=== PATIENT | male | born 1960 | race Caucasian/White ===

== ENCOUNTER 2020-02-04 10:04 | Emergency (ER) | payer SELFPAY ==
[2020-02-04 10:44] LABS: Absolute Lymphocytes (CBC) 0.2 K/uL (0.7-4.9); Basophils % 0.2 % (0-1.3); Hematocrit 27.5 % (39.6-49.0); Lymphocytes % 4.2 % (15.3-44.8); MPV 7.5 fL (7.6-11.3); RBC Red Blood Cell Count 2.92 M/uL (4.33-5.43)
[2020-02-04 10:48] LABS: Protime INR 1.03
[2020-02-04] MEDS ORDERED: ONDANSETRON 4 MG/2 ML VIAL ONE (10:59)
[2020-02-04] MEDS ORDERED: NA CHLORIDE 0.9% 250 ML ONE (10:59)
[2020-02-04] MEDS ORDERED: FAMOTIDINE 20 MG/2 ML VIAL IV ONE (10:59)
[2020-02-04] MEDS ORDERED: CEFEPIME/SWI 2gm 2 GM/20 ML SYR IV ONE (11:00)
[2020-02-04 11:03] LABS: Albumin 3.5 g/dL (3.4-5.0); Bilirubin Direct 0.1 mg/dL (0-0.2); Bilirubin Total 0.4 mg/dL (0.2-1.0); Troponin (Emerg Dept Use Only) 0.02 ng/mL (0.0-0.045)
--- NOTE | 2020-02-04 11:28 | ER ---
Nurse's Notes [facility] Name: Dg Camacho Age: 59 yrs Sex: Male : 1960 Arrival Date: 02/04/2020 Time: 10:07 Bed 4 Private MD: Diagnosis: Other sepsis Presentation: 02/03 10:10 Chief complaint: EMS states: NAUSEA AND DIARRHEA THIS MORNING WITH FEVER. Coronavirus bp screen: diarrhea, fever, nausea, Client presents with at least one sign or symptom that may indicate coronavirus-19. Standard/surgical mask placed on the client. Provider contacted for isolation considerations. Ebola Screen: No symptoms or risks identified at this time. Initial Sepsis Screen: Does the patient meet any 2 criteria? Temp <36.0*C (96.8*F)) or > 38.3*C (100.9*F). HR > 90 bpm. Yes Does the patient have a suspected source of infection? No. Patient's initial sepsis screen is negative. Risk Assessment: Do you want to hurt yourself or someone else? Patient reports no desire to harm self or others. Onset of symptoms was February 04, 2020. 10:10 Method Of Arrival: EMS: [facility] bp 10:10 Acuity: LIZ 3 bp Triage Assessment: 10:12 General: Appears distressed, uncomfortable, ill, Behavior is cooperative, appropriate bp for age, anxious. Pain: Denies pain. EENT: No deficits noted. Neuro: No deficits noted. Cardiovascular: Rhythm is sinus tachycardia. Respiratory: Airway is patent Respiratory effort is even, unlabored. GI: Abdomen is obese, Reports diarrhea, nausea. : No signs and/or symptoms were reported regarding the genitourinary system. Derm: No deficits noted. Musculoskeletal: No deficits noted. Historical: - Allergies: 10:12 PENICILLINS; bp - PMHx: 10:12 Diabetes - IDDM; Hypertension; ESRD; Dialysis; bp - Immunization history:: Adult Immunizations unknown. - Social history:: Smoking status: Patient denies any tobacco usage or history of. Screenin:10 Abuse screen: Denies threats or abuse. Denies injuries from another. Nutritional bp screening: No deficits noted. Tuberculosis screening: No symptoms or risk factors identified. Fall Risk None identified. Assessment: 10:10 General: SEE TRIAGE NOTE. bp 10:55 Reassessment: awaiting pharmacy to bring cefepime. ss 11:45 Reassessment: Pt denies pain/ nausea. Pt reports that he feels better than when he ss first arrived, but is still not feeling "100%". 12:16 Reassessment: Patient appears in no apparent distress at this time. Patient and/or ss family updated on plan of care and expected duration. Pain level reassessed. Pt updated on plan of care. Transfer initiated with [facility]. Pt agrees with plan of care. Flagyl infusing at this time. Awaiting for infusion to complete prior to starting VANC infusion. Pt is resting in exam room 4. Eyes closed. Respirations remain even and unlabored. 13:01 Reassessment: Patient appears in no apparent distress at this time. Patient and/or ss family updated on plan of care and expected duration. Pain level reassessed. Patient is alert, oriented x 3, equal unlabored respirations, skin warm/dry/pink. report given to MIRZA Lazaro at [facility]. Awaiting EMS for transportation. Vital Signs: 10:10 BP 163 / 90; Pulse 120; Resp 20; Temp 101.3; Pulse Ox 100% ; bp 10:42 BP 157 / 55; Pulse 109; Resp 18; Pulse Ox 96% on R/A; mh5 11:41 BP 150 / 52; Pulse 104; Resp 17; Pulse Ox 99% on R/A; ss 11:58 Temp 101.0(TE); ss 12:27 BP 154 / 49; Pulse 93; Resp 15; Pulse Ox 96% on R/A; Pain 0/10; ss 12:35 Temp 100.0(TE); ss ED Course: 10:07 Patient arrived in ED. em1 10:08 Kevin Juárez PA is PHCP. cp 10:08 Cortez Jordan MD is Attending Physician. cp 10:10 Jesus Virk, MIRZA is Primary Nurse. bp 10:10 Patient has correct armband on for positive identification. Bed in low position. Call bp light in reach. Side rails up X2. 10:12 Triage completed. bp 10:14 Arm band placed on. bp 10:41 Basic Metabolic Panel Sent. mh5 10:41 Blood Culture Adult (2) Sent. mh5 10:41 CBC with Diff Sent. mh5 10:41 CPK Sent. mh5 10:41 Lactate Sent. mh5 10:41 LFT's Sent. 5 10:41 Lipase Sent. 5 10:41 Procalcitonin Sent. 5 10:41 Protime (+inr) Sent. 5 10:41 Ptt, Activated Sent. 5 10:41 Troponin (emerg Dept Use Only) Sent. 5 10:42 Warm blanket given. price analyst on. Pulse ox on. NIBP on. 5 11:04 Chest Single View XRAY In Process Unspecified. EDMS 12:16 No provider procedures requiring assistance completed. Patient transferred, IV remains ss in place. Administered Medications: 10:50 Drug: Zofran (Ondansetron) 4 mg Route: IVP; Site: right upper arm; ss 11:59 Follow up: Response: No adverse reaction; Nausea is decreased ss 10:52 Drug: NS 0.9% 250 ml Route: IV; Rate: 250 ml/hr; Site: right antecubital; ss 12:00 Follow up: IV Status: Completed infusion; IV Intake: 250ml ss 10:54 Drug: Pepcid 20 mg Route: IVP; Site: right upper arm; ss 11:59 Follow up: Response: No adverse reaction ss 11:45 Drug: Tylenol 1000 mg Route: PO; ss 12:37 Follow up: Response: No adverse reaction; Temperature is decreased ss 11:48 Drug: Cefepime 2 grams Route: IVPB; Rate: 200 ml/hr; Infused Over: 30 mins; Site: right upper arm; 12:00 Follow up: given over 2-3 minutes per pharmacy instructions ss 12:00 Follow up: IV Status: Completed infusion ss 12:05 Drug: Flagyl 500 mg Volume: 100 ml; Route: IVPB; Rate: 200 ml/hr; Infused Over: 30 ss mins; Site: right upper arm; 12:36 Follow up: IV Status: Completed infusion; IV Intake: 100ml ss 12:37 Drug: vancoMYCIN 1 grams Route: IVPB; Infused Over: 2 hrs; Site: right upper arm; ss 12:37 Follow up: IV Status: Infusion continued upon transfer ss Intake: 12:00 IV: 250ml; Total: 250ml. ss 12:36 IV: 100ml; Total: 350ml. Outcome: 11:27 ER care complete, transfer ordered by . cp 12:16 Condition: improved ss 12:16 Instructed on the need for transfer. 13:21 Transferred by ground EMS to [facility], Transfer form completed. ss 13:22 Patient left the ED. ss Signatures: Dispatcher [employer] Dg Rae em1 Riddhi Araujo, MIRZA RN ss Kevin Juárez PA PA cp Martinez, Maria [facility] Jesus Virk, RN RN bp
--- NOTE | 2020-02-04 11:29 | EDPHYS ---
Physician Documentation [facility] Name: Dg Camacho Age: 59 yrs Sex: Male : 1960 Arrival Date: 02/04/2020 Time: 10:07 Bed 4 Private MD: ED Physician Cortez Jordan HPI: 02/03 10:15 This 59 yrs old Male presents to ER via EMS with complaints of Fever. cp 10:15 The patient reports fever, with an emergency department temperature of 101.3 degrees cp Fahrenheit. Onset: The symptoms/episode began/occurred this morning. 10:15 Associated signs and symptoms: Pertinent positives: nausea, vomiting, Pertinent cp negatives: abdominal pain, altered mental status, chest pain, cough, diarrhea, headache, shortness of breath. Severity of symptoms: in the emergency department the symptoms are unchanged despite home interventions. Patient reports he has been unable to perform home peritoneal dialysis since Wednesday due to concern for obstructed port. Patient reports fever and chills since this morning, nausea and vomiting. Historical: - Allergies: 10:12 PENICILLINS; bp - PMHx: 10:12 Diabetes - IDDM; Hypertension; ESRD; Dialysis; bp - Immunization history:: Adult Immunizations unknown. - Social history:: Smoking status: Patient denies any tobacco usage or history of. ROS: 10:15 Constitutional: Positive for chills, fever, poor PO intake. cp 10:15 Eyes: Negative for injury, pain, redness, and discharge. cp 10:15 ENT: Negative for ear pain, sore throat, difficulty swallowing, difficulty handling cp secretions. 10:15 Cardiovascular: Negative for chest pain, edema. 10:15 Respiratory: Negative for cough, shortness of breath, wheezing. 10:15 Abdomen/GI: Positive for nausea and vomiting, Negative for abdominal pain, diarrhea, constipation, black/tarry stool, rectal bleeding. 10:15 Back: Negative for pain at rest, pain with movement. 10:15 Skin: Negative for rash. 10:15 Neuro: Negative for altered mental status, headache, weakness. 10:15 All other systems are negative. Exam: 10:20 Constitutional: The patient appears in no acute distress, alert, awake, cp non-diaphoretic, non-toxic, well developed, well nourished, febrile. 10:20 Head/Face: Normocephalic, atraumatic. cp 10:20 Eyes: Periorbital structures: appear normal, Pupils: equal, round, and reactive to light and accomodation, Extraocular movements: intact throughout, Conjunctiva: normal, no exudate, no injection, Sclera: no appreciated abnormality, Lids and lashes: appear normal, bilaterally. 10:20 ENT: External ear(s): are unremarkable, Nose: is normal, Mouth: Lips: moist, Oral mucosa: moist, Posterior pharynx: Airway: no evidence of obstruction, patent. 10:20 Neck: ROM/movement: is normal, is supple, without pain, no range of motions limitations, no meningismus. 10:20 Chest/axilla: Inspection: normal, Palpation: is normal, no crepitus, no tenderness. 10:20 Cardiovascular: Rate: tachycardic, Rhythm: regular, Edema: is not appreciated, JVD: is not appreciated. 10:20 Respiratory: the patient does not display signs of respiratory distress, Respirations: normal, no use of accessory muscles, no retractions, labored breathing, is not present, Breath sounds: are clear throughout, no decreased breath sounds, no stridor, no wheezing. 10:20 Abdomen/GI: Inspection: distension, is not seen, Bowel sounds: active, all quadrants, Palpation: abdomen is soft and non-tender, in all quadrants, rebound tenderness, is not appreciated, voluntary guarding, is not appreciated, involuntary guarding, is not appreciated. 10:20 Back: CVA tenderness, is absent. 10:20 Skin: cellulitis, is not appreciated, no rash present. 10:20 Neuro: Orientation: to person, place \T\ time. Mentation: is normal, Motor: moves all fours, strength is normal, Sensation: is normal. 10:51 ECG was reviewed by the Attending Physician. cp Vital Signs: 10:10 BP 163 / 90; Pulse 120; Resp 20; Temp 101.3; Pulse Ox 100% ; bp 10:42 BP 157 / 55; Pulse 109; Resp 18; Pulse Ox 96% on R/A; mh5 11:41 BP 150 / 52; Pulse 104; Resp 17; Pulse Ox 99% on R/A; ss 11:58 Temp 101.0(TE); ss 12:27 BP 154 / 49; Pulse 93; Resp 15; Pulse Ox 96% on R/A; Pain 0/10; ss 12:35 Temp 100.0(TE); ss MDM: 10:12 Patient medically screened. 11:00 Differential diagnosis: pneumonia UTI, sepsis. 12:35 Physician consultation: was contacted at 12:30, regarding regarding transfer, to [facility]. patient's condition, would like medications started, Vancomycin and Flagyl, DR Jones is consulting physician. 12:35 Data reviewed: vital signs, nurses notes, lab test result(s), EKG, radiologic studies, cp plain films, I have discussed the patient's presentation/case with the attending Emergency Department Physician;. Test interpretation: by ED physician or midlevel provider: ECG. Counseling: I had a detailed discussion with the patient and/or guardian regarding: the historical points, exam findings, and any diagnostic results supporting the discharge/admit diagnosis, lab results, radiology results, the need to transfer to another facility, [facility] does not immediately have the required specialist. 02/03 10:11 Order name: Basic Metabolic Panel; Complete Time: 11:21 02/03 10:11 Order name: Blood Culture Adult (2) 02/03 10:11 Order name: CBC with Diff; Complete Time: 12:21 02/03 11:21 Interpretation: Normal except: WBC 3.7; RBC 2.92; HGB 9.4; HCT 27.5; PLT 150; MPV 7.5; cp HESHAM% 93.2; LYM% 4.2; MN% 0.7; LYMA 0.2; MNA 0.0. 02/03 10:11 Order name: CPK; Complete Time: 11:21 02/03 10:11 Order name: Lactate; Complete Time: 11:03 02/03 11:03 Interpretation: Within normal limits: LAC 0.8. 02/03 10:11 Order name: LFT's; Complete Time: 11:21 02/03 11:46 Interpretation: Normal except: ALK 192; A/G 1.0. 02/03 10:11 Order name: Lipase; Complete Time: 11:21 02/03 10:11 Order name: Procalcitonin; Complete Time: 11:21 02/03 10:11 Order name: Protime (+inr); Complete Time: 11:03 02/03 10:11 Order name: Ptt, Activated; Complete Time: 11:03 02/03 10:11 Order name: Troponin (emerg Dept Use Only); Complete Time: 11:21 02/03 10:48 Order name: Manual Differential; Complete Time: 12:21 EDMT 02/03 12:22 Interpretation: Normal except: SEGS 90; BANDS [F] 5; LYM 4. 02/03 10:52 Order name: Glucose, Ancillary Testing; Complete Time: 11:03 EDMT 02/03 10:11 Order name: Chest Single View XRAY; Complete Time: 12:21 02/03 10:11 Order name: Accucheck; Complete Time: 10:41 02/03 10:11 Order name: Cardiac monitoring; Complete Time: 10:42 02/03 10:11 Order name: EKG - Nurse/Tech; Complete Time: 10:42 02/03 10:11 Order name: IV Saline Lock - Large Bore; Complete Time: 10:42 cp 02/03 12:51 Order name: Urine Microscopic Only 02/03 12:51 Order name: Urine Culture 02/03 12:59 Order name: Urine Dipstick--Ancillary (enter results) [facility] 02/03 13:00 Order name: SARS-COV-2 RT PCR [facility] 02/03 10:11 Order name: Labs collected and sent; Complete Time: 10:55 02/03 10:11 Order name: O2 Per Protocol; Complete Time: 10:15 02/03 10:11 Order name: O2 Sat Monitoring; Complete Time: 10:15 02/03 10:11 Order name: Urine Dipstick-Ancillary (obtain specimen); Complete Time: 12:55 cp 02/03 11:28 Order name: Vital Signs: please update vitals to include temp; Complete Time: 11:41 cp 02/03 12:51 Order name: Urine Dipstick-Ancillary (obtain specimen); Complete Time: 12:55 cp EC:51 Rate is 108 beats/min. Rhythm is regular. NV interval is normal. QRS interval is cp normal. QT interval is normal. Interpreted by me. Reviewed by me. Administered Medications: 10:50 Drug: Zofran (Ondansetron) 4 mg Route: IVP; Site: right upper arm; ss 11:59 Follow up: Response: No adverse reaction; Nausea is decreased ss 10:52 Drug: NS 0.9% 250 ml Route: IV; Rate: 250 ml/hr; Site: right antecubital; ss 12:00 Follow up: IV Status: Completed infusion; IV Intake: 250ml ss 10:54 Drug: Pepcid 20 mg Route: IVP; Site: right upper arm; ss 11:59 Follow up: Response: No adverse reaction ss 11:45 Drug: Tylenol 1000 mg Route: PO; ss 12:37 Follow up: Response: No adverse reaction; Temperature is decreased ss 11:48 Drug: Cefepime 2 grams Route: IVPB; Rate: 200 ml/hr; Infused Over: 30 mins; Site: right ss upper arm; 12:00 Follow up: given over 2-3 minutes per pharmacy instructions ss 12:00 Follow up: IV Status: Completed infusion ss 12:05 Drug: Flagyl 500 mg Volume: 100 ml; Route: IVPB; Rate: 200 ml/hr; Infused Over: 30 ss mins; Site: right upper arm; 12:36 Follow up: IV Status: Completed infusion; IV Intake: 100ml ss 12:37 Drug: vancoMYCIN 1 grams Route: IVPB; Infused Over: 2 hrs; Site: right upper arm; ss 12:37 Follow up: IV Status: Infusion continued upon transfer Disposition: 02/04 06:44 Co-signature as Attending Physician, Cortez Jordan MD I agree with the assessment and kdr plan of care. Disposition: 02/04/20 11:27 Transfer ordered to [facility]. Diagnosis is Other sepsis. - Reason for transfer: Higher level of care. - Accepting physician is DR Abelardo Brar. - Condition is Stable. - Problem is new. - Symptoms have improved. Signatures: Dispatcher [employer] EDMS Cortez Jordan MD MD kdr Smirch, Shelby, RN RN ss Kevin Juárez PA PA cp Peltier, Brian, MIRZA RN bp Corrections: (The following items were deleted from the chart) 02/03 11:21 11:03 Normal except: WBC 3.7; RBC 2.92; HGB 9.4; HCT 27.5; PLT 150; MPV 7.5; HESHAM% 93.2; cp LYM% 4.2; MN% 0.7; LYMA 0.2. cp 11:58 11:27 02/04/2020 11:27 Transfer ordered to [facility]. Diagnosis is Other sepsis. cp Reason for transfer: Higher level of care. Accepting physician is Doctor. Condition is Stable. Problem is new. Symptoms have improved. cp 12:08 11:30 CORONAVIRUS+MR.LAB.BRZ ordered. EDMS EDMS 13:22 11:58 02/04/2020 11:27 Transfer ordered to [facility]. Diagnosis is Other sepsis. ss Reason for transfer: Higher level of care. Accepting physician is DR Abelardo Brar. Condition is Stable. Problem is new. Symptoms have improved. cp
[2020-02-04] MEDS ORDERED: ACETAMINOPHEN 500 MG TAB ONE (11:56)
--- NOTE | 2020-02-04 12:16 | RAD REPORT ---
EXAM DESCRIPTION: RAD - Chest Single View - 02/04/2020 11:02 am CLINICAL HISTORY: FEVER, abdominal pain COMPARISON: April 2011 TECHNIQUE: AP portable chest image was obtained 02/04/2020 11:02 am . FINDINGS: Lungs are clear. Heart and vasculature are normal. No measurable pleural effusion and no p neumothorax. No acute bony abnormality seen. No acute aortic findings suspected. IMPRESSION: No acute cardiopulmonary process.
[2020-02-04 12:18] LABS: Blood Morphology Comment NOT SEEN (NOT SEEN); Platelet Estimate ADEQ
[2020-02-04] MEDS ORDERED: METRONIDAZOLE 500mg IVPB 500 MG/100 ML BAG IV ONE (12:19)
[2020-02-04] MEDS ORDERED: VANCOMYCIN/NS 1 gm 1 GM/250 ML BAG IVPB ONE (13:00)
[2020-02-04 13:01] LABS: Urine Blood 1+ (NEG); Urine Glucose NEGATIVE (NEG); Urine Protein 3+ (NEG)
[2020-02-04 13:05] LABS: Urine Bacteria <20 /HPF (NONE SEEN); Urine Culture Reflex Order NOT NEEDED; Urine RBC <5 /HPF (NONE SEEN)
[2020-02-04 13:32] VITALS: BP 154/49; O2SAT 96
[2020-02-04 13:34] VITALS: TEMP 100
== END 2020-02-04 13:22 | disposition short-term general hospital (02) ==
LOC: ER 10:04
DX: A41.89 Other specified sepsis (principal); Z20.828 Contact with and (suspected) exposure to other viral communicable diseases; R11.2 Nausea with vomiting, unspecified; E11.22 Type 2 diabetes mellitus with diabetic chronic kidney disease; I12.0 Hypertensive chronic kidney disease with stage 5 chronic kidney disease or end stage renal disease; N18.6 End stage renal disease; Z99.2 Dependence on renal dialysis; Z88.0 Allergy status to penicillin
CPT/HCPCS: 36415; 71045; 80048; 80076; 81003; 81015; 82550; 82947; 83605; 83690; 84145; 84484; 85025; 85610; 85730; 87040; 87086; 87088; 93005; 99285; J0692; J2405; J3370; J7050; U0003

== ENCOUNTER 2020-04-20 08:43 | Emergency (ER) | payer OTHER, SELFPAY ==
--- OUTSIDE RECORDS SUMMARY | 2020-04-20 08:47 | XMS REPORT | Clinical Summary ---
:1960 Author Organization [facility] Address [address] [place] [address] Care Team Providers Name Role Phone Julio César Marin MD Primary Care Provider Allergies Active Allergy Reactions Severity Noted Date Comments Penicillins Other (See Comments) 06/12/2008 Allergy as a child Medications Medication Sig Dispensed Refills Start End Status Date Date FLUoxetine (PROzac) 10 Take 10 mg by 0 Active MG capsule mouth daily. INSULIN SUBCUTANEOUS Inject under 0 Active PUMP, HUMALOG, 100 the skin UNITS/ML INSULIN PUMP continuously. INFUSION (HumaLOG) albuterol (ACCUNEB) Take 2.5 mg by 0 Active 2.5 mg /3 mL (0.083 %) nebulization nebulizer solution every 4 (four) hours as needed for wheezing. doxazosin (CARDURA) 8 Take by mouth 2 0 Active MG tablet (two) times a day. atorvastatin (LIPITOR) Take 40 mg by 0 Active 40 MG tablet mouth nightly. ALPRAZolam (XANAX) 0.5 Take 0.5 mg by 0 Active MG tablet mouth as needed for anxiety. losartan (COZAAR) 100 Take 100 mg by 0 Active MG tablet mouth nightly. vit B complex-vitamin Take 1 tablet 0 Active C-folic acid by mouth daily. (NEPHRO-JOSAFAT OTC) 0.8 mg tablet sevelamer (RENAGEL) Take 800 mg by 0 Active 800 MG tablet mouth 3 (three) times a day with meals. furosemide (LASIX) 80 Take 80 mg by 0 Active mg tablet mouth 2 (two) times a day. famotidine (PEPCID AC Take by mouth 2 0 Active MAXIMUM STRENGTH ORAL) (two) times a day. ondansetron (ZOFRAN) 4 Take 4 mg by 0 Active MG tablet mouth every 8 (eight) hours as needed for nausea or vomiting. carvediloL (COREG) Take 12.5 mg by 0 Active 12.5 MG tablet mouth 2 (two) times a day with meals. NIFEdipine XL Take 30 mg by 0 Ac tive (PROCARDIA XL) 30 MG mouth daily. 24 hr tablet polyethylene glycol Take 17 g by 30 packet 0 02/06/20 Active (MIRALAX) 17 gram mouth daily as 20 packet needed for constipation. multivitamin with Take 1 tablet 0 Discontinued minerals tablet by mouth daily. 020 (Patient Discharge) diltiazem (TIAZAC) 420 Take 420 mg by 0 Discontinued MG 24 hr capsule mouth daily. 020 (Stop Taking at [facility]) hydroCHLOROthiazide Take 37.5 mg by 0 /05 11/ Discontinued (HYDRODIURIL) 25 MG mouth daily. 020 (Stop Taking tablet Take 1 and 04/06 at [facility]) tablets daily clonIDINE HCl Take 0.2 mg by 0 D iscontinued (CATAPRES) 0.2 MG mouth 3 (three) 020 (Patient tablet times a day. [facility]) diltiazem CD (CardIZEM Take 1 capsule 30 capsule 0 07/31/19 0 CD) 360 MG 24 hr (360 mg total) 20 020 capsule by mouth daily for 30 days. furosemide (LASIX) 80 Take 1 tablet 30 tablet 0 07/30/19 05/2 6/2 mg tablet (80 mg total) 20 020 by mouth daily for 30 days. valsartan (DIOVAN) 320 Take 1 tablet 30 tablet 0 07/31/1901/06 MG tablet (320 mg total) 20 020 by mouth daily for 30 days. diltiazem (TIAZAC) 360 Take 360 mg by 0 Discontinued MG 24 hr capsule mouth. 020 (St op Taking at [facility]) valsartan (DIOVAN) 320 Take 320 mg by 0 Discontinued MG tablet mouth daily. 020 ([facility] st Cleanup) amLODIPine (NORVASC) 5 Take 1 tablet 0 10/04 Discontinued mg tablet by mouth daily. 020 tamsulosin (Flomax) Take 1 capsule 30 capsule 0 10/12/19 08/0 8/2 0.4 mg capsule (0.4 mg total) 20 020 by mouth daily for 30 days. valsartan (DIOVAN) 320 Take 320 mg by 0 Discontinued MG tablet mouth daily. 020 (Stop T aking at [facility]) doxycycline Take 1 capsule 10 capsule 0 02/06/20 Ex pired (VIBRAMYCIN) 100 MG (100 mg total) 20 020 capsule by mouth 2 (two) times a day with meals for 5 days. docusate sodium Take 1 capsule 60 capsule 0 02/06/20 (Colace) 100 MG (100 mg total) 20 020 capsule by mouth 2 (two) times a day for 30 days. psyllium (Metamucil) Take 1 capsule 30 capsule 0 02/06/2006/04 0.52 gram capsule (0.52 g total) 20 020 by mouth daily for 30 days. Active Problems Problem Noted Date Sepsis 02/04/2020 Peritoneal dialysis catheter infection 02/04/2020 ESRD (end stage renal disease) ([facility]) 2020 TTS 09/11/19 20 Malignant hypertension 02/23/2019 Hypertensive crisis 02/23/2019 Class 2 obesity in adult 02/12/2019 Mixed hyperlipidemia 02/12/2019 Type 2 diabetes mellitus without complication, with lo ng-term current use 02/11/2019 of insulin Essential hypertension 02/11/2019 Iron deficiency anemia 02/11/2019 JANN (obstructive sleep apnea) 02/11/2019 Hypothyroidism 02/11/2019 Resolved Problems Problem Noted Date Resolved Date Acute renal failure (ARF) 07/25/2019 09/11/2019 Chronic kidney disease (CKD) stage G4/A3, severely decreased 02/23/2019 09/11/2019 glomerular filtration rate (GFR) between 15-29 mL/min/1.73 square meter and albuminuria creatinine ratio greater than 300 mg/g ARF (acute renal failure) 02/10/2019 09/11/2019 Encounters Date Type Specialty Care Team Description 02/04/2020 - Hospital Nephrology Maykel, Sepsis without acute 02/06/2020 Encounter Abelardo Lee organ dysfunct ion, due IIIMD to unspecified Cristian, Sascha organism ([facility]) MD Elias (Primary Dx) 11/28/2019 - Emergency Emergency Medicine Tu, Yen-Te Abdominal pain, 11/29/2019 MD Chang unspecified ab dominal location (Prima ry Dx) 10/12/2019 Emergency Emergency Medicine Tu, Yen-Te Urinary r etention MD Chang (Primary Dx) 10/12/2019 Travel 10/12/2019 Telephone Cardiovascular Edie Ruiz RN 10/11/2019 Anesthesia Event Vascular Surgery Estuardo Hodges MD Saladino, Erin, JEANA 10/11/2019 Surgery Vascular Surgery Clara Velez Laparoscopi randell Toro MD of a Peritoneal Dialysis Cathet er and tap block. 10/11/2019 Hospital Vascular Surgery Clara Velez ESRD (end s tage renal Encounter MD Cortez disease) ([facility]) 2019 TTS 10/11/2019 Travel 10/10/2019 Telephone Cardiovascular Bailee Cooney MA 10/09/2019 Lab Lab Clara Velez ESRD (end stage renal MD Cortez disease) ([facility]) 2019 TTS 10/09/2019 Telephone Cardiovascular Eros ESRD (end sta ge renal Bailee, [place] disease) ([facility]) 2019 TTS (Primary Dx ) 10/09/2019 Travel 10/02/2019 Prep for Surgery Cardiovascular Eros, ESRD (end stage renal Bailee, [place] disease) ([facility]) 2019 TTS (Primary Dx ) 09/29/2019 Telephone Cardiovascular Maude Richter MA 09/28/2019 Telephone Cardiovascular Clara Velez MD 09/19/2019 Telephone Cardiovascular Clara Velez MD 09/19/2019 Travel 09/17/2019 Refill Internal Medicine India Martinez MD 09/14/2019 Refill Internal Medicine India Martinez MD 09/13/2019 Telephone Cardiovascular Clara Velez MD 09/13/2019 Prep for Surgery Cardiovascular Eros, ESRD (end stage renal Bailee, [place] disease) ([facility]) 2019 TTS (Primary Dx ) 09/13/2019 Travel 09/13/2019 Telephone Cardiovascular Bailee Cooney MA 09/11/2019 Office Visit Cardiovascular Clara Velez ESRD (end sta ge renal MD Cortez disease) ([facility]) 2019 TTS (Primary Dx ) 09/08/2019 Telephone Cardiovascular Clara Velez MD 09/08/2019 Telephone Cardiovascular Chase Gandara MA 09/05/2019 Telephone Cardiovascular Clara Velez MD 08/31/2019 Telephone Cardiovascular Clara Velez MD 08/30/2019 Refill Internal Medicine India Martinez MD 08/15/2019 Travel 08/10/2019 Telephone Cardiovascular Jez Umana MA 07/31/2019 Telephone Nephrology Danni Alexander RN 07/30/2019 Refill Internal Medicine India Martinez MD 07/30/2019 Refill Internal Medicine India Martinez MD 07/25/2019 - Hospital Nephrology [facility], ESRD (end stage renal disease) (HCC) (Primary Dx); 07/30/2019 Encounter Kellee Stokes MD Type 2 diabet es mellitus with hyperosmolarity without coma, without long-term current use of insulin (HCC); Essential hyper tension after 04/20/2019 Surgical History Surgery Date Site/Laterality Comments TONSILLECTOMY INSERTION, CATHETER, DIALYSIS, 10/11/2019 Abdomen/N/A P rocedure: Laparoscopic PERITONEAL, LAPAROSCOPIC placeme nt of a Peritoneal Dialysis Cathete r and tap block.; Surgeon : Clara Velez MD; Loca t[facility]: [facility]; Service: [facility]; Laterality: N/A; Medical History Medical History Date Comments Asthma Diabetes mellitus (HCC) Hypertension Disease of thyroid gland Renal disorder Hypercholesteremia Coronary artery disease Family History Medical History Relation Name Comments Diabetes Brother Cancer Father Cancer Mother Heart disease Mother Relation Name Status Comments Brother Father Mother Social History Tobacco Use Types Packs/Day Years Used Date Former Smoker Electronic Cigarettes 30 Smokeless Tobacco: Former User Q uit: 02/23/2019 Comments: smokeless tobacco stopped 02/04 019 Alcohol Use Drinks/Week oz/Week Comments Never Alcohol Habits Answer Date Recorded How often do you have a drink containing alcohol? Never 07/25/2019 How many drinks containing alcohol do you have on a typical Not asked day when you are drinking? How often do you have six or more drinks on one occasion? No t asked Sex Assigned at Date Recorded Not on file Last Filed Vital Signs Vital Sign Reading Time Taken Comments Blood Pressure 144/63 02/06/2020 11:09 AM MARKETING COMMUNICATION MANAGER Pulse 70 02/06/2020 11:09 AM MARKETING COMMUNICATION MANAGER Temperature 37.1 C (98.7 F) 02/06/2020 11:09 AM MARKETING COMMUNICATION MANAGER Respiratory Rate 18 02/06/2020 11:09 AM MARKETING COMMUNICATION MANAGER Oxygen Saturation 98% 02/06/2020 11:09 AM MARKETING COMMUNICATION MANAGER Inhaled Oxygen Concentration - - Weight 116 kg (255 lb 14.4 oz) 02/04/2020 3:14 PM MARKETING COMMUNICATION MANAGER Height 182.9 cm (6') 02/04/2020 3:14 PM MARKETING COMMUNICATION MANAGER Body Mass Index 34.71 02/04/2020 3:14 PM MARKETING COMMUNICATION MANAGER Plan of Treatment Health Maintenance Due Date Last Done Comments DIABETES: RETINAL EYE EXAM 1972 DIABETIC FOOT EXAM 1972 COVID-19 VACCINE (1 of 2) 1978 COLONOSCOPY SCREENING 2012 SHINGLES VACCINES (#1) 2012 INFLUENZA VACCINE 11/04/2019 Implants Implanted Type Area Fha Underwriter Device Shelf Model / Identifier Expiration Date Ser ial / Lot Injector/ Injector/ Infusion Infusion Systems Systems Description:insulin pump and blood suga r sensor Procedures Procedure Name Priority Date/Time Associated Comments Diagnosis POC GLUCOSE Routine 02/06/2020 12:05 Results for this PM MARKETING COMMUNICATION MANAGER procedure are i n the results section. POC GLUCOSE Routine 02/06/2020 7:31 Results for this AM MARKETING COMMUNICATION MANAGER procedure are i n the results section. XR ABDOMEN 1 VW STAT 02/06/2020 7:00 Results for this PORTABLE AM MARKETING COMMUNICATION MANAGER procedure are i n the results section. POC GLUCOSE Routine 02/06/2020 5:10 Results for this AM MARKETING COMMUNICATION MANAGER procedure are i n the results section. HC COMPLETE BLD COUNT Routine 02/06/2020 5:00 Re sults for this W/AUTO DIFF AM MARKETING COMMUNICATION MANAGER procedure are i n the results section. HEPATITIS B SURFACE Routine 02/06/2020 4:00 Resu lts for this ANTIGEN AM MARKETING COMMUNICATION MANAGER procedure are i n the results section. ESTIMATED GFR Routine 02/06/2020 4:00 Results fo r this AM MARKETING COMMUNICATION MANAGER procedure are i n the results section. VITAMIN D 1,25 Routine 02/06/2020 4:00 Results f or this DIHYDROXY LEVEL, SERUM AM MARKETING COMMUNICATION MANAGER proce dure are in the results section. PHOSPHORUS LEVEL Routine 02/06/2020 4:00 Results for this AM MARKETING COMMUNICATION MANAGER procedure are i n the results section. MAGNESIUM LEVEL Routine 02/06/2020 4:00 Results for this AM MARKETING COMMUNICATION MANAGER procedure are i n the results section. COMPREHENSIVE METABOLIC Routine 02/06/2020 4:00 Results for this PANEL AM MARKETING COMMUNICATION MANAGER procedure are i n the results section. VANCOMYCIN LEVEL, Routine 02/06/2020 4:00 Result s for this RANDOM AM MARKETING COMMUNICATION MANAGER procedure are i n the results section. POC GLUCOSE Routine 02/05/2020 11:09 Results for this PM MARKETING COMMUNICATION MANAGER procedure are i n the results section. POC GLUCOSE Routine 02/05/2020 7:13 Results for this PM MARKETING COMMUNICATION MANAGER procedure are i n the results section. RESPIRATORY PATHOGEN Routine 02/05/2020 5:40 Res ults for this PANEL WITH COVID-19 PM MARKETING COMMUNICATION MANAGER procedur e are in the results section. POC GLUCOSE Routine 02/05/2020 5:11 Results for this PM MARKETING COMMUNICATION MANAGER procedure are i n the results section. POC GLUCOSE Routine 02/05/2020 12:03 Results for this PM MARKETING COMMUNICATION MANAGER procedure are i n the results section. POC GLUCOSE Routine 02/05/2020 7:56 Results for this AM MARKETING COMMUNICATION MANAGER procedure are i n the results section. XR ABDOMEN 1 VW Routine 02/05/2020 6:40 Results for this PORTABLE AM MARKETING COMMUNICATION MANAGER procedure are i n the results section. POC GLUCOSE Routine 02/05/2020 6:17 Results for this AM MARKETING COMMUNICATION MANAGER procedure are i n the results section. TOTAL IRON BINDING Routine 02/05/2020 5:12 Resul ts for this CAPACITY AM MARKETING COMMUNICATION MANAGER procedure are i n the results section. LACTIC ACID LEVEL Routine 02/05/2020 5:12 Result s for this AM MARKETING COMMUNICATION MANAGER procedure are i n the results section. VITAMIN B12 LEVEL Routine 02/05/2020 5:12 Result s for this AM MARKETING COMMUNICATION MANAGER procedure are i n the results section. TOTAL IRON BINDING Routine 02/05/2020 5:12 Resul ts for this CAPACITY AM MARKETING COMMUNICATION MANAGER procedure are i n the results section. LACTIC ACID LEVEL Routine 02/05/2020 5:12 Result s for this AM MARKETING COMMUNICATION MANAGER procedure are i n the results section. FERRITIN LEVEL Routine 02/05/2020 5:12 Results f or this AM MARKETING COMMUNICATION MANAGER procedure are i n the results section. ESTIMATED GFR Routine 02/05/2020 5:12 Results fo r this AM MARKETING COMMUNICATION MANAGER procedure are i n the results section. PHOSPHORUS LEVEL Routine 02/05/2020 5:12 Results for this AM MARKETING COMMUNICATION MANAGER procedure are i n the results section. MAGNESIUM LEVEL Routine 02/05/2020 5:12 Results for this AM MARKETING COMMUNICATION MANAGER procedure are i n the results section. FOLATE LEVEL Routine 02/05/2020 5:12 Results for this AM MARKETING COMMUNICATION MANAGER procedure are i n the results section. COMPREHENSIVE METABOLIC Routine 02/05/2020 5:12 Results for this PANEL AM MARKETING COMMUNICATION MANAGER procedure are i n the results section. HC COMPLETE BLD COUNT Routine 02/05/2020 5:12 Re sults for this W/AUTO DIFF AM MARKETING COMMUNICATION MANAGER procedure are i n the results section. CELL COUNT AND Routine 02/04/2020 11:30 Results f or this DIFFERENTIAL, BODY PM MARKETING COMMUNICATION MANAGER procedure are in FLUID the results section. POC GLUCOSE Routine 02/04/2020 10:02 Results for this PM MARKETING COMMUNICATION MANAGER procedure are i n the results section. URINE CULTURE Routine 02/04/2020 7:10 Results fo r this PM MARKETING COMMUNICATION MANAGER procedure are i n the results section. URINALYSIS SCREEN AND Routine 02/04/2020 7:09 Re sults for this MICROSCOPY, WITH REFLEX PM MARKETING COMMUNICATION MANAGER proc edure are in TO CULTURE the results section. URINE DRUGS OF ABUSE Routine 02/04/2020 7:09 Res ults for this SCREEN PM MARKETING COMMUNICATION MANAGER procedure are i n the results section. BLOOD CULTURE, AEROBIC Routine 02/04/2020 5:40 R esults for this & ANAEROBIC PM MARKETING COMMUNICATION MANAGER procedure are i n the results section. POC GLUCOSE Routine 02/04/2020 5:33 Results for this PM MARKETING COMMUNICATION MANAGER procedure are i n the results section. ECG 12-LEAD STAT 02/04/2020 5:28 Results for this PM MARKETING COMMUNICATION MANAGER procedure are i n the results section. BLOOD CULTURE, AEROBIC Routine 02/04/2020 5:24 R esults for this & ANAEROBIC PM MARKETING COMMUNICATION MANAGER procedure are i n the results section. GRAM STAIN ONLY Routine 02/04/2020 5:23 Results for this PM MARKETING COMMUNICATION MANAGER procedure are i n the results section. FUNGUS SMEAR Routine 02/04/2020 5:23 Results for this PM MARKETING COMMUNICATION MANAGER procedure are i n the results section. FUNGUS CULTURE Routine 02/04/2020 5:23 Results f or this PM MARKETING COMMUNICATION MANAGER procedure are i n the results section. HEMOGLOBIN A1C Routine 02/04/2020 5:20 Results f or this PM MARKETING COMMUNICATION MANAGER procedure are i n the results section. T4, FREE Routine 02/04/2020 4:45 Results for this PM MARKETING COMMUNICATION MANAGER procedure are i n the results section. THYROID STIMULATING Routine 02/04/2020 4:45 Resu lts for this HORMONE PM MARKETING COMMUNICATION MANAGER procedure are i n the results section. PHOSPHORUS LEVEL Routine 02/04/2020 4:45 Results for this PM MARKETING COMMUNICATION MANAGER procedure are i n the results section. MAGNESIUM LEVEL Routine 02/04/2020 4:45 Results for this PM MARKETING COMMUNICATION MANAGER procedure are i n the results section. LIPASE LEVEL Routine 02/04/2020 4:45 Results for this PM MARKETING COMMUNICATION MANAGER procedure are i n the results section. LACTIC ACID LEVEL Routine 02/04/2020 4:45 Result s for this PM MARKETING COMMUNICATION MANAGER procedure are i n the results section. ESTIMATED GFR Routine 02/04/2020 4:45 Results fo r this PM MARKETING COMMUNICATION MANAGER procedure are i n the results section. B NATRIURETIC PEPTIDE Routine 02/04/2020 4:45 Re sults for this PM MARKETING COMMUNICATION MANAGER procedure are i n the results section. CREATINE KINASE, TOTAL Routine 02/04/2020 4:45 R esults for this (CPK) PM MARKETING COMMUNICATION MANAGER procedure are i n the results section. COMPREHENSIVE METABOLIC Routine 02/04/2020 4:45 Results for this PANEL PM MARKETING COMMUNICATION MANAGER procedure are i n the results section. PARTIAL THROMBOPLASTIN Routine 02/04/2020 4:45 R esults for this TIME (PTT) PM MARKETING COMMUNICATION MANAGER procedure are i n the results section. PROTHROMBIN TIME WITH Routine 02/04/2020 4:45 Re sults for this INR PM MARKETING COMMUNICATION MANAGER procedure are i n the results section. HC COMPLETE BLD COUNT Routine 02/04/2020 4:45 Re sults for this W/AUTO DIFF PM MARKETING COMMUNICATION MANAGER procedure are i n the results section. BLOOD CULTURE, AEROBIC Routine 02/04/2020 4:45 R esults for this & ANAEROBIC PM MARKETING COMMUNICATION MANAGER procedure are i n the results section. COVID-19 QUALITATIVE STAT 02/04/2020 4:45 Res ults for this PCR PM MARKETING COMMUNICATION MANAGER procedure are i n the results section. CT ABDOMEN PELVIS WO STAT 11/29/2019 1:00 Res ults for this CONTRAST AM CDT procedure are i n the results section. ECG 12-LEAD STAT 11/28/2019 11:40 Results for this PM CDT procedure are i n the results section. ESTIMATED GFR STAT 11/28/2019 11:37 Results fo r this PM CDT procedure are i n the results section. URINALYSIS SCREEN AND STAT 11/28/2019 11:37 Re sults for this MICROSCOPY, WITH REFLEX PM CDT proc edure are in TO CULTURE the results section. LIPASE LEVEL STAT 11/28/2019 11:37 Results for this PM CDT procedure are i n the results section. COMPREHENSIVE METABOLIC STAT 11/28/2019 11:37 Results for this PANEL PM CDT procedure are i n the results section. HC COMPLETE BLD COUNT STAT 11/28/2019 11:37 Re sults for this W/AUTO DIFF PM CDT procedure are i n the results section. URINE CULTURE STAT 11/28/2019 11:32 Results fo r this PM CDT procedure are i n the results section. POC GLUCOSE Routine 10/11/2019 5:42 Results for this PM CDT procedure are i n the results section. POC GLUCOSE Routine 10/11/2019 5:23 Results for this PM CDT procedure are i n the results section. POC GLUCOSE Routine 10/11/2019 4:48 Results for this PM CDT procedure are i n the results section. POC GLUCOSE Routine 10/11/2019 4:24 Results for this PM CDT procedure are i n the results section. POC GLUCOSE Routine 10/11/2019 3:11 Results for this PM CDT procedure are i n the results section. POC GLUCOSE Routine 10/11/2019 2:25 Results for this PM CDT procedure are i n the results section. MO AN ELECTIVE Routine 10/11/2019 12:57 Results f or this ENDOTRACHEAL AIRWAY PM CDT procedur e are in the results section. INSERTION, CATHETER, 10/11/2019 12:11 ESRD (end stage DIALYSIS, PERITONEAL, PM CDT renal disease) LAPAROSCOPIC (HCC) POC PANEL 4 Routine 10/11/2019 11:05 Results for this AM CDT procedure are i n the results section. COVID-19 QUALITATIVE Routine 10/09/2019 11:50 ESRD (end stage Results for this PCR AM CDT renal disease) procedure are in (HCC) 2020 TTS the results section. POC GLUCOSE Routine 07/30/2019 12:12 Results for this PM CDT procedure are i n the results section. POC GLUCOSE Routine 07/30/2019 7:32 Results for this AM CDT procedure are i n the results section. ESTIMATED GFR Routine 07/30/2019 4:48 Results fo r this AM CDT procedure are i n the results section. BASIC METABOLIC PANEL Routine 07/30/2019 4:48 Re sults for this AM CDT procedure are i n the results section. HC COMPLETE BLD COUNT Routine 07/30/2019 4:48 Re sults for this W/AUTO DIFF AM CDT procedure are i n the results section. POC GLUCOSE Routine 07/29/2019 9:04 Results for this PM CDT procedure are i n the results section. POC GLUCOSE Routine 07/29/2019 5:12 Results for this PM CDT procedure are i n the results section. POC GLUCOSE Routine 07/29/2019 8:26 Results for this AM CDT procedure are i n the results section. ESTIMATED GFR Routine 07/29/2019 1:31 Results fo r this AM CDT procedure are i n the results section. PHOSPHORUS LEVEL Routine 07/29/2019 1:31 Results for this AM CDT procedure are i n the results section. MAGNESIUM LEVEL Routine 07/29/2019 1:31 Results for this AM CDT procedure are i n the results section. BASIC METABOLIC PANEL Routine 07/29/2019 1:31 Re sults for this AM CDT procedure are i n the results section. HC COMPLETE BLD COUNT Routine 07/29/2019 1:31 Re sults for this W/AUTO DIFF AM CDT procedure are i n the results section. POC GLUCOSE Routine 07/28/2019 9:13 Results for this PM CDT procedure are i n the results section. POC GLUCOSE Routine 07/28/2019 4:24 Results for this PM CDT procedure are i n the results section. HEMODIALYSIS Routine 07/28/2019 3:28 PM CDT GLUCOSE LEVEL STAT 07/28/2019 2:17 Results fo r this PM CDT procedure are i n the results section. HC COMPLETE BLD COUNT Routine 07/28/2019 4:55 Re sults for this W/AUTO DIFF AM CDT procedure are i n the results section. ESTIMATED GFR Routine 07/28/2019 4:00 Results fo r this AM CDT procedure are i n the results section. BASIC METABOLIC PANEL Routine 07/28/2019 4:00 Re sults for this AM CDT procedure are i n the results section. POC GLUCOSE Routine 07/28/2019 2:25 Results for this AM CDT procedure are i n the results section. POC GLUCOSE Routine 07/27/2019 11:24 Results for this PM CDT procedure are i n the results section. HEMOGLOBIN & HEMATOCRIT STAT 07/27/2019 9:20 Results for this PM CDT procedure are i n the results section. POC GLUCOSE Routine 07/27/2019 8:48 Results for this PM CDT procedure are i n the results section. POC GLUCOSE Routine 07/27/2019 6:29 Results for this PM CDT procedure are i n the results section. IR TUNNELED DIALYSIS Routine 07/27/2019 5:21 Res ults for this CATHETER PLACEMENT PM CDT procedure are in the results section. POC GLUCOSE Routine 07/27/2019 3:45 Results for this PM CDT procedure are i n the results section. HEMODIALYSIS Routine 07/27/2019 12:48 PM CDT POC GLUCOSE Routine 07/27/2019 11:21 Results for this AM CDT procedure are i n the results section. POC GLUCOSE Routine 07/27/2019 7:35 Results for this AM CDT procedure are i n the results section. ESTIMATED GFR Routine 07/27/2019 6:16 Results fo r this AM CDT procedure are i n the results section. PHOSPHORUS LEVEL Routine 07/27/2019 6:16 Results for this AM CDT procedure are i n the results section. MAGNESIUM LEVEL Routine 07/27/2019 6:16 Results for this AM CDT procedure are i n the results section. BASIC METABOLIC PANEL Routine 07/27/2019 6:16 Re sults for this AM CDT procedure are i n the results section. HC COMPLETE BLD COUNT Routine 07/27/2019 6:16 Re sults for this W/AUTO DIFF AM CDT procedure are i n the results section. SEDIMENTATION RATE Routine 07/27/2019 6:16 Resul ts for this AM CDT procedure are i n the results section. POC GLUCOSE Routine 07/26/2019 9:21 Results for this PM CDT procedure are i n the results section. POC GLUCOSE Routine 07/26/2019 5:20 Results for this PM CDT procedure are i n the results section. TTE COMPLETE, WO Routine 07/26/2019 3:50 Results for this CONTRAST, W DOPPLER PM CDT procedur e are in ([id number]) the results section. COVID-19 QUALITATIVE Routine 07/26/2019 1:19 Res ults for this PCR PM CDT procedure are i n the results section. POC GLUCOSE Routine 07/26/2019 12:50 Results for this PM CDT procedure are i n the results section. POC GLUCOSE Routine 07/26/2019 8:25 Results for this AM CDT procedure are i n the results section. ESTIMATED GFR Routine 07/26/2019 4:33 Results fo r this AM CDT procedure are i n the results section. BASIC METABOLIC PANEL Routine 07/26/2019 4:33 Re sults for this AM CDT procedure are i n the results section. HC COMPLETE BLD COUNT Routine 07/26/2019 4:33 Re sults for this W/AUTO DIFF AM CDT procedure are i n the results section. POC GLUCOSE Routine 07/25/2019 7:48 Results for this PM CDT procedure are i n the results section. POC GLUCOSE Routine 07/25/2019 5:50 Results for this PM CDT procedure are i n the results section. URINE EOSINOPHILS Routine 07/25/2019 4:10 Result s for this PM CDT procedure are i n the results section. POC GLUCOSE Routine 07/25/2019 12:00 Results for this PM CDT procedure are i n the results section. COVID-19 QUALITATIVE Routine 07/25/2019 12:00 Res ults for this PCR PM CDT procedure are i n the results section. FERRITIN LEVEL Routine 07/25/2019 11:30 Results f or this AM CDT procedure are i n the results section. HEMOGLOBIN A1C Routine 07/25/2019 11:30 Results f or this AM CDT procedure are i n the results section. LIPID PANEL Routine 07/25/2019 11:30 Results for this AM CDT procedure are i n the results section. TOTAL IRON BINDING Routine 07/25/2019 11:30 Resul ts for this CAPACITY AM CDT procedure are i n the results section. TROPONIN Routine 07/25/2019 11:30 Results for this AM CDT procedure are i n the results section. HEPATITIS B CORE Routine 07/25/2019 10:16 Results for this ANTIBODY TOTAL AM CDT procedure are in the results section. HEPATITIS B SURFACE Routine 07/25/2019 10:16 Resu lts for this ANTIBODY AM CDT procedure are i n the results section. HEPATITIS B SURFACE Routine 07/25/2019 10:16 Resu lts for this ANTIGEN AM CDT procedure are i n the results section. HEPATITIS C ANTIBODY Routine 07/25/2019 10:16 Res ults for this AM CDT procedure are i n the results section. XR CHEST 1 VW PORTABLE STAT 07/25/2019 8:08 R esults for this AM CDT procedure are i n the results section. POC GLUCOSE Routine 07/25/2019 7:54 Results for this AM CDT procedure are i n the results section. LIPID PANEL Routine 07/25/2019 6:15 Results for this AM CDT procedure are i n the results section. TROPONIN Routine 07/25/2019 6:15 Results for this AM CDT procedure are i n the results section. HEMOGLOBIN A1C Routine 07/25/2019 6:15 Results f or this AM CDT procedure are i n the results section. RESPIRATORY PATHOGEN Routine 07/25/2019 6:15 Res ults for this PANEL WITH COVID-19 AM CDT procedur e are in the results section. FERRITIN LEVEL Routine 07/25/2019 5:28 Results f or this AM CDT procedure are i n the results section. TOTAL IRON BINDING Routine 07/25/2019 5:28 Resul ts for this CAPACITY AM CDT procedure are i n the results section. URINE CULTURE Routine 07/25/2019 3:01 Results fo r this AM CDT procedure are i n the results section. ECG 12-LEAD STAT 07/25/2019 2:29 Results for this AM CDT procedure are i n the results section. URINALYSIS SCREEN AND Routine 07/25/2019 1:35 Re sults for this MICROSCOPY, WITH REFLEX AM CDT proc edure are in TO CULTURE the results section. TROPONIN Routine 07/25/2019 1:22 Results for this AM CDT procedure are i n the results section. ESTIMATED GFR Routine 07/25/2019 1:22 Results fo r this AM CDT procedure are i n the results section. URIC ACID LEVEL Routine 07/25/2019 1:22 Results for this AM CDT procedure are i n the results section. T4, FREE Routine 07/25/2019 1:22 Results for this AM CDT procedure are i n the results section. THYROID STIMULATING Routine 07/25/2019 1:22 Resu lts for this HORMONE AM CDT procedure are i n the results section. PHOSPHORUS LEVEL Routine 07/25/2019 1:22 Results for this AM CDT procedure are i n the results section. MAGNESIUM LEVEL Routine 07/25/2019 1:22 Results for this AM CDT procedure are i n the results section. COMPREHENSIVE METABOLIC Routine 07/25/2019 1:22 Results for this PANEL AM CDT procedure are i n the results section. HC COMPLETE BLD COUNT Routine 07/25/2019 1:22 Re sults for this W/AUTO DIFF AM CDT procedure are i n the results section. PARTIAL THROMBOPLASTIN Routine 07/25/2019 1:22 R esults for this TIME (PTT) AM CDT procedure are i n the results section. PROTHROMBIN TIME WITH Routine 07/25/2019 1:22 Re sults for this INR AM CDT procedure are i n the results section. after 04/20/2019 Results POC glucose (02/06/2020 12:05 PM MARKETING COMMUNICATION MANAGER)Only the most recent of39 resultswithin the time period is included. Pathologist Sig nature POC glucose 124 (H) 65 - 99 mg/dL [facility] Comment: HOSPITAL Risk And Insurance Consultant Name: Petros Johnson Device ID: [id number] Chartable: [facility] Notified RN Specimen Blood Performing Organization Address City/[facility] Code Phon e Number [facility] DEPARTMENT OF PATHOLOGY AND [address] [place] [phone] GEN[address] [address] XR Abdomen 1 Vw Portable (02/06/2020 7:00 AM MARKETING COMMUNICATION MANAGER)Only the most recent of2 resultswithin the time period is included. Specimen Narrative Performed At EXAMINATION: XR ABDOMEN 1 VW PORTABLE [facility] CLINICAL HISTORY: abd distension eval after new PD catheter placed for peritonitis perforation abscess COMPARISON: Yesterday IMPRESSION: Removal of the old PET scan or with placement of a new PD catheter entering from the left hemiabdomen laterally, with the tip coiled projecting in the pelvis, left of midline. The visuali zed portions of the catheter appears intact. Borderline dilated jejunum, is likely mild ileus. Degenerative change in the hips, moderat e, slightly more on the right. [facility]-[id number] Procedure Note Interface, Radiology Results Incoming - 02/06/2020 8:39 AM MARKETING COMMUNICATION MANAGER EXAMINATION: XR ABDOMEN 1 VW PORTABLE CLINICAL HISTORY: abd distension eval after new PD catheter placed for peritonitis perforation abscess COMPARISON: Yesterday IMPRESSION: Removal of the old PET scan or with plac ement of a new PD catheter entering from the left hemiabdomen laterally, with the tip coiled projecting in the pelvis, left of midline. The visualized portions of the catheter appears intact. Borderline dila kranthi jejunum, is likely mild ileus. Degenerative change in the hips, moderat e, slightly more on the right. [facility]-[id number] Performing Organization Address City/[facility]/ZIP Code Phon e Number [facility] [address] [place] [address] CBC with platelet and differential (02/06/2020 5:00 AM MARKETING COMMUNICATION MANAGER)Only the most recent of10 resultswithin the time period is included. WBC 5.46 4.50 - 11.00 [facility] k/uL HOSPITAL RBC 2.40 (L) 4.40 - 6.00 [facility] m/uL [facility] HGB 7.8 (L) 14.0 - 18.0 [facility] g/dL [facility] HCT 22.8 (L) 41.0 - 51.0 % [facility] MCV 95.0 82.0 - 100.0 [facility] MCH 32.5 27.0 - 34.[address] [facility] MCHC 34.2 31.0 - 37.0 [facility] gdL [facility] RDW - SD 43.6 37.0 - 55.[address] [facility] MPV 10.3 8.8 - 13.[address] [facility] Platelet count 130 (L) 150 - 400 k/uL [facility] Nucleated RBC 0.00 /[address] [facility] Neutrophils 77.1 (H) 39.0 - 69.0 % [facility] Lymphocytes 7.5 (L) 25.0 - 45.0 % [facility] Monocytes 11.0 (H) 0.0 - 10.0 % [facility] Eosinophils 3.5 0.0 - 5.0 % [facility] Basophils 0.5 0.0 - 1.0 % [facility] Immature granulocytes 0.4Comment: 0.0 - 1.0 % [facility] "Immature HOSPITAL granulocytes" (promyelocytes , myelocytes, metamyelocytes ) Specimen Plasma Performing Organization Address City/State/ZIP Code Phon e Number [facility] DEPARTMENT OF PATHOLOGY AND [address] [place] [phone] GENOM[address] MED[address] [address] Estimated GFR (02/06/2020 4:00 AM MARKETING COMMUNICATION MANAGER)Only the most recent of10 resultswithin the time period is included. Pathologist [facility] [place] Estimated GFR 5 (A) mL/min/1.73 [facility] Comment: m2 HOSPITAL Catergory Units Interpretation G1 >=90 Normal or high G2 60-89 Mildly decreased G3a 45-59 Mildly to moderately decreas ed G3b 30-44 Moderately to severely decre ased G4 15-29 Severely decreased G5 <15 Kidney failure The eGFR was calculated using the Chronic Kidney Disea se Epidemiology Collaboration (CKD-EPI) equation. Interpretation is based on recommendations of the National Kidney Foundation-Kidney Disease Outcomes Vj lity Initiative (NKF-KDOQI) published in 2014. Specimen Plasma Performing Organization Address [facility] Phon e Number [facility] DEPARTMENT OF PATHOLOGY AND [address] [place] [address] [address] Vitamin D 1,25 dihydroxy level, serum (02/06/2020 4:00 AM MARKETING COMMUNICATION MANAGER) Vit D, 8.28 (L) 18.00 - [place] 1,25-Dihydroxy Comment: 64.00 pg/mL QU[facility] This test was developed and its performance christo acteristics determined by HOSPITAL the Department of Pathology and Genomic Medicine, [facility]. Serum 1,25 Dihydroxy Vitamin D is tested by LC-MS/MS. It has not been cleared or approved by FDA. The laboratory is reg ulated under CLIA as qualified to perform high-complexity testing. This immanuel t is used for clinical purposes. It should not be regarded as investigational or for research. Specimen Blood Performing Organization Address [facility] Phon e Number [facility] DEPARTMENT OF PATHOLOGY AND [address] [place] [phone] Hepatitis B surface antigen (02/06/2020 4:00 AM MARKETING COMMUNICATION MANAGER)Only the most recent of2 resultswithin the time period is included. Pathologist Sig nature Hepatitis B surface Non-reactive Non-reactive [facility] Specimen Blood Performing Organization Address [facility] Phon e Number [facility] DEPARTMENT OF PATHOLOGY AND [address] [place] [address] [place] [phone] Phosphorus level (02/06/2020 4:00 AM MARKETING COMMUNICATION MANAGER)Only the most recent of6 resultswithin the time period is included. Pathologist Sig nature Phosphorus 4.9 (H) 2.4 - 4.5 mg/dL [facility] L Specimen Plasma Performing Organization Address [facility] Phon e Number [facility] DEPARTMENT OF PATHOLOGY AND [address] [place] [address] [phone] [address] Magnesium level (02/06/2020 4:00 AM MARKETING COMMUNICATION MANAGER)Only the most recent of6 resultswithin the time period is included. Pathologist Sig nature Magnesium 2.2 1.6 - 2.6 mg/dL [facility] L Specimen Plasma Performing Organization Address City/[facility] Phon e Number [facility] DEPARTMENT OF PATHOLOGY AND [address] [place], [place] [phone] [address] [address] Vancomycin level, random (02/06/2020 4:00 AM MARKETING COMMUNICATION MANAGER) Pathologist Sig nature Vancomycin, random 9.6 ug/mL [facility] ITAL Specimen Serum Performing Organization Address [facility] Phon e Number [facility] DEPARTMENT OF PATHOLOGY AND [address] [place] [address] [phone] [address] Comprehensive metabolic panel (02/06/2020 4:00 AM MARKETING COMMUNICATION MANAGER)Only the most recent of5 resultswithin the time period is included. Sodium 137 135 - 148 [facility] mEq/L [facility] Potassium 4.4 3.5 - 5.0 [facility] mEq/L [facility] Chloride 97 (L) 98 - 112 [facility] mEq/L [facility] CO2 23 (L) 24 - 31 mEq/L [facility] Anion gap 17@ANIO (H) 7 - 15 mEq/L [facility] BUN 83 (H) 6 - 20 mg/dL [facility] Creatinine 10.67 (H) 0.70 - 1.20 [facility] mg/dL HOSPITAL Glucose 311 (H) 65 - 99 mg/dL [facility] Calcium 8.3 8.3 - 10.2 [facility] mg/dL [facility] Protein 6.2 (L) 6.3 - 8.3 [facility] Comment: g/dL HOSPITAL - 4.6-7.0 g/dL 1 week 4.4-7.6 g/dL 7 months-1year 5.1-7.3 g/dL 1-2 years 5.6-7.5 g/dL >3 years 6.0-8.0 g/dL 18-150 6.3-8.3 g/dL Albumin 3.0 (L) 3.5 - 5.0 [facility] g/dL HOSPITAL A/G ratio 0.9 0.7 - 3.8 [facility] Alkaline phosphatase 129 40 - 129 U/L [facility] AST 53 (H) 10 - 50 U/L [facility] ALT 91 (H) 5 - 50 U/L [facility] Total bilirubin 0.3 0.0 - 1.2 [facility] mg/dL [facility] Specimen Plasma Performing Organization Address City/[facility] Phon e Number [facility] DEPARTMENT OF PATHOLOGY AND [address] [place] [phone] GENOMIC MED[address]INE [address] [address] Respiratory pathogen panel (02/05/2020 5:40 PM MARKETING COMMUNICATION MANAGER)Only the most recent of2 resultswithin the time period is included. Adenovirus PCR Not Detected [place] Comment: QUAKER Specimen Information HOSPITAL Specimen Source: Nares Specimen Site: Right Coronavirus HKU1 PCR Not Detected [facility] Coronavirus NL63 PCR Not Detected [facility] Coronavirus 229E PCR Not Detected [facility] Coronavirus OC43 PCR Not Detected [facility] Human metapneumovirus Not Detected [facility] Human Not Detected [place] rhinovirus/enterovirus [facility] Influenza A PCR Not Detected [facility] Influenza A/H1 PCR Not Reported [facility] Influenza A/H3 PCR Not Reported [facility] Influenza A/H1-[address] [facility] Influenza B PCR Not Detected [facility] Parainfluenza virus 1 Not Detected [facility] Parainfluenza virus 2 Not Detected [facility] Parainfluenza virus 3 Not Detected [facility] Parainfluenza virus 4 Not Detected [facility] Respiratory syncytial Not Detected [place] virus PCR [facility] Bordetella pertussis Not Detected [facility] Bordetella Not Detected [place] parapertussis PCR [facility] Chlamydia pneumoniae Not Detected [facility] Mycoplasma pneumoniae Not Detected [facility] COVID-19 qualitative Not Detected [place] PCR [facility] Specimen Nares - Right Performing Organization Address City/[facility] Phon e Number [facility] DEPARTMENT OF PATHOLOGY AND [address] [place] [address] [phone] [address] Total iron binding capacity (02/05/2020 5:12 AM MARKETING COMMUNICATION MANAGER)Only the most recent of4 resultswithin the time period is included. Pathologist Sig nature Iron level 33 (L) 59 - 158 ug/dL [facility] Iron binding capacity 200 200 - 400 ug/dL [facility] % Saturation 16.5 (L) 20.0 - 40.0 % [facility] Specimen Plasma Performing Organization Address [facility] Phon e Number [facility] DEPARTMENT OF PATHOLOGY AND [address] [place] [address] [phone] [address] Lactic acid level (02/05/2020 5:12 AM MARKETING COMMUNICATION MANAGER)Only the most recent of3 results within the time period is included. Pathologist Sig nature Lactic acid 1.5 0.5 - 2.2 mmol/L [facility] Specimen Plasma Performing Organization Address [facility] Phon e Number [facility] DEPARTMENT OF PATHOLOGY AND [address] [place] [address] [phone] [address] Folate level (02/05/2020 5:12 AM MARKETING COMMUNICATION MANAGER) Pathologist Sig nature Folate 19.4 4.8 - 24.2 ng/mL [facility] Specimen Serum Performing Organization Address City/[facility] Phon e Number [facility] DEPARTMENT OF PATHOLOGY AND [address] [place] [address] [phone] [address] Ferritin level (02/05/2020 5:12 AM MARKETING COMMUNICATION MANAGER)Only the most recent of3 resultswithin the time period is included. Pathologist Sig nature Ferritin level 884 (H) 30 - 400 ng/mL [facility] Specimen Plasma Performing Organization Address City/[facility] Phon e Number [facility] DEPARTMENT OF PATHOLOGY AND [address] [place] [address] [phone] [address] Vitamin B12 level (02/05/2020 5:12 AM MARKETING COMMUNICATION MANAGER) Vitamin B12 1,019 (H) 211 - 946 [facility] Comment: pg/mL HOSPITAL Significant overlap exists between normal and deficien cy states. However, most patients with deficiencies will have Ser um B12 <200 pg/mL. Specimen Serum Performing Organization Address [facility] Phon e Number [facility] DEPARTMENT OF PATHOLOGY AND [address] [place], [place] [phone] [address] [address] Cell count and differential, body fluid (02/04/2020 11:30 PM MARKETING COMMUNICATION MANAGER) Misc fluid type Peritoneal [facility] Color, fluid Colorless [facility] Appearance, fluid Clear [facility] RBC, fluid SEE COMMENTComment: /CMM [facility] 1+ (0 - 500 HOSPITAL RBC/CMM) Nucleated cells, 34 /CMM [facility] Fluid mononuclear See Diff [facility] Neutrophils, fluid 7 % [facility] Lymphocytes, fluid 10 % [facility] Eosinophils, fluid 5 % [facility] Mesothelial cells, 1 % [facility] Macrophages, fluid 77 % [facility] Specimen Fluid Performing Organization Address City/[facility] Phon e Number [facility] DEPARTMENT OF PATHOLOGY AND [address] [place] [address] [phone] [address] Urine culture (02/04/2020 7:10 PM MARKETING COMMUNICATION MANAGER)Only the most recent of3 resultswithin the time period is included. Pathologist Sig nature Urine culture SEE COMMENTComment: [facility] Bacteriuria screen HOSPITAL negative. Specimen Performing Organization Address City/[facility] Phon e Number [facility] DEPARTMENT OF PATHOLOGY AND [address] [place] [address] [address] Urinalysis screen and microscopy, with reflex to culture (02/04/2020 7:09 PM MARKETING COMMUNICATION MANAGER)Only the most recent of3 resultswithin the time period is included. Pathologist Sig nature Specimen site Clean catch [facility] Color, UA Yellow [facility] Appearance, UA Clear [facility] Specific gravity, 1.013 1.001 - 1.035 [facility] pH, UA 5.0 5.0 - 8.5 [facility] Protein, UA 2+ (A) Negative [facility] Glucose, UA Negative Negative [facility] Ketones, UA Negative Negative [facility] Bilirubin, UA Negative Negative [facility] Blood, UA Small (A) Negative [facility] Nitrite, UA Negative Negative [facility] Urobilinogen, UA <2.[address] <[address]0 [facility] Leukocyte esterase, Negative Negative [facility] WBC, UA 2 (H) 0 - 1 /HPF [facility] RBC, UA 1 0 - 5 /HPF [facility] Bacteria, UA Few None seen [facility] Yeast, UA None seen [facility] Yeast with None seen [facility] pseudohyphae, [facility] Granular casts, UA 5 (H) 0 - 1 /LPF [facility] Specimen Urine Performing Organization Address City/[facility] Phon e Number [facility] DEPARTMENT OF PATHOLOGY AND [address] [place] [address] [phone] [address] Urine drugs of abuse screen (02/04/2020 7:09 PM MARKETING COMMUNICATION MANAGER) Pathologist [facility] [place] Amphetamine screen, Negative [place] urine [facility] Barbiturate screen, Positive (A) [place] urine [facility] Benzodiazepine Negative [place] screen, urine [facility] Cocaine screen, urine Negative [facility] Methadone metabolite Negative [place] (EDDP), urine [facility] Opiates screen, urine Negative [facility] Oxycodone screen, Negative [place] urine [facility] Phencyclidine screen, Negative [place] urine [facility] Tricyclic screen, Negative [place] urine [facility] Cannabinoid screen, Negative [place] urine Comment: QUAKER Drug screen minimum concentration of detectability HOSPITAL Amphetamines 1000 ng/mL Barbiturates 200 ng/mL Benzodiazepines 300 ng/mL Cocaine 300 ng/mL Methadone 300 ng/mL Opiates 300 ng/mL Oxycodone 300 ng/mL Phencyclidine 25 ng/mL Cannabinoids 50 ng/mL Tricyclics 1000 ng/mL Results are from screening tests and should only be used for medical evaluation. Drug testing for legal purposes requires definitive (or confirmatory) testing methods, which are available upon request. Contact the laboratory if definitive testing is requir ed. Specimen Urine Performing Organization Address City/[facility] Phon e Number [facility] DEPARTMENT OF PATHOLOGY AND [address] [place] [phone] GENOMIC MEDICINE [address] [place] [address] Blood culture, aerobic & anaerobic (02/04/2020 5:40 PM MARKETING COMMUNICATION MANAGER)Only the most recent of3 resultswithin the time period is included. Blood culture No growth after 5 days of incubation. CAMILA OSORIO isolate Comment: HOSPITAL Specimen Information Specimen Source: Blood Specimen Site: Hand, left Specimen Blood - Hand, left Performing Organization Address [facility] Phon e Number [facility] DEPARTMENT OF PATHOLOGY AND [address] [place] [address] [place] [phone] ECG 12 lead (02/04/2020 5:28 PM MARKETING COMMUNICATION MANAGER)Only the most recent of3 resultswithin the time period is included. Pathologist Sig nature Ventricular rate 80 [facility] MUSE Atrial rate 80 [facility] M[facility] MO interval 178 [facility] M[facility] QRSD interval 82 [facility] M[facility] QT interval 402 [facility] MUSE QTC interval 463 [facility] M[facility] P axis 1 76 [facility] MUSE QRS axis 1 53 [facility] M[facility] T wave axis 65 [facility] MUSE EKG impression Normal sinus [facility] MUSE rhythm-Normal ECG-In automated comparison with ECG of 28-NOV-2019 23:40,-No significant change was found- Specimen Narrative Performed At This result has an attachment that is no t available. Performing Organization Address [facility] Phon e Number [facility] MUSE [address] [place] [phone] Gram stain only (02/04/2020 5:23 PM MARKETING COMMUNICATION MANAGER) Gram stain result No WBC's or organisms seen ARTURO ACOSTA Comment: HOSPITAL Specimen Information Specimen Source: Peritoneal fluid Specimen Site: Not otherwise specified Specimen Peritoneal fluid - Not otherwise specifi ed Performing Organization Address City/[facility] Phon e Number [facility] DEPARTMENT OF PATHOLOGY AND [address] [place] [address] [phone] [address] Fungus smear (02/04/2020 5:23 PM MARKETING COMMUNICATION MANAGER) Pathologist Sig nature Fungus smear No fungi observed. ARTURO OSORIO Comment: HOSPITAL Specimen Information Specimen Source: Peritoneal fluid Specimen Site: Not otherwise specified Specimen Peritoneal fluid - Not otherwise specifi ed Performing Organization Address [facility] Phon e Number [facility] DEPARTMENT OF PATHOLOGY AND [address] [place] [address] [phone] [address] Fungus culture (02/04/2020 5:23 PM MARKETING COMMUNICATION MANAGER) Fungus culture No growth after 4 weeks of incubation. ARTURO OSORIO isolate Comment: HOSPITAL Specimen Information Specimen Source: Peritoneal fluid Specimen Site: Not otherwise specified Specimen Peritoneal fluid - Not otherwise specifi ed Performing Organization Address [facility] Phon e Number [facility] DEPARTMENT OF PATHOLOGY AND [address] [place] [address] [address] Hemoglobin A1c (02/04/2020 5:20 PM MARKETING COMMUNICATION MANAGER)Only the most recent of3 resultswithin the time period is included. Hemoglobin A1C 7.7 (H) 4.0 - 5.6 % ARTURO OSORIO Comment: HOSPITAL HbA1c cutoffs for diagnosing diabetes: 4.0% - 5.6% = normal 5.7% - 6.4% = increased risk for diabetes (prediabetes )9 >=6.5% = diabetes9 Goals for glycemic control (ADA 2016) < 7.0% Target for non adults with diabetes. More or less stringent targets may be appropriate for individual patients. <7.5% Target for Children and adolescents with type 1 diabetes. Specimen Performing Organization Address [facility] Phon e Number [facility] DEPARTMENT OF PATHOLOGY AND [address] [place] [address] [phone] [address] COVID-19 qualitative PCR (02/04/2020 4:45 PM MARKETING COMMUNICATION MANAGER)Only the most recent of4 resultswithin the time period is included. Interpretation Negative results do not prec lude 2019-nCoV infection and should not be used as the sole basis for treatment or other patient management decisions. Negative results must be combined with clinical observations, patient history, and epidemiological [place]IS information. [facility] COVID-19 qualitative Not-Detected Not-Detecte [facility]IS PCR result d [facility] qualitative See link below for [place] PCR PDF Lab QUAKER ReportComment: Case HOSPITAL Number: [id number] Specimen Nasal swab Performing Organization Address City/[facility] Phon e Number [facility] DEPARTMENT OF PATHOLOGY AND [address] [place] [address] Partial thromboplastin time, activated (02/04/2020 4:45 PM MARKETING COMMUNICATION MANAGER)Only the most recent of2 resultswithin the time period is included. PTT 28.3 23.0 - 36.0 [facility] Comment: [facility] PTT therapeutic range for unfractionated heparin is 61.0-112.0 seconds which corresponds to Anti-Xa 0.3-0.7 U/ml. Specimen Blood Performing Organization Address [facility] Phon e Number [facility] DEPARTMENT OF PATHOLOGY AND [address] [place], [place] [phone] Prothrombin time with INR (02/04/2020 4:45 PM MARKETING COMMUNICATION MANAGER)Only the most recent of2 resultswithin the time period is included. Prothrombin time 15.1 (H) 11.5 - 14.5 [facility] INR 1.2 [place] Comment: QUAKER [facility] International Normalized Ratio (INR) is a [facility] HOSPITAL monitoring tool for patients who are stable on oral anticoagulant therapy. An INR of 2.0-3.0 is suggested for deep vein thrombosis/pulmonary embolism. Specimen Blood Performing Organization Address [facility] Phon e Number [facility] DEPARTMENT OF PATHOLOGY AND [address] [place] [address] Thyroid stimulating hormone (02/04/2020 4:45 PM MARKETING COMMUNICATION MANAGER)Only the most recent of2 resultswithin the time period is included. Pathologist Sig nature TSH 2.80 0.27 - 4.20 uIU/mL [facility] ITAL Specimen Plasma Performing Organization Address City/[facility] Phon e Number [facility] DEPARTMENT OF PATHOLOGY AND [address] [place], [place] [phone] [address] [address] T4, free (02/04/2020 4:45 PM MARKETING COMMUNICATION MANAGER)Only the most recent of2 resultswithin the time period is included. Pathologist Sig nature T4, free 0.8 (L) 0.9 - 1.7 ng/dL [facility] Specimen Plasma Performing Organization Address [facility] Phon e Number [facility] DEPARTMENT OF PATHOLOGY AND [address] [place], [place] [phone] [address] [address] B natriuretic peptide (02/04/2020 4:45 PM MARKETING COMMUNICATION MANAGER) Pathologist Sig [facility] BNP 129 (H) 0 - 100 pg/mL [facility] Specimen Blood Performing Organization Address [facility] Phon e Number [facility] DEPARTMENT OF PATHOLOGY AND [address] [place] [address] Lipase level (02/04/2020 4:45 PM MARKETING COMMUNICATION MANAGER)Only the most recent of2 resultswithin the time period is included. Pathologist Sig [facility] Lipase 12 (L) 13 - 60 U/L [facility] Specimen Plasma Performing Organization Address [facility] Phon e Number [facility] DEPARTMENT OF PATHOLOGY AND [address] [place] [address] [address] Creatine kinase, total (CPK) (02/04/2020 4:45 PM MARKETING COMMUNICATION MANAGER) Pathologist Sig [facility] Creatine kinase 111 39 - 308 U/L [facility] Specimen Plasma Performing Organization Address [facility] Phon e Number [facility] DEPARTMENT OF PATHOLOGY AND [address] [place], [place] [phone] CT Abdomen Pelvis Wo Contrast (11/29/2019 1:00 AM CDT) Specimen Narrative Performed At Examination: CT ABDOMEN PELVIS WO CONT RAST HM [facility] Clinical History: abd pain Comparison: None. Findings: CT scans are performed using radiation dose reduction techniques. Technical factors are evaluated and adjusted to ensu re appropriate moderation of exposure. Automated dose management te chnology is applied to adjust radiation exposure whi le achieving a diagnostic quality image. CT imaging was performed wit h iterative reconstruction techniques and/or automated exposure co ntrol to reduce radiation dose. CT scan of the abdomen and pelvis was performed withou t intravenous contrast. The liver, spleen, pancreas, gallbladder, and adrenal glands are unremarkable. Bilateral atrophic kidneys are noted. No hydronephrosi s or urinary calculus is seen. The appendix is unremarkable. No bowel thickening or f at stranding is seen. No bowel dilatation is seen. Peritoneal dialysis catheter is noted in the pelvis. The visualized lung bases are clear. IMPRESSION: 1. No acute abnormality identified in e abdomen or pelvis. [id number] Procedure Note Hm Interface, Radiology Results Incoming - 11/29/2019 1:08 AM CDT Examination: CT ABDOMEN PELVIS WO CONTRAST Clinical History: abd pain Comparison: None. Findings: CT scans are performed using radiation d ose reduction techniques. Technical factors are evaluated and adjusted to ensure appropriate moderation of exposure. Automated dose management technology is applied to adjust radiation exposure while achie ving a diagnostic quality image. CT imaging was performed with iterative reconstruction techniques and/or automated exposure control to reduce radiation dose. CT scan of the abdomen and pelvis was pe rformed without intravenous contrast. The liver, spleen, pancreas, gallbladder , and adrenal glands are unremarkable. Bilateral atrophic kidneys are noted. No hydronephrosis or urinary calculus is seen. The appendix is unremarkable. No bowel t hickening or fat stranding is seen. No bowel dilatation is seen. Peritoneal dialysis catheter is noted in the pelvis. The visualized lung bases are clear. IMPRESSION: 1. No acute abnormality identified in e abdomen or pelvis. [id number] Performing Organization Address City/State/ZIP Code [facility] [address] [place] [address] Airway (10/11/2019 12:57 PM CDT) Narrative Performed At Mely Teran CRNA 10/11/2019 1: 00 PM Airway Date/Time: 10/11/2019 12:25 PM Performed by: Mely Teran CRNA Authorized by: Estuardo Hodges MD Location: OR Urgency: Elective Resident/CREW PERSON/AA: Mely Teran CRNA Performed by: resident/JEANA/AA Preoxygenated with 100% O2: Yes C-spine Precautions Maintained Throughou t: Yes Mask Ventilation: Assisted mask (#10 O PA) Final Airway Type: Endotracheal airway Final Endotracheal Airway: ETT Cuffed: Yes Technique Used: Video laryngoscopy Intubation device: Glidescope Stylet. Insertion Site: Oral Blade type: Glidescope S-4. Laryngoscope Blade/Videolaryngoscope Curtis de Size: 4 ETT Size (mm): 8.0 Cuff at minimum occlusion pressure: Yes Measured from: Lips ETT to Lips (cm): 23 Placement Verified by: CO2 detection Number of Attempts at Approach: 1 Preoxygenation >3 min Eyes taped at LOC Easy, gentle mask ventilation using #10 OPA DL by Jeffry using Gutierrez 2, Grade 3 v iew obtained DL by Carroll using MAC 3, Grade 2 view obtained, unable to intubate Easy intubation using Glidescope S-4 Dentition unchanged and intact, small la ceration noted to upper lip POC panel 4 (10/11/2019 11:05 AM CDT) POC sodium 140 135 - 148 [facility] mmol/L [facility] POC potassium 3.5 3.5 - 5.0 [facility] mmol/[facility] POC hematocrit 37 (L) 41 - 51 % [facility] POC glucose 155 (H) 65 - 99 mg/dL [facility] Comment: HOSPITAL Risk And Insurance Consultant Name: Nela Hunter Device ID: [id number] Specimen Performing Organization Address [facility] Phon e Number [facility] DEPARTMENT OF PATHOLOGY AND [address] [place] [phone] GENOMIC MEDICINE [address] [address] Basic metabolic panel (07/30/2019 4:48 AM CDT)Only the most recent of5 results within the time period is included. Pathologist Sig nature Sodium 135 135 - 148 mEq/L [facility] Potassium 3.6 3.5 - 5.0 mEq/L [facility] Chloride 95 (L) 98 - 112 mEq/L [facility] CO2 25 24 - 31 mEq/L [facility] Anion gap 15@ANIO 7 - 15 mEq/L [facility] BUN 43 (H) 6 - 20 mg/dL [facility] Creatinine 5.34 (H) 0.70 - 1.20 mg/dL [facility] Glucose 282 (H) 65 - 99 mg/dL [facility] Calcium 8.4 8.3 - 10.2 mg/dL [facility] Specimen Blood Performing Organization Address City/[facility] Phon e Number [facility] DEPARTMENT OF PATHOLOGY AND [address] [place] [phone] [facility] [address] [place] [address] Glucose level (07/28/2019 2:17 PM CDT) Pathologist Sig [facility] Glucose 193 (H) 65 - 99 mg/dL [facility] Specimen Blood Performing Organization Address City/[facility] Phon e Number [facility] DEPARTMENT OF PATHOLOGY AND [address] [place] [phone] [facility] [address] [place] [address] Hemoglobin & hematocrit (07/27/2019 9:20 PM CDT) Pathologist Sig [facility] HGB 8.2 (L) 14.0 - 18.0 g/dL [facility] HCT 24.1 (L) 41.0 - 51.0 % [facility] Specimen Blood Performing Organization Address City/[facility] Phon e Number [facility] DEPARTMENT OF PATHOLOGY AND [address] [place] [phone] [facility] [address] [place] [address] IR Tunneled Dialysis Catheter Placement (07/27/2019 5:21 PM CDT) Specimen Narrative Performed At Performing Radiologist: TERESA Thayer MD Assistants: None. Anesthesia Type: Moderate sedation was administered by the procedure nu rse and monitored intraservice [id number] by the procedure physician f or 11 minutes. Lidocaine 1% and lidocaine 1% with epinephrine were us ed for local anesthetic. Pre Procedure Diagnosis: ESRD Post Procedure Diagnosis: Status post tunneled right internal jugular vein hemod ialysis catheter placement. Procedure: Placement of a tunneled right internal jugular vein he modialysis catheter. Technique: Written informed consent was obtained prior to the pro cedure. All elements of maximal sterile barrier technique were fol lowed. The patient's right neck and upper chest were sterilely pr epared and draped in the routine manner. Lidocaine 1% was used for local anesthetic. Using real-time ultrasound guidance, a 21-gauge micropuncture needle was advanced successfully into th e right internal jugular vein. A 0.018 inch guidewire was advanced cent rally through the needle under fluoroscopy. The needle was removed and a micropuncture sheath system was then armand rina. Under ultrasound guidance, documentation of vessel patency, needle access with permanent recording, and reporting are performed follo wed by placement of a sheath in the right internal jugula r vein. The inner dilator and guidewire were then remove d, and a 0.035 inch stiff Amplatz wire was advanced through the micro puncture sheath and successfully into the inferior vena cava. The [facility] t infraclavicular fossa was anesthetized with lidocaine 1% mixed with epinephrine. A skin incision was made, and a tunneling device was used to pass the tunneled hemodialysis catheter fr om the skin entry site to the venotomy site. Attention was then returned to the venotomy site. The tract was then sequentially dilated, and a 19 cm long tip to cuff tunneled hemodia lysis catheter was then deployed through a peel-away sheath. The catheter tip was placed in the right atrium under fluoroscopic guidance. All port s were tested and demonstrate adequate flow. The catheter was secured to the skin using 2-0 Ethilon sut ure. The small venotomy incision was closed with Dermabond. The patie nt tolerated the procedure well. Fluoroscopy Ka,r = 5 mGy Complications: None. Specimens Removed: None. Estimated Blood Loss: Less than 2 mL. Blood/Blood Products Administered: None. Grafts/Implants: As described in the above report. Impression: Successful fluoroscopic-guided placement of a 19 cm lo ng tip to cuff tunneled hemodialysis catheter via the right internal jugular vein. The catheter tip lies in the right atrium an d is ready for use. [facility]-[id number] Procedure Note [facility], Radiology Results Incoming - 07/27/2019 5:33 PM CDT Performing Radiologist: Kodak Thayer MD Assistants: None. Anesthesia Type: Moderate sedation was administered by e procedure nurse and monitored intraservice [id number] by the procedure physician for 11 minutes. Lidocaine 1% and lidocaine 1% with epinephrine were used for local anesthetic. Pre Procedure Diagnosis: ESRD Post Procedure Diagnosis: Status post tunneled right internal jugu lar vein hemodialysis catheter placement. Procedure: Placement of a tunneled right internal j ugular vein hemodialysis catheter. Technique: Written informed consent was obtained pr ior to the procedure. All elements of maximal sterile barrier technique were followed. The patient's right neck and upper chest were sterilely prepared and draped in the routine manner. Lidocaine 1% was used for local anesthetic. Using real-time ultras ound guidance, a 21-gauge micropuncture needle was advanced successfully into the right internal jugular vein. A 0.018 inch guidewire was advanced centrally through the needle under fluoroscopy. The needle was removed and a micropuncture sheath syste m was then placed. Under ultrasound guidance, documentation of vessel patency, needle access with permanent recording, and reporting are performed followed by placement of a sheath in the right internal jugular vein. The inner dilator and guidewire we re then removed, and a 0.035 inch stiff Amplatz wire was advanced through the micropuncture sheath and successfully into the inferior vena cava. The right infraclavicular fossa was anesthetized with lidocaine 1% mixed with epinephrine. A skin incision was made, and a tunneling device was used to pass the tunneled hemodialysis catheter from the skin entry site to the venotomy site. Attention was then returned to the venotomy site. The tract was then sequentially dilated, and a 19 cm long tip to cuff tu nneled hemodialysis catheter was then deployed through a peel-away sheath. The catheter tip was placed in the right atrium under fluoroscopic guidance. All ports were tested and demonstrate adequate flow. The catheter was secured to the skin using 2 -0 Ethilon suture. The small venotomy incision was closed with Dermabond. The patient tolerated the procedure well. Fluoroscopy Ka,r = 5 mGy Complications: None. Specimens Removed: None. Estimated Blood Loss: Less than 2 mL. Blood/Blood Products Administered: None. Grafts/Implants: As described in the above report. Impression: Successful fluoroscopic-guided placement of a 19 cm long tip to cuff tunneled hemodialysis catheter via the right internal jugular vein. The catheter tip lies in the right atrium and is ready for use. [facility]-[id number] Performing Organization Address City/[facility] Phon e Number [facility] [address] [place] [address] Sedimentation rate (07/27/2019 6:16 AM CDT) Pathologist Sig nature Sedimentation rate 91 (H) 0 - 10 mm/hr [facility] Specimen Blood Performing Organization Address [facility] Phon e Number [facility] DEPARTMENT OF PATHOLOGY AND [address] [place] [phone] GENOMIC MEDICINE [address] [address] Transthoracic Echocardiogram Complete, (w Contrast, Strain and 3D if needed) (07/26/2019 3:50 PM CDT) Specimen Narrative Performed At [facility] Echo cardiography Report [address] [facility] [address], [place] [address] Pat.Name: CLARA CAMACHO Pat.ID: [id number] .Date: 07/26/2019 Refer.MD: KELLEE BRUNER Exam Time: 2:52:00 PM Study Type:R outine Echo Height: 72in Weight: 266lb BSA: 2.41 m2 Ag e: 1960,58Y Sex: MALE BP: 152/68 HR: 75 bpm Sonogr phr: SUDHAKAR Cheney Pat. Stat.:Inpatient Room: [facility] Study Status:Final Echo Event ID:[id number] Order ID: [id number] Reason for Study:HF; initial eval with rashel us History / Clinical:Chronic Renal Failure , Coronary Artery Disease, Diabetes, Hypertension Procedures: 2D Echo, Colorflow Doppler, Portable SUMMARY: LV EF is normal. RV systolic function is normal. LV filling pressure is normal. Hepatic vein pressure is likely mildly e levated FINDINGS: LV: LV size is normal. There is mild concentric LV hypertrophy. LV EF is normal. Overall wall motion is normal. RV: RV size is normal. RV systo lic function is normal. LA: LA size is normal. RA: RA size is normal. AO: Aortic root diameter is nor mal. STEPHANIE: Trace posterior pericardial effusion. AV: No structural AV abnormalit ies noted. MV: No structural MV abnormalit ies noted. PV: No structural PV abnormalit ies noted. TV: No structural TV abnormalit ies noted. Reynolds: LV relaxation is reduced, ap propriate for age. LV filling pressure is normal. Hepatic vein pressu re is likely mildly elevated Other: Insufficient TR jet to estim ate PA systolic pressure. MEASUREMENTS: 2D Parasternal [place] Ao An 2.1 cm LVPWd 1.5 cm Ao Rtd 3.4 cm Index 1.4 cm/m2 LA Ds 4.1 cm IVSd 1.4 cm RWT 0.58 LVIDd 5.1 cm Index 2.1 cm/m2 LV Mass 310 g (122-1 74) LVIDs 2.8 cm LVM In dex 129 g/m LV%fs 45 % LVOT 1.9 cm LA Sng Plane LA Area 20 cm (8.8-23.4) LA Vol 53 ml Index 22 ml/m2 LA LngAx 6.5 cm RA Sng Plane RA Vol 44 ml Index 18 ml/m2 RA LngAx 5.8 cm RA Area 17 cm (8.3-1 9.5) LVOT LVOT Area 2.9 cm Signed 07/26/2019 04:06 PM Lisy Kang M.D. Procedure Note Interface, Radiology Results In - 2019 4:06 PM CDT Echocardiography Report [address] [place] [address] Pat.Name: CLARA CAMACHO PatMariluI D: [id number] .Date: 07/26/2019 Refer .: KELLEE BRUNER Exam Time: 2:52:00 PM Study Type:Routine Echo Height: 72in Weigh t: 266lb BSA: 2.41 m2 Age: 10 1960,58Y Sex: MALE BP: 152/68 HR: 75 bpm Sonog rphr: SUDHAKAR Cheney Pat. Stat.:Inpatient Room: [facility] Study Status:Final Echo Event ID:[id number] Order ID: [id number] Reason for Study:HF; initial eval with rashel us History / Clinical:Chronic Renal Failure , Coronary Artery Disease, Diabetes, Hypertension Procedures: 2D Echo, Colorflow Doppler, Portable SUMMARY: LV EF is normal. RV systolic function is normal. LV filling pressure is normal. Hepatic vein pressure is likely mildly e levated FINDINGS: LV: LV size is normal. There is mi ld concentric LV hypertrophy. LV EF is normal. Overall wall motion is normal. RV: RV size is normal. RV systolic function is normal. LA: LA size is normal. RA: RA size is normal. AO: Aortic root diameter is normal . STEPHANIE: Trace posterior pericardial ef fusion. AV: No structural AV abnormalities noted. MV: No structural MV abnormalities noted. PV: No structural PV abnormalities noted. TV: No structural TV abnormalities noted. Reynolds: LV relaxation is reduced, appr opriate for age. LV filling pressure is normal. Hepatic ve in pressure is likely mildly elevated Other: Insufficient TR jet to estimat e PA systolic pressure. MEASUREMENTS: 2D Parasternal [place] Ao An 2.1 cm LVPW d 1.5 cm Ao Rtd 3.4 cm Inde x 1.4 cm/m2 LA Ds 4.1 cm IVSd 1.4 cm RWT 0.58 LVIDd 5.1 cm Inde x 2.1 cm/m2 LV Mass 310 g (122-174) LVIDs 2.8 cm LVM Index 129 g/m LV%fs 45 % LVOT 1.9 cm LA Sng Plane LA Area 20 cm (8.8-23.4) L A Vol 53 ml Index 22 ml/m2 LA LngAx 6.5 cm RA Sng Plane RA Vol 44 ml Inde x 18 ml/m2 RA LngAx 5.8 cm RA Area 17 cm (8.3-19.5) LVOT LVOT Area 2.9 cm Signed 07/26/2019 04:06 PM Lisy Kang M.D. Performing Organization Address City/State/ZIP Code Phon e Number [facility] [id number] [place] [address] Urine eosinophils (07/25/2019 4:10 PM CDT) Pathologist Sig nature Eosinophils, urine PRESENT (A) [facility] Specimen Urine Performing Organization Address City/[facility] Phon e Number [facility] DEPARTMENT OF PATHOLOGY AND [address] [place], [place] [address] [facility] [address] [place] [address] Troponin (07/25/2019 11:30 AM CDT)Only the most recent of3 resultswithin the time period is included. Troponin 0.038 0.000 - 0.040 [facility] Comment: ng/mL HOSPITAL In patients suspected of having a myocardial infarctio n, along with all other appropriate clinical measures and actions includ ing ECG and other diagnostics as appropriate, measure Ultra TnI at 0 hrs and at 3 hrs. Myocardial infarction VERY LIKELY The 0 hr TnI level is > 0.10 ng/mL Myocardial infarction LIKELY The 0 hr TnI level is > 0.04 ng/mL and 3 hr level is i ncreased or decreased by at least 0.020 ng/mL Myocardial infarction VERY UNLIKELY Both the 0 hr and 3 hr TnI levels <= 0.04 ng/mL(within normal limits) OR 0 hr is > 0.04 ng/mL and 3 hr is increased OR decreased by less than 0.020 ng/mL Specimen Blood Performing Organization Address City/[facility] Phon e Number [facility] DEPARTMENT OF PATHOLOGY AND [address] [place] [address] [phone] [address] Lipid panel (07/25/2019 11:30 AM CDT)Only the most recent of2 resultswithin the time period is included. Cholesterol 111 <200 mg/dL [facility] Triglycerides 103 <150 mg/dL [facility] HDL cholesterol 42 >40 mg/dL [facility] LDL cholesterol 51Comment: Result <100 mg/dL [place] obtained by direct QUAKER LDL measurement [facility] Lipid panel [facility] interpretation Comment: QUAKER Total Cholesterol (mg/dL) HOSPIT [place] <200 Desirable 200-239 Borderline-high >=240 High Triglycerides (mg/dL) <150 Normal 150-199 Borderline-high 200-499 High >=500 Very high HDL Cholesterol (mg/dL) <40 Low (male) <40 Low (female) LDL Cholesterol (mg/dL) <100 Optimal 100-129 Near or above optimal 130-159 Borderline-high 160-189 High >=190 Very high Risk Catergories that modify LDL goals. Risk Catergories LDL goal (mg/d L) CHD and CHD risk equivalent <100 (10-year risk >20%) Multiple (2+) risk factors <130 (10-year risk =<20%) 0-1 risk factors <160 (<10-year risk) Defining levels of lipids in metabolic syndrome Triglycerides >=150 mg/dL HDL Cholesterol Men <40 mg /dL Women <40 mg/ dL Non-HDL cholesterol is a second target for therapy in persons with high triglycerides (>=200 mg/dL) Specimen Blood Performing Organization Address City/[facility] Phon e Number [facility] DEPARTMENT OF PATHOLOGY AND [address] [place] [address] [phone] [address] Hepatitis C antibody (07/25/2019 10:16 AM CDT) Pathologist Sig nature Hepatitis C Ab Non-reactive Non-reactive [facility] Specimen Blood Performing Organization Address City/[facility] Phon e Number [facility] DEPARTMENT OF PATHOLOGY AND [address] [place] [address] [address] Hepatitis B core antibody total (07/25/2019 10:16 AM CDT) Pathologist Sig nature Hepatitis B core Non-reactive Non-reactive [facility] Specimen Blood Performing Organization Address City/[facility] Phon e Number [facility] DEPARTMENT OF PATHOLOGY AND [address] [place] [address] [address] Hepatitis B surface antibody (07/25/2019 10:16 AM CDT) Pathologist Sig nature Hepatitis B surface Non-reactive Non-reactive [facility] Specimen Blood Performing Organization Address [facility] Phon e Number [facility] DEPARTMENT OF PATHOLOGY AND [address] [place] [phone] XR Chest 1 Vw Portable (07/25/2019 8:08 AM CDT) Specimen Narrative Performed At EXAMINATION: XR CHEST 1 VW PORTABLE [facility] CLINICAL HISTORY: sob COMPARISON: None. IMPRESSION: 1.Hazy opacities in the lung bases, most likely due to hypoinflation of the lungs/atelectasis. Cannot rule out superimposed in filtrate in the left lung base/retrocardiac region and if clinically i ndicated dedicated PA and lateral views could provide further assessment. 2.Mediastinal contours and cardiac silho uette are unremarkable. 3.No acute osseous abnormality. [id number] Procedure Note Interface, Radiology Results Incoming - 07/25/2019 8:13 AM CDT EXAMINATION: XR CHEST 1 VW PORTABLE CLINICAL HISTORY: sob COMPARISON: None. IMPRESSION: 1.Hazy opacities in the lung bases, most likely due to hypoinflation of the lungs/atelectasis. Cannot rule out superimposed infiltrate in the left lung base/retrocardiac region and if clinically indicated dedicated PA and lateral views could provide further assessment. 2.Mediastinal contours and cardiac silho uette are unremarkable. 3.No acute osseous abnormality. [id number] Performing Organization Address City/State/ZIP Code Phon e Number [facility] [address] [place] [address] Uric acid level (07/25/2019 1:22 AM CDT) Pathologist Sig nature Uric acid 10.0 (H) 3.4 - 7.0 mg/dL [facility] L Specimen Blood Performing Organization Address City/[facility]/ZIP Code Phon e Number [facility] DEPARTMENT OF PATHOLOGY AND [address] [place], [place] [address] [facility] [address] [place] [address] after 04/20/2019 (Home) [place] [address] Advance Directives For more information, please contact: [phone] Type Date Recorded Patient Panel Cutter Explanati on Advance Directives, Living Will 10/11/2019 7:06 AM and Medical Power of Regional Property Manager Code Status Date Activated Date Inactivated Comments Full Code 02/10/2019 8:06 AM 02/16/2019 10:25 PM Code Status decision reached by: Patient
--- OUTSIDE RECORDS SUMMARY | 2020-04-20 08:47 | XMS REPORT | Continuity of Care Document ---
:1960 Author Organization [employer] Care Team Providers Name Role Phone [employer] Unavailable Un available Problems Problem Status Onset Classification Date Comments Sourc e Date Reported Depressive disorder Problem 05/10/2016 [facility]disorder) [facility] Diabetes mellitus Problem 05/10/2016 S urgical (disorder) [facility] Gastroesophageal Problem 05/10/2016 [place] rgical reflux disease Speci alty (disorder) [facility] Hypertensive Problem 05/10/2016 Surgic al disorder, systemic S pecialty arterial (disorder) [facility] Medications Medication Details Route Status Patient Ordering Order Source Instructions Provider Date Misc 105 mL, Inactive [facility] Surgical Medication Soln-IV, IV, 017 Specialt y Once, first [facility] dose [facility] 05/08/16 8:17:00 ELECTRICAL WIRER, stop date 05/08/16 8:17:00 ELECTRICAL WIRER propofol 60 mg = 6 Inactive [facility] Surgical mL, 017 Specialty Emulsion, Hospital of IV, Once, [facility] first dose 05/08/16 8:11:00 ELECTRICAL WIRER, stop date 05/08/16 8:11:00 ELECTRICAL WIRER propofol 80 mg = 8 Inactive [facility]an Surgical mL, 017 Specialty Emulsion, Hospital of IV, Once, [facility] first dose 05/08/16 8:06:00 ELECTRICAL WIRER, stop date 05/08/16 8:06:00 ELECTRICAL WIRER lidocaine 2 mL, Inactive [facility]an Surgical Injection, 017 Specialty IV, Once, Hospital of first dose [facility] 05/08/16 8:01:00 ELECTRICAL WIRER, stop date 05/08/16 8:01:00 ELECTRICAL WIRER propofol 160 mg = 16 Inactive Quan Surgical mL, 017 Specialty Emulsion, Hospital of IV, Once, [facility] first dose 05/08/16 8:01:00 ELECTRICAL WIRER, stop date 05/08/16 8:01:00 ELECTRICAL WIRER LR 1,000 mL 1,000 mL, Kp Schwartz MD Surgic al IV, 30 017 Specialty mL/hr, start Hospital of date [facility] 05/08/16 7:24:00 ELECTRICAL WIRER Lidocaine 2% 0.2 mL, Inactive Efren LEONARD Surgica l 0.2 mL IV Injection, 017 Specialty Start Subcutaneous Hospital [[facility]] , Once PRN Sugar Carmine d for other (see comment), first dose 05/08/16 7:24:00 ELECTRICAL WIRER Patient's Own See Active Surgical Med Insulin Instructions 017 Special ty , INSULIN [facility] PUMP, 0 [facility] Refill(s)INS ULIN PUMP hydroCHLOROthi 1 tabs, Active Surgical azide-losartan Oral, Daily, 017 Spec ialty 25 mg-100 mg 0 Refill(s), Hospit al of oral tablet HTN [facility] furosemide 20 20 mg = 1 Active Surgical mg oral tablet tabs, Oral, 017 Speci alty Daily, 0 Hospital of Refill(s), [facility] HTN FLUoxetine 10 10 mg = 1 Active Surgical mg oral tablet tabs, Oral, 017 Speci alty Daily, 0 Hospital of Refill(s), [facility] DEPRESSIVE carvedilol 25 25 mg = 1 Active Surgical mg oral tablet tabs, Oral, 017 Speci alty BID, 0 Hospital of Refill(s), [facility] HTN atorvastatin 40 mg = 1 Active Surgical 40 mg oral tabs, Oral, 017 Specialty tablet Daily, 0 Hospital of Refill(s), [facility] HIGH CHOL amLODIPine 5 5 mg = 1 Active Surgical mg oral tablet tabs, Oral, 017 Speci alty Daily, 0 Hospital of Refill(s), [facility] HTN Allergies, Adverse Reactions, Alerts Substance Category Reaction Severity Reaction Status Date Comments S ource type Reported penicillin drug Allergy Surgi sonja allergy Specialt y [facility] Immunizations No Data Provided for This Section Results Order Name Results Value Reference Date Interpretation Comments Sydni rce Range LABORATORY Blood 316 74 - 106 05/08/ [place] Surgical Glucose, 2017 Specialty Capillary [facility] LABORATORY Blood 305 74 - 106 05/08/ [place] Surgical Glucose, 2017 Specialty Capillary [facility] Pathology Reports No Data Provided for This Section Diagnostic Reports No Data Provided for This Section Consultation Notes No Data Provided for This Section Discharge Summaries No Data Provided for This Section History and Physicals No Data Provided for This Section Vital Signs Vital Sign Value Date Comments Source Systolic (mm Hg) 167/70 05/08/2016 Surgical [facility] [place] Peripheral Pulse Rate 62 05/08/2016 [facility] Systolic (mm Hg) 149 05/08/2016 Surgical [facility] ar [facility] Diastolic (mm Hg) 65 05/08/2016 Surgical S pecialty [facility] [place] Respitory Rate 12 05/08/[address] [facility] ar [facility] Heart Rate 65 05/08/2016 Surgical [facility] [place] Respitory Rate 14 05/08/2016 Surgical [facility] ar [facility] Systolic (mm Hg) 151/56 05/08/2016 Surgical [facility] ar [facility] Heart Rate 64 05/08/2016 Surgical [facility] [place] Respitory Rate 16 05/08/2016 Surgical [facility] Temperature Oral (F) 36.7 [place] [facility] Heart Rate 69 05/08/2016 Surgical [facility] [place] Weight 117.9 05/08/2016 Surgical [facility] [place] Weight 34.82 05/08/2016 Surgical [facility] [place] Height 184 cm 05/08/2016 Surgical [facility] [place] Peripheral Pulse Rate 66 [facility] Temperature Oral (F) 37 [place] 05/08/2016 [facility] [place] Weight 117.9 05/04/2016 Surgical [facility] [place] Weight 35.28 05/04/2016 Surgical [facility] Height 182.8 cm 05/04/2016 [facility] Encounters Location Location Encounter Encounter Reason Attending ADM DC Stat us Source Details Type Number For Provider Date Date Visit [facility] Outpatient [id number] [place] 05/08 05/08 Active Surgi sonja [place] Specialty [facility] Procedures Procedure Code Date Perfomer Comments Source COLONOSCOPY 05/08/2016 [place] 1auto-populated Surgical FLEXIBLE; from documented Specialty DIAGNOSTIC; INCL. surgical case [facility] SPECIMENS 179[address] (Other)<sup>1</[place]erman p> Colonoscopy [id number] [facility] Assessment and Plan No Data Provided for This Section Plan of Care No Data Provided for This Section Social History No Data Provided for This Section Family History No Data Provided for This Section Advance Directives No Data Provided for This Section Functional Status No Data Provided for This Section
--- OUTSIDE RECORDS SUMMARY | 2020-04-20 08:50 | XMS REPORT | Encounter Summary ---
:1960 Author Care Team Providers Name Role Phone Dr. Estuardo Goddard Primary Care Provider [phone] Balta Degroot MD Primary Care Provider [phone] Reason for Visit diabetes Instructions 1. Type 1 diabetes mellitus with out complication glucose, fingerstick, bloo d hemoglobin A1C, fingerstic k Minimed Infusion Set Paradigm Kinsman 3 mL Guardian Sensor 3 device Humalog U-100 Insulin 100 unit/mL subcutaneous solution Contour Next Test Strips microalbumin/creatinine, m ass ratio, urine lipid panel, serum CMP, serum or plasma CBC w/ auto diff TSH, serum or plasma T4, free, serum 2. End-stage renal disease 3. Hyperlipidemia high cholesterol: care ins tructions 4. Obesity 5. Essential hypertension 6. Type 1 diabetes mellitus Discussion Note: None recorded. Plan of Care Reminders Provider Appointments Diabetic María Mackay 05/27/2020 MD Rupesh 3:15PM Lab Glucose, Vm_hou_s hadow Fingerstick, Blood 04/15/2020 [place] Hemoglobin Vm_hou _shadow a1C, Fingerstick 04/15/2020 [place] [facility] ical - Microalbumin/creatinine, 04/15/2020 Laborat ory Mass Ratio, Urine Lipid Panel, [facility] - Serum 04/15/2020 Laboratory CMP, Serum or [facility] - Plasma 04/15/2020 Laboratory CBC W/ Auto [facility] - Diff 04/15/2020 Laboratory TSH, Serum or [facility] - Plasma 04/15/2020 Laboratory T4, Free, [facility] - Serum 04/15/2020 Laboratory Referral None recorded. Procedures None recorded. Surgeries None recorded. Imaging None recorded. Medications Name Start Date albuterol sulfate 2.5 mg/3 mL (0.083 %) solution for nebulization alprazolam 0.5 mg tablet atorvastatin 40 mg tablet Take 1 tablet every day by oral route at bedtime for 90 days. azithromycin 250 mg tablet dgbbdtfnnw-colopwfzrsmvh-bsfyevam 50 mg-325 mg-40 mg c apsule Take 1 capsule every day by oral route as needed for 7 days. carvedilol 12.5 mg tablet Take 2 tablets every day by oral route as directed. Contour Next Test Strips Take 5 strips every day by miscell. route as directed for 90 days. Dialyvite 800 1 qd DOK 100 mg capsule TK ONE C PO BID FOR 30 DAYS doxazosin 8 mg tablet Take 0.5 tablets twice a day by oral route as directe d for 90 days. doxycycline hyclate 100 mg capsule famotidine 20 mg tablet Take 2 tablets every day by oral route as directed. furosemide 80 mg tablet TAKE 1 TABLET BY MOUTH TWICE DAILY gentamicin 0.1 % topical cream APPLY TO EXIT SITE D Humalog U-100 Insulin 100 unit/mL subcutaneous solutio n USE WITH INSULIN PUMP TOTAL DAILY DOSE 100 ketorolac 0.5 % eye drops Instill 1 drop 3 times a day by ophthalmic route as d irected for 15 days. losartan 100 mg tablet TAKE 1 TABLET BY MOUTH ONCE DAILY minimed guardian sensor 3 [facility] 04/15/2020 Minimed Infusion Set USE WITH INSULIN PUMP DIRECTED . CHANGE EVERY 2 DAYS nifedipine ER 30 mg tablet,extended release Take 2 tablets every day by oral route as directed. nifedipine ER 30 mg tablet,extended release 24 hr TAKE 1 TABLET BY MOUTH TWICE DAILY ondansetron HCl 4 mg tablet TK 1 T PO Q 6 H PRN Paradigm Kinsman 3 mL USE WITH MEDTRONIC INSULIN PUMP, CHANGE EVERY 2 DAYS promethazine 25 mg tablet TAKE 1 TABLET BY MOUTH EVERY 6 HOURS NEEDED Senokot-S 1 qd sevelamer carbonate 800 mg tablet Take 1 tablet as needed by oral route as directed. SIMPLECHOICE quick Q-23-5 infusion set Take 45 sets every 3 months by miscell. route as dire cted. Medications Administered None recorded. Vitals Height Weight BMI Blood Pressure 6 ft 268.6 lbs 36.4 kg/m2 125/65 mm[Hg] Results Lab Results Date Name Specimen Result Interpretation Description Value Range Status Address Hemoglobin a1C, Hemoglobin a1C 7.0 Vm_hou_shadow Fingerstick Fingerstick: [place]: [address], [place] Glucose, Blood Glucose: 250 Vm_hou_shadow Fingerstick, mg/dl [place]: [id number], [place] Allergies Code Code System Name Reaction Severity Status Onset Penicillin Active Penicillins Active Problems Name Status Onset Date Source Chronic Kidney Disease Active 04/26/2017 Hyperlipidemia Active 07/26/2017 Clinical Finding Active 05/10/2018 History Depressive Disorder Active 08/11/2018 Obesity Active 02/27/2019 Retinal Disorder Active 02/27/2019 General Finding of Observation of Patient Active 2018 History Type 1 Diabetes Mellitus Active 08/03/2019 Essential Hypertension Active 08/03/2019 Hypertensive Disorder Active 08/03/2019 History End-stage Renal Disease Active 08/03/2019 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 [phone] Essential Hypertension; Type [phone] 1 Diabetes Mellitus History of Present Illness Diabetes F/U Reported By: Patient HPI: Labs: last A1C result: 7.0%. Context: seeing eye doctor regularly. Associated Symptoms: no weig ht loss, no dizziness, no increased thirst, no increased urination, no b lurred vision, no numbness of feet, weight gain (10 lbs) Notes: <div>
</div><div>Diabetes Education:</div><div>-discussed with pt about his new insulin pump t hat he started 5 days ago. his previous 670g pump was having problems so they sent him a new one. </div><div>-pt states that since starting n ewer pump, his bg readings have been significantly higher.</div>< div>-checked both pumps to verify settings were put in properly. the ba madalyn rate gives about 22 units/day, .95 u/hr. his carb ratio is 4.2 u/hr a nd sensitivity factor 30. bg target 120 and insulin time 3.0. he uses au to mode.</div><div>-settings were the same as old pump. discussed humal og vials, infusion sets, infections.</div><div>-pt states that his kidneys are not as clean as they should be and maybe thi s is the reason for higher bg. he will see how it goes for the next few days and increase basal rates as needed.</div><div>-
</div ><div>30 minutes of Diabetes Education performed today
</div><di v>-</div> Note: The patient is here for follow up of DM1. He was hospitalized for possible blood infection 2 months ago and he was treated with antibiotics and discharged. Review of Systems Comprehensive General Adult ROS Reported By: Patient Constitutional: Constitutional: no fever, no night sweats Eyes: Eyes: no dry eyes, no vision change ENMT: Ears: no difficulty hearing, no ear pain. Mouth/Throat: no sore throat Cardiovascular: Cardiovascular: no chest bossman n, no shortness of breath when walking, no palpitations Respiratory: Respiratory: no cough, no wh eezing, no shortness of breath Gastrointestinal: Gastrointestinal: no abdomin al pain, no nausea, no vomiting, no constipation, no diarrhea Musculoskeletal: Musculoskeletal: no muscle a ches, no muscle weakness, no arthralgias/joint pain, no b ack pain, no swelling in the extremities Integumentary: Skin: no rashes Neurologic: Neurologic: no weakness, no dizziness, no headaches Psychiatric: Psych: no depression, no sle ep disturbances, no anxiety Endocrine: Endocrine: no fatigue Allergic/Immunologic: Allergy/Immunologic: no itch ing Physical Exam General Adult Exam (male) Reported By: Patient Constitutional: General Appearance: healthy- appearing, well-nourished, well-developed. Level of Dis tress: NAD Psychiatric: Mental Status: active and al ert Head: Head: normocephalic, atrauma tic Eyes: Pupils: PERRLA. Corneas: yvan ssly intact ENMT: Oropharynx: moist mucous mem branes Lungs: Auscultation: breath sounds normal, good air movement, no wheezing, no rales/crackles Cardiovascular: Heart Auscultation: RRR, nor mal S1, normal S2, murmur; 1/6 Murmur Abdomen: Bowel Sounds: normal. Inspec tion and Palpation: soft, no tenderness, no masses Musculoskeletal:: Motor Strength and Tone: nor mal. Joints, Bones, and Muscles: normal movement of all extremities. Extremities: no cyanosis, edema; Trace edema (B) Neurologic: Gait and Station: normal gai t Skin: Inspection and palpation: no rash, no lesions
--- OUTSIDE RECORDS SUMMARY | 2020-04-20 08:50 | XMS REPORT | Encounter Summary ---
:1960 Author Care Team Providers Name Role Phone Dr. Estuardo Goddard Primary Care Provider [phone] Balta Degroot MD Primary Care Provider [phone] Reason for Visit diabetes Instructions 1. Type 1 diabetes mellitus with out complication glucose, fingerstick, bloo d hemoglobin A1C, fingerstic k Minimed Infusion Set [facility] [place] 3 mL Guardian Sensor 3 device Humalog U-100 Insulin 100 unit/mL subcutaneous solution Contour Next Test Strips microalbumin/creatinine, m ass ratio, urine lipid panel, serum CMP, serum or plasma CBC w/ auto diff TSH, serum or plasma T4, free, serum 2. End-stage renal disease 3. Hyperlipidemia high cholesterol: care ins tructions 4. Obesity 5. Essential hypertension Discussion Note: None recorded. Plan of Care Reminders Provider Appointments Diabetic María Mackay 05/27/2020 MD Rupesh 3:15PM Lab Glucose, Vm_hou_s hadow Fingerstick, Blood 04/15/2020 [facility] Hemoglobin Vm_hou _shadow a1C, Fingerstick 04/15/2020 [place] [facility] ical - Microalbumin/creatinine, 04/15/2020 Laborat ory Mass Ratio, Urine Lipid Panel, [facility] - Serum 04/15/2020 Laboratory CMP, Serum or [facility] - Plasma 04/15/2020 Laboratory CBC W/ Auto [facility] - Diff 04/15/2020 Laboratory TSH, Serum or [facility] - Plasma 04/15/2020 Laboratory T4, Free, [facility] - Serum 04/15/2020 Laboratory Referral None recorded. Procedures None recorded. Surgeries None recorded. Imaging None recorded. Medications Name Start Date albuterol sulfate 2.5 mg/3 mL (0.083 %) solution for nebulization alprazolam 0.5 mg tablet atorvastatin 40 mg tablet Take 1 tablet every day by oral route at bedtime for 90 days. azithromycin 250 mg tablet mzkccyhxsw-bhyhbfmbcnpzu-vwlkrpsg 50 mg-325 mg-40 mg c apsule Take [...] MOUTH ONCE DAILY minimed guardian sensor 3 mis 04/15/2020 Minimed Infusion Set USE WITH INSULIN PUMP DIRECTED . CHANGE EVERY 2 DAYS nifedipine ER 30 mg tablet,extended release Take 2 tablets every day by oral route as directed. nifedipine ER 30 mg tablet,extended release 24 hr TAKE 1 TABLET BY MOUTH TWICE DAILY ondansetron HCl 4 mg tablet TK 1 T PO Q 6 H PRN [facility] 3 mL USE WITH MEDTRONIC INSULIN PUMP, [...] a1C, Hemoglobin a1C 7.0 Vm_hou_shadow Fingerstick Fingerstick: [place]: [address], [place] Glucose, Blood Glucose: 250 Vm_hou_shadow Fingerstick, mg/dl [place] k: [id number], [place] Allergies Code Code System Name Reaction Severity Status Onset Penicillin Active Penicillins Active Problems Name Status Onset Date Source Chronic Kidney Disease Active 04/26/2017 Hyperlipidemia Active 07/26/2017 Clinical Finding Active 05/10/2018 History Type 1 Diabetes Mellitus without Active 05/30/2018 Complication Depressive Disorder Active 08/11/2018 Obesity Active 02/27/2019 [...] Diabetes Mellitus Estuardo lamas MD: without Complication; End-stage [address], Renal Disease; Hyperlipidemia; [address] , [place], [place] Obesity; Essential Hypertension [phone], Ph. History of Present Illness Diabetes F/U Reported [...]
--- OUTSIDE RECORDS SUMMARY | 2020-04-20 08:50 | XMS REPORT | Summary of Care ---
:1960 Author Organization [facility] Address [address] [place] [address] Care Team Providers Name Role Phone Balta Degroot MD Primary Care Provider [phone] Tuan Degroot MD Unavailable Reason for Visit Reason Comments Ear Pain stas Encounter Details Date Type Department Care Team Description 01/27/2020 Urgent Care [facility] Ashley Vega, DIRECTOR OF GLOBAL TALENT [address] [facility] [address] [place] [address] Pleurisy (Primary Dx); Medicine - [place] Provider, [facility] Otalgia of both ears; [address] [facility] [place] [address] Allergies Active Allergy Reactions Severity Noted Date Comments Penicillins Unknown - See comments 06/12/2008 Aller gy as a child documented as of this encounter (statuses as of 01/27/2020) Medications Medication Sig Dispensed Refills Start Date End Date Status albuterol 2.5 mg /3 mL Inhale 2.5 mg. 0 Active (0.083 %) nebulizer solution insulin lispro (HUMALOG inject 25 Units 0 Active U-100 INSULIN under the skin SC)Indications: Pt has daily. insulin pump Indications: Pt has insulin pump doxazosin 8 mg tablet Take 8 mg by 0 Active mouth 2 (two) times daily. NIFEdipine ER 30 mg Take 30 mg by 0 Active tablet mouth 2 (two) times daily. furosemide 80 mg tablet Take 80 mg by 0 Active mouth every morning and evening. atorvastatin 40 mg Take 40 mg by 0 Active tablet mouth daily. carvediloL 25 mg tablet Take 12.5 mg by 0 Active mouth 2 (two) times daily with meals. losartan 100 mg tablet Take 100 mg by 0 01/01/2020 Active mouth daily. sevelamer 800 mg tablet 0 12/22/2019 Active FAMOTIDINE ORAL Take by mouth. 0 Active ondansetron 4 mg tablet TK 1 T PO Q 6 H 0 11/02/2019 Active PRN azithromycin 250 mg Take 1 tablet by 6 tablet 0 01/27/2020 Active tabletIndications: mouth daily. Take Pleurisy 500 mg day 1, then 250 mg days 2 to 5. 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 Essential hypertension, benign 06/29/2008 documented as of this encounter (statuses as of 01/27/2020) Resolved Problems Problem Noted Date Resolved Date Type II or unspecified type diabetes mellitus with 9 05/06/2010 ophthalmic manifestations, uncontrolled(250.52) documented as of this encounter (statuses as of 01/27/2020) Social History Tobacco Use Types Packs/Day Years Used Date Never Smoker Smokeless Tobacco: Former User Comments: 2018 quit Alcohol Use Drinks/Week oz/Week Comments No Sex Assigned at Date Recorded Not on file COVID-19 Exposure Response Date Recorded In the last month, have you been in contact with No / Unsure 01/27/2020 3:19 PM CDT someone who was confirmed or suspected to have Coronavirus / COVID-19? documented as of this encounter Last Filed Vital Signs Vital Sign Reading Time Taken Comments Blood Pressure 156/75 01/27/2020 3:14 PM CDT Pulse 75 01/27/2020 3:12 PM CDT Temperature 36.8 C (98.2 F) 01/27/2020 3:12 PM CDT Respiratory Rate 18 01/27/2020 3:12 PM CDT Oxygen Saturation 98% 01/27/2020 3:12 PM CDT Inhaled Oxygen Concentration - - Weight 114.8 kg (253 lb) 01/27/2020 3:12 PM CDT Height 182.9 cm (6') 01/27/2020 3:12 PM CDT Body Mass Index 34.31 01/27/2020 3:12 PM CDT documented in this encounter Patient Instructions Patient InstructionsAshley Negron FNP - 01/27/2020 3:40 PM CDT1. Pleurisy 2. Otalgia of both ears 3. Sinus pressure - azithromycin 250 mg tablet; Take 1 tablet by mouth daily. Take 500 mg day 1, then 250 mg days 2 to5. Dispense: 6 tablet; Refill: 0 - unable to take NSAIDS because of dialysis; discussed can take Tylenol with codeine if needed, up to 4000 mg Tylenol max. - strong ER precautions given and patient verbalized understanding. - education provided to patient regarding home care includes: Mucinex max strength 1200mg tabs q12hr as needed Tylenol and Ibuprofen as directed Rest Increase fluids -Hydration with clear liquids. Vitamin C Warm salt water gargles for sore throat. Breath humidified air (steam) Sipping warm drinks may help. Warm Compresses (if sinus pressure or pain). Hand Hygiene (with alcohol gels or hand washing) Advised to take Tylenol or Ibuprofen as per label recommendation as needed for pain or fever Honey 10mL (2 teaspoons) has been shown to relieve cough at bedtime. Dark Chocolate helps with cough (xanthenes) Avoidance of cigarette smoke, alcoholic drinks, diving into deep water and air travel is useful. Irrigate your nose with normal saline moisture spray 2 or 3 times a day. You may use a spray, squeeze bottle, or nasal pot. - Advised to follow up with PCP, Urgent Care, or go to the nearest Emergency Department sooner for any new, worsening, persistent, or concerning symptoms. Plan of care, desired health behaviors, goals, and medication discussed with patient. Education resources provided and reviewed with AVS. Patient/guardian/family verbalized understanding & agrees to plan of care. Urgent Care precautions and follow up : 1. Return to clinic if your symptoms should worsen or fail to improve within 72 hours. 2. The care provided in the urgent care was for acute problems only. 3. You should follow up with your primary care provider within 72 hours. 4. Fill and take all your medications as prescribed. 5. Make sure you are staying adequately hydrated. MAY FOLLOW-UP WITH A PROVIDER OF YOUR CHOICE, SUCH : 1. A PHYSICIAN OF YOUR CHOICE OR, IF YOU WISH TO FOLLOW-UP WITHIN THE [facility], MAY TRY THESE OPTIONS (CLINIC APPOINTMENTS AVAILABLE ON [id number] BASIS): 1. SCHEDULE AN APPOINTMENT ONLINE AT [facility] 2. OR CALL THE [facility] ACCESS CENTER AT OR 3. OR CALL YOUR [facility] PHYSICIAN'S OFFICE DIRECTLY IF YOU ARE ALREADY AN ESTABLISHED [facility] PATIENT. After hours care nurse access center available by calling [phone] 24 hours 7 days per week. Ashley GIRALDO [facility] Patient Education Noncardiac Chest Pain Based on your visit today, the healthcare provider doesnt know what is causing your chest pain. In most cases, people who come to the emergency room with chest pain dont have a problem with theirheart. Instead, the pain is caused by other conditions. It's important for the healthcare team to besure you are not having a life-threatening cause for chest pain such as: Heart attack Blood clot in the lungs Collapsed lung Ruptured esophagus Tearing of the aorta Once these major causes have been ruled out, you may have further evaluation for nonheart causes of chest pain. These may be problems with the lungs, muscles, bones, digestive tract, nerves, or mental health. They include: Inflammation around the lungs (pleurisy) Collapsed lung (pneumothorax) Fluid around the lungs (pleural effusion) Lung cancer (a rare cause of chest pain) Inflamed cartilage between the ribs (costochondritis) Fibromyalgia Rheumatoid arthritis Chest wall strain Reflux Stomach ulcer Spasms of the esophagus Gall stones Gallbladder inflammation Panic or anxiety attacks Emotional distress Your condition doesnt seem serious. And your pain doesnt seem to be coming from your heart. But sometimes the signs of a serious problem take more time to appear. Watch for the warning signs listed below. Home care Follow these guidelines when caring for yourself at home: Rest today and don't do any strenuous activity. Take any prescribed medicine as directed. Follow-up care Follow up with your healthcare provider, or as advised, if you dont start to feel better in 24 hours. Call 911 Call 911 if any of these occur: A change in the type of pain: if it feels different, becomes more severe, lasts longer, or beginsto spread into your shoulder, arm, neck, jaw or back Shortness of breath or increased pain with breathing Weakness, dizziness, or fainting Rapid heart beat Crushing sensation in your chest When to seek medical advice Call your healthcare provider right away if any of these occur: Cough with dark colored sputum (phlegm) or blood Fever of 100.4F (38C) or higher, or as directed by your healthcare provider Swelling, pain or redness in one leg [employer] last reviewed this educational content on 09/03/201819998521-6534 [employer]. All rights reserved. This information is not intended as a substitute for professional medical care. Always follow your healthcare professional's instructions. documented in this encounter Progress Notes Eli Burgess RN - 01/27/2020 3:40 PM CDT Dg Camacho is a 59 year old male in office for the following: Chief Complaint Patient presents with Ear Pain stas All vitals taken. Allergies reviewed. All medications reviewed. Fall risk assessed. Level of pain 6. [facility] [address] [place] [address] Eli Burgess RN 01/27/2020 3:20 PM Ashley Marcelo FNP - 01/27/2020 3:40 PM CDT Cc: Chief Complaint Patient presents with Ear Pain stas Dg Camacho is a 59 year old male with PMH of ESRD presents with concern for ear pain. He started about 4 days ago with bilateral ear pain that radiates down to neck and chest wall. Pain sometimes whenhe breathes in. Some sinus pressure/phlegm. He's not taking any otc medications. He's on PD since July. He's under a lot of stress. Recently furloughed from job and has job interview Wednesday that he "badly needs". He denies any chest pain, sob, syncope, lightheadedness, vision changes or dizziness. Denies any fever, chills or body aches. Eating/drinking okay. Denies any sick contacts. Ear Pain Location: Bilateral Behind ear: No abnormality Quality: Pressure Severity: Moderate Onset quality: Gradual Duration: 4 days Timing: Intermittent Progression: Unchanged Chronicity: New Context: recent URI Context: not direct blow, not elevation change, not foreign body in ear, not loud noise and not water in ear Relieved by: None tried Worsened by: Nothing Ineffective treatments: None tried Associated symptoms: congestion and neck pain Associated symptoms: no abdominal pain, no cough, no diarrhea, no ear discharge, no fever, no headaches, no hearing loss, no rash, no rhinorrhea, no sore throat and no vomiting Congestion: Location: Nasal Interferes with sleep: no Interferes with eating/drinking: no Risk factors: no recent travel, no chronic ear infection and no prior ear surgery Allergies Dg is allergic to pcn [penicillins]. Medications Outpatient Medications Prior to Visit Medication Sig Dispense Refill atorvastatin 40 mg tablet Take 40 mg by mouth daily. carvediloL 25 mg tablet Take 12.5 mg by mouth 2 (two) times daily with meals. furosemide 80 mg tablet Take 80 mg by mouth every morning and evening. NIFEdipine ER 30 mg tablet Take 30 mg by mouth 2 (two) times daily. doxazosin 8 mg tablet Take 8 mg by mouth 2 (two) times daily. albuterol 2.5 mg /3 mL (0.083 %) nebulizer solution Inhale 2.5 mg. insulin lispro (HUMALOG U-100 INSULIN SC) inject 25 Units under the skin daily. Indications: Pt has insulin pump No facility-administered medications prior to visit. Histories Past Medical History: Diagnosis Date Anxiety Asthma Chronic kidney disease Depression Diabetes mellitus ESRD (end stage renal disease) on dialysis peritoneal dialysis Hypertension Past Surgical History: Procedure Laterality Date PHACOEMULSIFICATION OF CATARACT WITH INTRAOCULAR LENS IMPLANT Right 10/25/2019 Surgeon: Luke Hewitt MD; Location: [facility] PHACOEMULSIFICATION OF CATARACT WITH INTRAOCULAR LENS IMPLANT Left 11/08/2019 Surgeon: Luke Hewitt MD; Location: [facility] Social History Socioeconomic History Marital status: Spouse name: Not on file Number of children: Not on file Years of education: Not on file Highest education level: Not on file Occupational History Not on file Social Needs Financial resource strain: Not on file Food insecurity Worry: Not on file Inability: Not on file Transportation needs Medical: Not on file Non-medical: Not on file Tobacco Use Smoking status: Never Smoker Smokeless tobacco: Former User Tobacco comment: 2018 quit Substance and Sexual Activity Alcohol use: No Drug use: Not on file Sexual activity: Not on file Lifestyle Physical activity Days per week: Not on file Minutes per session: Not on file Stress: Not on file Relationships Social connections Talks on phone: Not on file Gets together: Not on file Attends episcopal service: Not on file Active member of club or organization: Not on file Attends meetings of clubs or organizations: Not on file Relationship status: Not on file Intimate partner violence Fear of current or ex partner: Not on file Emotionally abused: Not on file Physically abused: Not on file Forced sexual activity: Not on file Other Topics Concern Not on file Social History Narrative Not on file Family History Problem Relation Age of Onset Cancer Mother Hypertension Mother Cancer Father Hypertension Father Review of Systems Constitutional: Negative for activity change, appetite change, chills, diaphoresis, fatigue and fever. HENT: Positive for congestion, ear pain, postnasal drip and sinus pressure. Negative for ear discharge, hearing loss, rhinorrhea and sore throat. Eyes: Negative for visual disturbance. Respiratory: Negative for cough, chest tightness, shortness of breath, wheezing and stridor. Cardiovascular: Negative for chest pain, palpitations and leg swelling. Gastrointestinal: Negative for abdominal pain, diarrhea, nausea and vomiting. Musculoskeletal: Positive for neck pain. Negative for myalgias. Skin: Negative for rash. Neurological: Negative for dizziness, tremors, syncope, facial asymmetry, speech difficulty, weakness, light-headedness, numbness and headaches. All other systems reviewed and are negative. Vital Signs BP (!) 156/75 | Pulse 75 | Temp 36.8 C (98.2 F) (Oral) | Resp 18 | Ht 6' (1.829 m) | Wt 253lb (114.8 kg) | SpO2 98% | BMI 34.31 kg/m Physical Exam Vitals signs and nursing note reviewed. Constitutional: Appearance: He is well-developed. HENT: Head: Normocephalic and atraumatic. Right Ear: Tympanic membrane, ear canal and external ear normal. Left Ear: Tympanic membrane, ear canal and external ear normal. Nose: Mucosal edema and congestion present. No nasal tenderness. Mouth/Throat: Lips: Strum. Mouth: Mucous membranes are moist. Pharynx: Oropharynx is clear. No pharyngeal swelling, oropharyngeal exudate, posterior oropharyngeal erythema or uvula swelling. Tonsils: No tonsillar exudate or tonsillar abscesses. 1+ on the right. 1+ on the left. Eyes: Conjunctiva/sclera: Conjunctivae normal. Neck: Musculoskeletal: Normal range of motion and neck supple. Cardiovascular: Rate and Rhythm: Normal rate and regular rhythm. Heart sounds: Normal heart sounds. No murmur. No friction rub. No gallop. Pulmonary: Effort: Pulmonary effort is normal. No accessory muscle usage or respiratory distress. Breath sounds: Normal breath sounds. No decreased breath sounds, wheezing, rhonchi or rales. Musculoskeletal: Normal range of motion. Skin: General: Skin is warm and dry. Findings: No rash. Neurological: Mental Status: He is alert and oriented to person, place, and time. Psychiatric: Behavior: Behavior normal. Assessment/Plan Dg Camacho is a 59 year old male presents with concern for ear pain. 1. Pleurisy 2. Otalgia of both ears 3. Sinus pressure - azithromycin 250 mg tablet; Take 1 tablet by mouth daily. Take 500 mg day 1, then 250 mg days 2 to5. Dispense: 6 tablet; Refill: 0 - unable to take NSAIDS because of dialysis; discussed can take Tylenol with codeine if needed, up to 4000 mg Tylenol max. - strong ER precautions given and patient verbalized understanding. - education provided to patient regarding home care includes: Mucinex max strength 1200mg tabs q12hr as needed Tylenol and Ibuprofen as directed Rest Increase fluids -Hydration with clear liquids. Vitamin C Warm salt water gargles for sore throat. Breath humidified air (steam) Sipping warm drinks may help. Warm Compresses (if sinus pressure or pain). Hand Hygiene (with alcohol gels or hand washing) Advised to take Tylenol or Ibuprofen as per label recommendation as needed for pain or fever Honey 10mL (2 teaspoons) has been shown to relieve cough at bedtime. Dark Chocolate helps with cough (xanthenes) Avoidance of cigarette smoke, alcoholic drinks, diving into deep water and air travel is useful. Irrigate your nose with normal saline moisture spray 2 or 3 times a day. You may use a spray, squeeze bottle, or nasal pot. - Advised to follow up with PCP, Urgent Care, or go to the nearest Emergency Department sooner for any new, worsening, persistent, or concerning symptoms. Plan of care, desired health behaviors, goals, and medication discussed with patient. Education resources provided and reviewed with AVS. Patient/guardian/family verbalized understanding & agrees to plan of care. Urgent Care precautions and follow up : 1. Return to clinic if your symptoms should worsen or fail to improve within 72 hours. 2. The care provided in the urgent care was for acute problems only. 3. You should follow up with your primary care provider within 72 hours. 4. Fill and take all your medications as prescribed. 5. Make sure you are staying adequately hydrated. MAY FOLLOW-UP WITH A PROVIDER OF YOUR CHOICE, SUCH : 1. A PHYSICIAN OF YOUR CHOICE OR, IF YOU WISH TO FOLLOW-UP WITHIN THE [facility], MAY TRY THESE OPTIONS (CLINIC APPOINTMENTS AVAILABLE ON [id number] BASIS): 1. SCHEDULE AN APPOINTMENT ONLINE AT [facility] 2. OR CALL THE [facility] ACCESS CENTER AT OR 3. OR CALL YOUR [facility] PHYSICIAN'S OFFICE DIRECTLY IF YOU ARE ALREADY AN ESTABLISHED [facility] PATIENT. After hours care nurse access center available by calling [phone] 24 hours 7 days per week. Ashley GIRALDO [facility] documented in this encounter Plan of Treatment Health Maintenance Due Date Last Done Comments HEPATITIS C (HCV) SCREEN 1960 PNEUMOCOCCAL 0-64 YEARS COMBINED 1968 SERIES (1 of 3 - PCV13) EYE EXAM 1972 FOOT EXAM 1980 DTaP,Tdap,and Td Vaccines (1 - 1981 Tdap) COLON CANCER SCREENING ANNUAL 2012 FIT/FOBT COLON CANCER SCREENING FIT DNA 2012 EVERY 3 YEARS COLON CANCER SCREENING 2012 SIGMOIDOSCOPY EVERY 5 YEARS COLONOSCOPY 2012 Colorectal Cancer Screening 2012 Zoster Recombinant Vaccine 2012 (SHINGRIX) (1 of 2) URINE MICROALBUMIN 06/30/2019 06/29/2018 HgA1C 08/07/2019 02/06/2019 INFLUENZA VACCINE (#1) 2019 LDL-C 02/07/2020 02/06/2019, 06/29/2018 CREATININE (SERUM) 10/19/2020 10/20/2019, 02/09/2019, 02/09/2019, Additional history exists Depression Screening 11/07/2020 11/08/2019 documented as of this encounter Implants Implanted Type Area Spot Remover Device Shelf Model / Serial Identifier Expiration / Lot Date Lens, Hung #[id number] - [id number] LENS Right: Hung 02/03/2024 [id number] / Implanted: Qty: 1 on 10/25/2019 by Luke Smith MD at [facility] 1 [id number] / N/A Lens, Hung #[id number] - [id number] LENS Left: Eye Hung 12/04/2023 [id number] / Implanted: Qty: 1 on 11/08/2019 by Luke Smith MD at [facility] 8 [id number] / NA documented as of this encounter Results Not on filedocumented in this encounter Visit Diagnoses Diagnosis Pleurisy - Primary Pleurisy without mention of effusion or current tuberculosis Otalgia of both ears Otalgia, unspecified Sinus pressure Other diseases of nasal cavity and sinus es documented in this encounter Insurance Payer Benefit Plan Subscriber ID Effective Dates Phone Address Type / Group BCBS [facility] [id number] 2018-Paulo [phone] [address] PPO/POS [place] - OUT OF t [id number] [place] [address] documented as of this encounter
--- OUTSIDE RECORDS SUMMARY | 2020-04-20 08:50 | XMS REPORT | Summary of Care ---
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 coronaviru s ([address] Dx) [place] [address] Allergies Active Allergy Reactions Severity Noted Date Comments Penicillins Unknown - See comments 06/12/2008 Aller gy as a child documented as of this encounter (statuses as of 03/19/2020) Medications Medication Sig Dispensed Refills Start Date [...] as of this encounter (statuses as of 03/19/2020) Active Problems Problem Noted Date Troponin I above reference range 02/07/2019 JANN on CPAP 02/07/2019 Dyspnea 02/06/2019 Obesity (BMI 30-39.9) 02/06/2019 Hypertensive emergency 02/06/2019 IDDM (insulin dependent diabetes mellitus) 02/06/2019 Stage 4 chronic kidney disease 02/06/2019 RENATA (acute kidney injury) 02/06/2019 Positive D dimer 02/06/2019 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 05/06/2010 Overview: ICD10 Diagnosis 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 Essential hypertension, benign 06/29/2008 documented as of this encounter (statuses as of 03/19/2020) Resolved Problems Problem Noted Date Resolved Date Type II or unspecified type diabetes mellitus with 9 05/06/2010 ophthalmic manifestations, uncontrolled(250.52) documented as of this encounter (statuses as of 03/19/2020) Social History Tobacco Use Types Packs/Day Years Used Date Never Smoker Smokeless Tobacco: Former User Comments: 2018 quit Alcohol Use Drinks/Week oz/Week Comments No Sex Assigned at Date Recorded Not on file COVID-19 Exposure Response Date Recorded In the last month, have you been in contact with Yes 03/19/2020 5:27 PM STATION EXAMINER someone who was confirmed or suspected to have Coronavirus / COVID-19? documented as of this encounter Last Filed Vital Signs Not on filedocumented in this encounter Nursing Notes Beverly Pink MA - 03/19/2020 7:20 PM Cy Camacho is a 59 year old male here for COVID Screening with a Nasopharyngeal Swab All droplet and contact precautions taken with appropriate PPE worn while interacting with patient. ? Goggles ? N95 Mask ? Gloves ? Gown RR 78 Pulse Ox 98% Patient educated on plan of care for visit, swabbing technique, risks and benefits of test and length of time to receive results. Verbal consent obtained to perform test. CDC Fact Sheet for Patients nCoV Diagnostic Panel dated 06/18/2019 and Factsheet What to Do if Sick with COVID 19 05/29/19 provided. Patient swabbed per appropriate nasopharyngeal technique, and patient tolerated well. Patient was discharged from the testing clinic in stable condition. Beverly Pink MA 03/19/2020 5:28 PM ION EXAMINER documented in this encounter Plan of Treatment Name Type Priority Associated Diagnoses Order S abel COVID-19 (MOLECULAR LAB Routine Exposure to Expected : 03/19/2020, TESTING SARS-associated Expires: 021 NUCLEIC ACID coronavirus AMPLIFICATION) Health Maintenance Due Date Last Done Comments [...] of this encounter Implants Implanted Type Area Front Desk Host Device Shelf Model / Serial Identifier Expiration / Lot Date Lens, Hung #[id number] - [id number] LENS Right: Hung 02/03/2024 [id number] / Implanted: Qty: 1 on 10/25/2019 by Luke Smith MD at [facility] Eye 1 [id number] / N/A Lens, Hung #[id number] - [id number] LENS Left: Eye Hung 12/04/2023 [id number] / Implanted: Qty: 1 on 11/08/2019 by Luke Smith MD at [facility] 2 [id number] / NA documented as of this encounter Results Not on filedocumented in this encounter Visit Diagnoses Diagnosis Exposure to SARS-associated coronavirus - Primary documented in this encounter Additional Health Concerns Infection Onset Date Last Indicated Resolved Time COVID-19 Rule Out 03/19/2020 03/19/2020 documented as of this encounter Insurance Payer Benefit Plan Subscriber ID Effective Dates Phone Address Type / Group [facility] [id number] 2018-Paulo [phone] [address] PPO/[place] - OUT OF t [id number] [place] [address] documented as of this encounter
--- OUTSIDE RECORDS SUMMARY | 2020-04-20 08:50 | XMS REPORT | Continuity of Care Document ---
:1960 Author Organization [facility] t Address [address] [place] [address] Care Team Providers Name Role Phone Julio César Marin MD Primary Care Physician Lab, Fam Pob I Attending Clinician Unavailable Jesus Brar MD Attending Clinician Elias Foster MD Attending Clinician Provider, Urgent Care Attending Clinician Unavailable Tuan Degroot MD Attending Clinician Chang Pham MD Attending Clinician Sara BLUE Attending Clinician Unavailable Cortez Velez MD Attending Clinician Lukas Hodges MD Attending Clinician Jeffry HILLS Attending Clinician Eros ALBERTS Attending Clinician Unavailable Rober ALBERTS Attending Clinician Unavailable Chase Martinez MD Attending Clinician Juliocesar ALBERTS Attending Clinician Unavailable Dong ALBERTS Attending Clinician Unavailable Lisa Leo RN Attending Clinician Unavailable Divya Rdz MD Attending Clinician VALENTÍN Attending Clinician Unavailable MAYKEL Admitting Clinician Unavailable SANDI Admitting Clinician Unavailable KAJAL Admitting Clinician Unavailable VALENTÍN Admitting Clinician Unavailable Payers Payer Name Policy Type Policy Effective Date Expiration Date Sour ce Number BCBSBCBS OUT OF [id number] [id number] entPPO Problems Condition Condition Condition Status Onset Resolution Last Treating Co mments Source Name Details Category Date Date Treatment Clinician Date Sepsis Sepsis Disease Active 2019-04 [place] 04-05 [facility] 00:00: st Peritoneal Peritoneal Disease Active 2019-04 [place] dialysis dialysis 04-05 [facility] i catheter catheter 00:00: st infection infection 00 ESRD (end ESRD (end Disease Active Dawna ston stage stage 6-08 [facility] renal renal 00:00: st disease) disease) 00 (HCC) 2020 (HCC) 2020 TTS TTS Type 1 Type 1 Problem Active [facility] diabetes Diabetes 4-30 Family mellitus Mellitus 00:00: Practi c 00 e Essential Essential Problem Active Eric edward hypertensi Hypertensi 4-30 Fa kate on on 00:00: Practic 00 e End-stage End-stage Problem Active Eric edward renal Renal 4-30 Family disease Disease 00:00: Practic 00 e Hypertensi Hypertensi Problem Active V illage ve ve 4-30 Family disorder Disorder 00:00: Practi c 00 e Disorder Disorder Problem Active [facility] of eye due of Eye Due 4-30 Fa kate to type 1 to Type 1 00:00: Prac tic diabetes Diabetes 00 e mellitus Mellitus Obesity Obesity Problem Active 2018-04 [place] 1-25 Family 00:00: Practic 00 e 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 1-25 Family 00:00: Practic 00 e General General Problem Active 2018-04 [facility] finding of Finding of 1-25 Fa kate observatio Observatio 00:00: Pr actic n of n of 00 e patient Patient Malignant Malignant Disease Active 2018-04 Dawna ston hypertensi hypertensi 1-21 Me thodi on on 00:00: st 00 Hypertensi Hypertensi Disease Active 2018-04 [place] ve crisis ve crisis 1-21 Meth vanessa 00:00: st 00 Class 2 Class 2 Disease Active 2018-04 [place] obesity in obesity in 1-10 Me thodi adult adult 00:00: st 00 Mixed Mixed Disease Active 2018-04 [place] hyperlipid hyperlipid 1-10 Me thodi emia emia 00:00: st 00 Type 2 Type 2 Disease Active 2018-04 [place] diabetes diabetes 04-13 Method i mellitus mellitus 00:00: st without without 00 complicati complicati on, with on, with long-term long-term current current use of use of insulin insulin Essential Essential Disease Active 2018-04 Dawna santillan hypertensi hypertensi 04-13 Me thodi on on 00:00: st 00 Iron Iron Disease Active 2018-04 [place] deficiency deficiency 04-13 Me thodi anemia anemia 00:00: st 00 JANN JANN Disease Active 2018-04 [place] (obstructi (obstructi 04-13 Me thodi ve sleep ve sleep 00:00: st apnea) apnea) 00 Hypothyroi Hypothyroi Disease Active 2018-04 [place] dism dism 04-13 Methodi 00:00: st 00 Depressive Depressive Problem Active [facility] disorder Disorder -09 Family 00:00: Practic 00 e Clinical Clinical Problem Active [facility] ge finding Finding 2-05 Family 00:00: Practic 00 e Hyperlipid Hyperlipid Problem Active V illage emia emia 4-23 Family 00:00: Practic 00 e Chronic Chronic Problem Active [facility] kidney Kidney 1 Family disease Disease 00:00: Practic 00 e Diabetes Problem 2016-05-10 Mem oria mellitus 05:01:48 l (disorder) Diabetes He rmann mellitus (disorder) Problem 05/10/2016 [facility] Gastroesop Problem 2016-05-10 M emoria hageal 05:01:48 l reflux Alexx disease Gastroesop (disorder) hageal reflux disease (disorder) Problem 05/10/2016 [facility] History of Past Illness Condition Condition Condition Status Onset Resolution Last Treating Co mments Source Name Details Category Date Date Treatment Clinician Date Acute Acute Disease Resolve 2019-09-11 2019-09-11 [place] renal renal d 07-24 00:00:00 13:28:02 Method i failure failure 00:00: st (ARF) (ARF) 00 Chronic Chronic Disease Resolve 2018-042019-09-11 2019-09-11 [place] kidney kidney d 04-25 00:00:00 13:28:05 Method i disease disease 00:00: st (CKD) (CKD) 00 stage stage G4/A3, G4/A3, severely severely decreased decreased glomerular glomerular filtration filtration rate (GFR) rate (GFR) between between 15-29 15-29 mL/min/1.7 mL/min/1.7 3 square 3 square meter and meter and albuminuri albuminuri a a creatinine creatinine ratio ratio greater greater than 300 than 300 mg/g mg/g ARF (acute ARF (acute Disease Resolve 2018-042019-09-11 2019-09-11 [place] renal renal d 04-12 00:00:00 13:28:04 Method i failure) failure) 00:00: st 00 Allergies, Adverse Reactions, Alerts Allergy Allergy Status Severity Reaction(s) Onset Inactive Treating Comm ents Source Name Type Date Date Clinician Penicill Propensi Active Other (See Allergy [place] ins ty to Comments) 3-10 as a Methodi adverse 00:00: child st reaction 00 s to drug PENICILL Allergy Active [place] IN to Family substanc Practic e e PENICILL Allergy Active [place] INS to Family substanc Practic e e penicill penicill Active Memori a in in melita Coffey Family History Family Member Diagnosis Comments Start Date Stop Date Source Natural brother Diabetes [facility] ethodi Natural father Cancer [facility] thodist Natural [facility] Natural mother Heart disease [place] [facility] Social History Social Habit Start Date Stop Date Quantity Comments Source History of Cigarette smoker [place] [facility] tobacco use (finding) History [facility] Meth odist Alcohol Std Drinks History [facility] Meth odist Alcohol Binge Sex Assigned At [facility] ethodist Tobacco use and 2019-10-12 2019-10-12 Former user [place] [facility] exposure 00:00:00 00:00:00 Alcohol intake 2019-10-12 2019-10-12 Lifetime [facility] thodist 00:00:00 00:00:00 non-drinker (finding) Tobacco Comment 2019-10-10 2019-10-10 smokeless tobacco Ho [facility] 00:00:00 00:00:00 stopped 02/2019 History SDOH 2019-07-25 2019-07-25 1 [place] Meth odist Alcohol Frequency 00:00:00 00:00:00 Smoking Status Start Date Stop Date Source Never Smoker [facility] Family P ractice Former smoker 2019-10-12 00:00:00 2019-10-12 00:00:00 [place] [facility] Medications Ordered Filled Start Stop Current Ordering Indication Dosage Frequency Signature Comments Components Source Medication Medication Date Date Medication? Clinician (SIG) Name Name minimed minimed 2021-0 No minimed Vill age guardian guardian 1-11 guardian Fam marielle sensor 3 sensor 3 00:00: sensor 3 P ractic misc misc 00 misc e diltiazem 2019-04 2020- No 360mg Take 360 [place] (TIAZAC) - 11-03 mg by Methodi 360 MG 24 16:49: 00:[address] hr capsule 29 :00 valsartan 2019-04- No 320mg QD Take 320 [place] (DIOVAN) 04-07 11-03 mg by Methodi 320 MG 16:49: 00:[address] tablet 29 :00 daily. FLUoxetine 2019-04 Yes 10mg QD Take 10 mg [place] (PROzac) 10 03 by mouth Meth vanessa MG capsule 16:49: daily. st 27 INSULIN 2019-04 Yes Inject Roth SUBCUTANEOU 04-07 under the Met hodi S PUMP, 16:49: skin st HUMALOG, 27 continuous 100 ly. UNITS/ML INSULIN PUMP INFUSION (HumaLOG) albuterol 2019-04 Yes 2.5mg Q4H Take 2.5 Dawna ston (ACCUNEB) 1-03 mg by Methodi 2.5 mg /3 16:49: nebulizati st mL (0.083 27 on every 4 %) (four) nebulizer hours as solution needed for wheezing. doxazosin 2019-04 Yes Q.5D Take by Marvin on (CARDURA) 8 -03 mouth 2 Metho di MG tablet 16:49: (two) st 27 times a day. atorvastati 2019-04 Yes 40mg QD Take 40 mg Roth n (LIPITOR) 03 by mouth Meth vanessa 40 MG 16:49: nightly. st tablet 27 ALPRAZolam 2019-04 Yes .5mg Take 0.5 Dawna ston (XANAX) 0.5 1-03 mg by Methodi MG tablet 16:49: mouth as st 27 needed for anxiety. losartan 2019-04 Yes 100mg QD Take 100 [place] (COZAAR) 1-03 mg by Methodi 100 MG 16:49: mouth st tablet 27 nightly. vit B 2019-04 Yes 1{tbl} QD Take 1 Roth complex-vit -03 tablet by Met hodi [place] 16:49: mouth st C-folic 27 daily. acid (NEPHRO-VIT E OTC) 0.8 mg tablet sevelamer 2019-04 Yes 800mg [id number] Take 800 [facility] (RENAGEL) 04-07 [id number] mg by Met hodi 800 MG 16:49: 3D mouth 3 st tablet 27 (three) times a day with meals. furosemide 2019-04 Yes 80mg Q.5D Take 80 mg [place] (LASIX) 80 04-07 by mouth 2 Met hodi mg tablet 16:49: (two) st 27 times a day. famotidine 2019-04 Yes Q.5D Take by [place] (PEPCID AC 04-07 mouth 2 Method i MAXIMUM 16:49: (two) st STRENGTH 27 times a ORAL) day. ondansetron 2019-04 Yes 4mg Q8H Take 4 mg [place] (ZOFRAN) 4 04-07 by mouth Metho di MG tablet 16:49: every 8 st 27 (eight) hours as needed for nausea or vomiting. carvediloL 2019-04 Yes 12.5mg Q.5D Take 12.5 [facility] (COREG) 04-07 mg by Methodi 12.5 MG 16:49: mouth 2 st tablet 27 (two) times a day with meals. NIFEdipine 2019-04 Yes 30mg QD Take 30 mg [place] XL 04-07 by mouth Methodi (PROCARDIA 16:49: daily. st XL) 30 MG 27 24 hr tablet polyethylen 2019-04 Yes 17g Q24H Take 17 g [place] e glycol 04-07 by mouth [facility] (MIRALAX) 00:00: daily as st 17 gram 00 needed for packet constipati on. docusate 2019-04 2020- No 100mg Q.5D Take 1 [place] sodium 04-07 capsule Method[facility] (Colace) 00:00: 23:59 ([address] 100 MG 00 :00 total) by capsule mouth 2 (two) times a day for 30 days. psyllium 2019-04 2020- No .52g QD Take 1 [place] (Metamucil) 04-07 capsule Meth vanessa 0.52 gram 00:00: 23:59 (0.[address] capsule 00 :00 total) by mouth daily for 30 days. doxycycline 2019-04- No 100mg Q.5D Take 1 [place] (VIBRAMYCIN 04-0708 capsule Meth vanessa ) 100 MG 00:00: 23:59 ([address] capsule 00 :00 total) by mouth 2 (two) times a day with meals for 5 days. valsartan 2019-04- No 320mg QD Take 320 [place] (DIOVAN) 1-02 11-02 mg by Methodi 320 MG 11:36: 00:[address] tablet 07 :00 daily. tamsulosin 2020- No .4mg QD Take 1 [place] (Flomax) 10-11 capsule Methodi 0.4 mg 00:00: 23:59 (0.[address] capsule 00 :00 total) by mouth daily for 30 days. amLODIPine 2019-2019- No 1{tbl} Q24H Take 1 [place] (NORVASC) 5 10-10 tablet by Me thodi mg tablet 07:05: 00:[address] 52 :00 daily. multivitami 2019- 2020- No 1{tbl} QD Take 1 [place] with - 06-05 tablet by Methodi minerals 13:53: 00:[address] tablet 34 :00 daily. clonIDINE 2019- 2020- No .2mg [id number] Take 0.2 Roth HCl 6-05 06-05 [id number] mg by Methodi (CATAPRES) 13:53: 00:[address] 0.2 MG 34 :00 (three) tablet times a day. diltiazem 2019- 2020- No 360mg QD Take 1 [place] CD 4-27 05-27 capsule Methodi (CardIZEM 00:00: 23:59 ([address] CD) 360 MG 00 :00 total) by 24 hr mouth capsule daily for 30 days. valsartan 2019-2019- No 320mg QD Take 1 [place] (DIOVAN) 4-27 05-27 tablet Methodi 320 MG 00:00: 23:59 ([address] tablet 00 :00 total) by mouth daily for 30 days. diltiazem 2019- No 420mg QD Take 420 [place] (TIAZAC) 4-26 04-26 mg by Methodi 420 MG 24 15:57: 00:[address] hr capsule 00 :00 daily. hydroCHLORO 2020-0 2020- No 37.5mg QD Take 37.5 [facility] thiazide 4-26 04-26 mg by Methodi (HYDRODIURI 15:57: 00:[address] L) 25 MG 00 :00 daily. tablet Take 1 and 1/2 tablets daily furosemide 2019- No 80mg QD Take 1 [place] (LASIX) 80 4-26 05-26 tablet (80 Me thodi mg tablet 00:00: 23:59 mg total) st 00 :00 by mouth daily for 30 days. Misc No Alex 105 mL, Memoria Medication 2-03 Quan Soln-IV, l 14:17: IV, Once, first dose 05/08/16 8:17:00 FINANCIAL ANALYSIS ADVISOR, stop date 05/08/16 8:17:00 FINANCIAL ANALYSIS ADVISOR propofol No Alex 60 mg = 6 Mem oria 2-03 Quan mL, l 14:11: Emulsion, Rolla 00 IV, Once, first dose 05/08/16 8:11:00 FINANCIAL ANALYSIS ADVISOR, stop date 05/08/16 8:11:00 FINANCIAL ANALYSIS ADVISOR propofol No Alex 80 mg = 8 Mem oria 2- Quan mL, l 14:06: Emulsion, IV, Once, first dose 05/08/16 8:06:00 FINANCIAL ANALYSIS ADVISOR, stop date 05/08/16 8:06:00 FINANCIAL ANALYSIS ADVISOR lidocaine No Alex 2 mL, Memori a 2- Quan Injection, l 14:01: IV, Once, first dose 05/08/16 8:01:00 FINANCIAL ANALYSIS ADVISOR, stop date 05/08/16 8:01:00 FINANCIAL ANALYSIS ADVISOR propofol No Alex 160 mg = Grady nolvia 2- Quan 16 mL, l 14:01: Emulsion, Alexx 00 IV, Once, first dose 05/08/16 8:01:00 FINANCIAL ANALYSIS ADVISOR, stop date 05/08/16 8:01:00 FINANCIAL ANALYSIS ADVISOR LR 1,000 mL Alisa Gifford 1,000 mL, Georgette 05-08 Efren LEONARD IV, 30 l 13:24: mL/hr, Rolla 00 start date 05/08/16 7:24:00 FINANCIAL ANALYSIS ADVISOR Lidocaine Alisa Gifford 0.2 mL, Grady nolvia 2% 0.2 mL 05-08 Efren LEONARD Injection, l IV Start 13:24: Subcutaneo Her downey [[facility]] 00 us, Once PRN for other (see comment), first dose 05/08/16 7:24:00 FINANCIAL ANALYSIS ADVISOR Patient's Yes See [facility] Own Med 30 Instructio l Insulin 15:52: ns, Alexx 00 INSULIN PUMP, 0 Refill(s)I NSULIN PUMP hydroCHLORO Yes 1 tabs, Mem oria thiazide-lo 30 Oral, l sartan 25 15:51: Daily, 0 Herm chace mg-100 mg 00 Refill(s), oral tablet HTN furosemide Yes 20 mg = 1 Me moria 20 mg oral 1-30 tabs, l tablet 15:50: Oral, Rolla 00 Daily, 0 Refill(s), HTN FLUoxetine Yes 10 mg = 1 Me moria 10 mg oral 1-30 tabs, l tablet 15:50: Oral, Rolla 00 Daily, 0 Refill(s), DEPRESSIVE carvedilol Yes 25 mg = 1 Me moria 25 mg oral 1-30 tabs, l tablet 15:49: Oral, BID, Edith nn 00 0 Refill(s), HTN atorvastati Yes 40 mg = 1 M emoria n 40 mg 1-30 tabs, l oral tablet 15:49: Oral, Edith nn 00 Daily, 0 Refill(s), HIGH CHOL amLODIPine Yes 5 mg = 1 Mem oria 5 mg oral 1-30 tabs, l tablet 15:49: Oral, Rolla 00 Daily, 0 Refill(s), HTN albuterol albuterol No albuterol [facility] sulfate 2.5 sulfate 2.5 sulfate Family mg/3 mL mg/3 mL 2.5 mg/3 Pract ic (0.083 %) (0.083 %) mL (0.083 e solution solution %) for for solution nebulizatio nebulizatio for n n nebulizati on alprazolam alprazolam No alprazolam [facility] 0.5 mg 0.5 mg 0.5 mg Family tablet tablet tablet Practic e atorvastati atorvastati No atorvastat [facility] n 40 mg n 40 mg in 40 mg Famil y tablet Take tablet Take tablet Practic 1 tablet 1 tablet Take 1 e every day every day tablet by oral by oral every day route at route at by oral bedtime for bedtime for route at 90 days. 90 days. bedtime for 90 days. azithromyci azithromyci No azithromyc [facility] n 250 mg n 250 mg in 250 mg Fa kate tablet tablet tablet Practic e butalbital- butalbital- No 1capsul Q1D butalbital [facility] acetaminoph acetaminoph e(s) -acetamino Family en-caffeine en-caffeine phen-caffe Practic 50 mg-325 50 mg-325 ine 50 e mg-40 mg mg-40 mg mg-325 capsule capsule mg-40 mg Take 1 Take 1 capsule capsule capsule Take 1 every day every day capsule by oral by oral every day route as route as by oral needed for needed for route as 7 days. 7 days. needed for 7 days. carvedilol carvedilol No 2 Q1D carvedilol [facility] 12.5 mg 12.5 mg 12.5 mg Family tablet Take tablet Take tablet Practic 2 tablets 2 tablets Take 2 e every day every day tablets by oral by oral every day route as route as by oral directed. directed. route as directed. Contour Contour No 5strip( Q1D Contour Eric edward Next Test Next Test s) Next Test Family Strips Take Strips Take Strips Practic 5 strips 5 strips Take 5 e every day every day strips by miscell. by miscell. every day route as route as by directed directed miscell. for 90 for 90 route as days. days. directed for 90 days. Dialyvite Dialyvite No Dialyvite [facility] 800 1 qd 800 1 qd 800 1 qd Fam marielle Practic e DOK 100 mg DOK 100 mg No DOK 100 mg [place] capsule TK capsule TK capsule TK Family ONE C PO ONE C PO ONE C PO Pra ctic BID FOR 30 BID FOR 30 BID FOR 30 e DAYS DAYS DAYS doxazosin 8 doxazosin 8 No .5 BID doxazosin [place] mg tablet mg tablet 8 mg Famil y Take 0.5 Take 0.5 tablet Pract ic tablets tablets Take 0.5 e twice a day twice a day tablets by oral by oral twice a route as route as day by directed directed oral route for 90 for 90 as days. days. directed for 90 days. doxycycline doxycycline No doxycyclin [facility] hyclate 100 hyclate 100 e hyclate Family mg capsule mg capsule 100 mg P ractic capsule e famotidine famotidine No 2 Q1D famotidine [facility] 20 mg 20 mg 20 mg Family tablet Take tablet Take tablet Practic 2 tablets 2 tablets Take 2 e every day every day tablets by oral by oral every day route as route as by oral directed. directed. route as directed. furosemide furosemide No furosemide [facility] 80 mg 80 mg 80 mg Family tablet TAKE tablet TAKE tablet Practic 1 TABLET BY 1 TABLET BY TAKE 1 e MOUTH TWICE MOUTH TWICE TABLET BY DAILY DAILY MOUTH TWICE DAILY gentamicin gentamicin No gentamicin [facility] 0.1 % 0.1 % 0.1 % Family topical topical topical Practi c cream APPLY cream APPLY cream e TO EXIT TO EXIT APPLY TO SITE D SITE D EXIT SITE D Humalog Humalog No Humalog [facility] U-100 U-100 U-100 Family Insulin 100 Insulin 100 Insulin Practic unit/mL unit/mL 100 e subcutaneou subcutaneou unit/mL s solution s solution subcutaneo USE WITH USE WITH us INSULIN INSULIN solution PUMP TOTAL PUMP TOTAL USE WITH DAILY DOSE DAILY DOSE INSULIN 100 100 PUMP TOTAL DAILY DOSE 100 ketorolac ketorolac No 1drop(s TID ketorolac [facility] 0.5 % eye 0.5 % eye ) 0.5 % eye Family drops drops drops Practic Instill 1 Instill 1 Instill 1 e drop 3 drop 3 drop 3 times a day times a day times a by by day by ophthalmic ophthalmic ophthalmic route as route as route as directed directed directed for 15 for 15 for 15 days. days. days. losartan losartan No losartan Eric edward 100 mg 100 mg 100 mg Family tablet TAKE tablet TAKE tablet Practic 1 TABLET BY 1 TABLET BY TAKE 1 e MOUTH ONCE MOUTH ONCE TABLET BY DAILY DAILY MOUTH ONCE DAILY Minimed Minimed No Minimed [facility] e Infusion Infusion Infusion Fam marielle Set USE Set USE Set USE Practi c WITH WITH WITH e INSULIN INSULIN INSULIN PUMP PUMP PUMP DIRECTED . DIRECTED . DIRECTED . CHANGE CHANGE CHANGE EVERY 2 EVERY 2 EVERY 2 DAYS DAYS DAYS nifedipine nifedipine No 2 Q1D nifedipine [place] ER 30 mg ER 30 mg ER 30 mg Fam marielle tablet,exte tablet,exte tablet,ext Practic nded nded ended e release release release Take 2 Take 2 Take 2 tablets tablets tablets every day every day every day by oral by oral by oral route as route as route as directed. directed. directed. nifedipine nifedipine No nifedipine [place] ER 30 mg ER 30 mg ER 30 mg Fam marielle tablet,exte tablet,exte tablet,ext Practic nded nded ended e release 24 release 24 release 24 hr TAKE 1 hr TAKE 1 hr TAKE 1 TABLET BY TABLET BY TABLET BY MOUTH TWICE MOUTH TWICE MOUTH DAILY DAILY TWICE DAILY [facility]dans[facility] HCl 4 mg n HCl 4 mg F amily tablet TK 1 tablet TK 1 tablet TK Practic T PO Q 6 H T PO Q 6 H 1 T PO Q 6 e PRN PRN H PRN Paradigm Paradigm No Paradigm Eric edward [place] 3 [place] 3 [place] Family mL USE WITH mL USE WITH 3 mL USE Practic MEDTRONIC MEDTRONIC WITH e INSULIN INSULIN MEDTRONIC PUMP, PUMP, INSULIN CHANGE CHANGE PUMP, EVERY 2 EVERY 2 CHANGE DAYS DAYS EVERY 2 DAYS [facility]in [facility] e 25 mg ne 25 mg Famil y tablet TAKE tablet TAKE tablet Practic 1 TABLET BY 1 TABLET BY TAKE 1 e MOUTH EVERY MOUTH EVERY TABLET BY 6 HOURS 6 HOURS MOUTH NEEDED NEEDED EVERY 6 HOURS NEEDED Senokot-S 1 Senokot-S 1 No Senokot-S [facility] qd qd 1 qd Family Practic e [facility] carbonate carbonate Family 800 mg 800 mg 800 mg Practic tablet Take tablet Take tablet e 1 tablet as 1 tablet as Take 1 needed by needed by tablet as oral route oral route needed by as as oral route directed. directed. as directed. SIMPLECHOIC SIMPLECHOIC No 45set(s SIMPLECHOI [facility] E quick E quick ) CE quick Famil y Q-23-5 Q-23-5 Q-23-5 Practic infusion infusion infusion e set Take 45 set Take 45 set Take sets every sets every 45 sets 3 months by 3 months by every 3 miscell. miscell. months by route as route as miscell. directed. directed. route as directed. Immunizations Ordered Immunization Filled Immunization Date Status Commen ts Source Name Name tetanus toxoid, tetanus toxoid, 2018-04-05 Completed [facility] age Family unspecified unspecified 00:00:00 Practice formulation formulation pneumococcal pneumococcal 2018-04-05 [facility] kate conjugate PCV 13 conjugate PCV 13 00:00:00 Pr actice Vital Signs Vital Name Observation Time Observation Value Comments Source BP Diastolic 2020-04-15 00:00:00 65 mm[Hg] [facility] Height 2020-04-15 00:00:00 72 [in_i] [facility] BMI (Body Mass 2020-04-15 00:00:00 36.4 kg/m2 [facility] [facility] Index) Practice BP Systolic 2020-04-15 00:00:00 125 mm[Hg] [facility] Body Weight 2020-04-15 00:00:00 268.6 [lb_av] [facility] BP Diastolic 2020-01-05 00:00:00 62 mm[Hg] [facility] Height 2020-01-05 00:00:00 72 [in_i] [facility] BMI (Body Mass 2020-01-05 00:00:00 35.1 kg/m2 [facility] [facility] Index) Practice BP Systolic 2020-01-05 00:00:00 128 mm[Hg] [facility] Body Weight 2020-01-05 00:00:00 258.8 [lb_av] [facility] Systolic blood 2020-02-06 11:09:15 144 mm[Hg] [facility] pressure Diastolic blood 2020-02-06 11:09:15 63 mm[Hg] [facility] pressure Heart rate 2020-02-06 11:09:15 70 /min [facility] Body temperature 2020-02-06 11:09:15 37.06 Yamileth [place] [facility] Respiratory rate 2020-02-06 11:09:15 18 /min [place] [facility] Oxygen saturation in 2020-02-06 11:09:15 98 /min [facility] Arterial blood by Pulse oximetry Body height 2020-02-04 15:14:08 182.9 cm [facility] Body weight 2020-02-04 15:14:08 116.075 kg [facility] BMI 2020-02-04 15:14:08 34.71 kg/m2 [facility] Systolic (mm Hg) 2016-05-08 15:18:00 Grady rial Alexx Systolic (mm Hg) 2016-05-08 14:30:00 Grady rial [place] Diastolic (mm Hg) 2016-05-08 14:30:00 Mem orial [place] Respitory Rate 2016-05-08 14:30:00 Memori al Alexx Heart Rate 2016-05-08 14:30:00 Memorial Alexx Respitory Rate 2016-05-08 14:20:00 Memori al [place] Systolic (mm Hg) 2016-05-08 14:20:00 Grady watson Alexx Heart Rate 2016-05-08 14:20:00 [facility] Alexx Respitory Rate 2016-05-08 14:10:00 Memori al [place] Temperature Oral (F) 2016-05-08 14:10:00 36.7 Yamileth [facility] Alexx Heart Rate 2016-05-08 14:10:00 [facility] [place] Weight 2016-05-08 13:21:00 Memorial [place]a Height 2016-05-08 13:21:00 184 cm [facility] Temperature Oral (F) 2016-05-08 13:21:00 37 Yamileth [facility] Weight 2016-05-04 15:41:00 [facility] Height 2016-05-04 15:41:00 182.8 cm [facility] Procedures Procedure Date / Time Performing Clinician Source Performed POC GLUCOSE 2020-02-06 12:05:00 [facility] POC GLUCOSE 2020-02-06 07:31:00 [facility] XR ABDOMEN 1 VW PORTABLE 2020-02-06 07:00:00 Augusto Bradleyist POC GLUCOSE 2020-02-06 05:10:00 [facility] HC COMPLETE BLD COUNT 2020-02-06 05:00:00 Beto Monet W/AUTO DIFF VANCOMYCIN LEVEL, RANDOM 2020-02-06 04:00:00 Micky Foster COMPREHENSIVE METABOLIC 2020-02-06 04:00:00 Beto Monet PANEL MAGNESIUM LEVEL 2020-02-06 04:00:00 Beto Monet PHOSPHORUS LEVEL 2020-02-06 04:00:00 Beto Monet VITAMIN D 1,25 DIHYDROXY 2020-02-06 04:00:00 Beto Monet LEVEL, SERUM ESTIMATED GFR 2020-02-06 04:00:00 [facility] HEPATITIS B SURFACE 2020-02-06 04:00:00 Elly Vicente ANTIGEN POC GLUCOSE 2020-02-05 23:09:00 Micky Foster [facility] POC GLUCOSE 2020-02-05 19:13:00 CristianMicky on [facility] RESPIRATORY PATHOGEN 2020-02-05 17:40:00 Elly Vicente [facility] PANEL WITH COVID-19 POC GLUCOSE 2020-02-05 17:11:00 CristianMicky on [facility] POC GLUCOSE 2020-02-05 12:03:00 Micky [facility] POC GLUCOSE 2020-02-05 07:56:00 Abelardo Brar Met jayme Lee XR ABDOMEN 1 VW PORTABLE 2020-02-05 06:40:00 Taffet, Beto Quiñonesist POC GLUCOSE 2020-02-05 06:17:00 CristianMicky pineda [facility] HC COMPLETE BLD COUNT 2020-02-05 05:12:00 Taffet, Beto mtz [facility] W/AUTO DIFF COMPREHENSIVE METABOLIC 2020-02-05 05:12:00 Taffet, Beto Montague PANEL FOLATE LEVEL 2020-02-05 05:12:00 Taffet, Beto Montague MAGNESIUM LEVEL 2020-02-05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 Appearance, UA (test code = Clear 5767-9) Specific gravity, UA (test code = 1.013 1.001-1.035 5811-5) pH, UA (test code = 5803-2) 5.0 5.0-8.5 Protein, UA (test code = 37247-8) 2+ Negative A Glucose, UA (test code = 36580-9) Negative Negative Ketones, UA (test code = 2514-8) Negative Negative Bilirubin, UA (test code = Negative Negative 5770-3) Blood, UA (test code = 5794-3) Small Negative A Nitrite, UA (test code = 5802-4) Negative Negative Urobilinogen, UA (test code = <2.0 <2.0 82354-6) Leukocyte esterase, UA (test code Negative Negative = 5799-2) WBC, UA (test code = 5821-4) 2 0- 1 /HPF H RBC, UA (test code = 29802-1) 1 0- 5 /HPF Bacteria, UA (test code = Few None seen 35942-7) Yeast, UA (test code = 68872-7) None seen Yeast with pseudohyphae, UA (test None seen code = 49091-1) Granular casts, UA (test code = 5 0- 1 /LPF H 5793-5) Lab Interpretation (test code = Abnormal 92543-8) [facility] drugs of abuse lbhosq2651-50-66 21:28:48 Test Item Value Reference Interpretation Comments Range Amphetamine screen, Negative urine (test code = 3349-8) Barbiturate screen, Positive A urine (test code = 3377-9) Benzodiazepine Negative screen, urine (test code = 3390-2) Cocaine screen, Negative urine (test code = 3397-7) Methadone Negative metabolite (EDDP), urine (test code = 42748-7) Opiates screen, Negative urine (test code = 3879-4) Oxycodone screen, Negative urine (test code = 26585-5) Phencyclidine Negative screen, urine (test code = 3936-2) Tricyclic screen, Negative urine (test code = 19689-7) Cannabinoid screen, Negative Drug scr een minimum urine (test code = concentra tion of 3427-2) detectabilityAm phetamines 1000 ng/mLBarbiturat es 200 ng/mLBe nzodiazepines 300 ng/mLCocaine 300 ng/mLMethadone 300 ng/mLOp iates 300 ng/mLOxycodone 300 ng/mLPh encyclidine 25 ng/mLCannabinoi ds 50 ng/mLTr icyclics 1000 ng/mLResults are from screen ing tests and should only be used for medical evaluat ion. Drug testing for leg al purposes requires defini tive (or confirmatory) t esting methods, which are available upon request. C ontact the laboratory if d efinitive testing is requ ired. Lab Interpretation Abnormal (test code = 38383-3) [facility] QuiñonesistUrine klocinl9766-69-07 21:11:48 Test Item Value Reference Range Interpretation Comments Urine culture (test SEE COMMENT Bacteriu nolvia screen code = 6255401) negative. [facility] MethodalfaThyroid stimulating myeudny0651-97-65 18:10:36 Test Item Value Reference Range Interpretation Comments TSH (test code = 3016-3) 2.80 0.27- 4.20 uIU/mL [facility] MethodistT4, yywg5587-53-50 18:10:35 Test Item Value Reference Range Interpretation Comments T4, free (test code = 3024-7) 0.8 ng/dL 0.9-1.7 L Lab Interpretation (test code = Abnormal 69024-1) [facility] MontagueLipase wmntv7192-00-29 18:04:41 Test Item Value Reference Range Interpretation Comments Lipase (test code = 3040-3) 12 U/L 13-60 L Lab Interpretation (test code = Abnormal 34227-2) [facility] TempleCreatine kinase, total (CPK)2020-02-04 18:04:39 Test Item Value Reference Range Interpretation Comments Creatine kinase (test code = 2157-6) 111 U/L 39-308 [facility] TempleB natriuretic zwphhhy2259-07-67 18:02:40 Test Item Value Reference Range Interpretation Comments BNP (test code = 51262-3) 129 pg/mL 0-100 H Lab Interpretation (test code = Abnormal 08105-8) [facility] MethodalfaPartial thromboplastin time, mbuuvalzu2160-35-40 17:51:42 Test Item Value Reference Range Interpretation Comments PTT (test code = 28.3 23.0- 36.0 [place] [address]-9) unfractionated heparin is61.0-112.0 se conds which corresponds to Anti-Xa0.3-0.7 U/ml. [facility] NuriaistProthrombin time with BKF4764-36-77 17:51:06 Test Item Value Reference Range Interpretation Comments Prothrombin time (test 15.1 11.5- 14.5 sec H code = 5902-2) INR (test code = 1.2 The Interna tional 37897-5) Normalized Rati o (INR) is a therapeuti c monitoring tool for patients who ar e stable on oral anticoagulant t herapy. An INR of 2.0-3 .0 is suggested for d eep vein thrombosis/pulm onary embolism. Lab Interpretation Abnormal (test code = 31856-0) [facility] QuiñonesistCT Abdomen Pelvis Wo Puwmtdxz2946-33-41 01:05:11Hm Interface, Radiology Results 11/29/2019 1:08 AM CDTExamination: CT ABDOMEN PELVIS WOCONTRASTClinical History: abd painComparison: None.Findings:CT scans are performed using radiation dose reduction techniques. Technical factors are evaluated and adjusted to ensure appropriate moderation of exposure. Automated dose management technology is applied to adjust radiation exposure while a chieving a diagnostic quality image. CT imaging was performed with iterative reconstruction techniques and/or automated exposure control to reduce radiation dose.CT scan of the abdomen and pelvis was performed without intravenous contrast.The liver, spleen, pancreas, gallbladder, and adrenal glands are unremarkable.Bilateral atrophic kidneys are noted. No hydronephrosis or urinary calculus is seen.The appendix is unremarkable. No bowel thickening or fat stranding is seen. No bowel dilatation is seen. Peritoneal dialysis catheter is noted in the pelvis.The visualized lung bases are clear.IMPRESSION:1. No acute abnormality identified in the abdomen or pelvis.[id number] Dnxmow7840-86-66 12:57:35SMely ramos CRNA 10/11/2019 1:00 PMAirwayDate/Time: 10/11/2019 12:25 PMPerformed by: Mely Teran CRNAAuthorized by: Estuardo Hodges MD Location: ORUrgency: ElectiveResident/HEATING MECHANIC/AA: Mely Teran CRNAPerformed by: resident/HEATING MECHANIC/AAPreoxygenated with 100% O2: Yes C-spine Precautions Maintained Throughout: Yes Mask Ventilation: Assisted mask (#10 OPA)Final Airway Type: Endotracheal airwayFinal Endotracheal Airway: ETTCuffed: Yes Technique Used: Video laryngoscopyIntubationdevice: Glidescope Stylet.Insertion Site: OralBlade type: Glidescope S-4.Laryngoscope Blade/Videolaryngoscope Blade Size: 4ETT Size (mm): 8.0Cuff at minimum occlusion pressure: Yes Measured from: LipsETT to Lips (cm): 23Placement Verified by: CO2 detection Number of Attempts at Approach: 1 Preoxygenation >3 minEyes taped at LOCEasy, gentle mask ventilation using #10 OPADL by Jeffry usingMiller 2, Grade 3 view obtainedDL by Carroll using MAC 3, Grade 2 view obtained, unable to intubateEasy intubation using Glidescope S-4Dentition unchanged and intact, small laceration noted to upper lipHouston MethodistPOC panel [id number] 12:02:35 Test Item Value Reference Range Interpretation Comments POC sodium (test code 140 mmol/L 135-148 = 2947-0) POC potassium (test 3.5 mmol/L 3.5-5 code = 6298-4) POC hematocrit (test 37 % 41-51 L code = 4544-3) POC glucose (test code 155 mg/dL 65-99 H Opera tor Name: = 2339-0) Nela Hunter Device ID: [id number] Lab Interpretation Abnormal (test code = 50116-1) [facility] MethodistBasic metabolic huyig6684-07-40 07:02:47 Test Item Value Reference Range Interpretation Comments Sodium (test code = 2951-2) 135 135- 148 mEq/L Potassium (test code = 2823-3) 3.6 3.5- 5.0 mEq/L Chloride (test code = 2075-0) 95 98- 112 mEq/L L CO2 (test code = 8-9) 25 24- 31 mEq/L Anion gap (test code = 11796-8) 15@ANIO 7- 15 mEq/L BUN (test code = 3094-0) 43 mg/dL 6-20 H Creatinine (test code = 2160-0) 5.34 mg/dL 0.7-1.2 H Glucose (test code = 2345-7) 282 mg/dL 65-99 H Calcium (test code = 03922-0) 8.4 mg/dL 8.3-10.2 Lab Interpretation (test code = Abnormal 24268-6) [facility] MethodistGlucose [id number] 14:52:59 Test Item Value Reference Range Interpretation Comments Glucose (test code = 2345-7) 193 mg/dL 65-99 H Lab Interpretation (test code = Abnormal 82766-8) [facility] MontagueHemoglobin & tracsxrkmu6592-54-85 22:34:27 Test Item Value Reference Range Interpretation Comments HGB (test code = 718-7) 8.2 g/dL 14-18 L HCT (test code = 4544-3) 24.1 % 41-51 L Lab Interpretation (test code = Abnormal 20105-4) [facility] MontagueIR Tunneled Dialysis Catheter Jhtvgxcbj6331-92-45 17:29:58Hm Interface, Radiology Results 07/27/2019 5:33 PM CDTPerforming Radiologist:Kodak Thayer MD Assistants:None. Anesthesia Type:Moderate sedation was administered by the procedure nurse and monitored intraservice aphu-dd-sgke by the procedure physician for 11 minutes. Lidocaine 1% and lidocaine 1% with epinephrine were used for local anesthetic. Pre Procedure Diagnosis:ESRDPost Procedure Diagnosis:Status post tunneled right internal jugular vein hemodialysis catheter placement. Procedure:Placement of a tunneled right internal jugular vein hemodialysis catheter. Technique:Written informedconsent was obtained prior to the procedure. All elements of maximal [...] and a micropuncture sheath system was then placed. Under ultrasound guidance, documentation of vessel patency, needle access with permanent recording, and reporting are performed followed by placement of a sheath in the right internal jugular vein. The inner dilator and guidewire were then removed, and a 0.035 inch stiff [...] long tip to cuff tunneled hemodialysis catheter was then deployed through a peel-away sheath. The catheter tip was placed in the right atrium under fluoroscopic guidance. All ports were tested and demonstrate adequate flow. The catheter was secured tothe skin using 2-0 Ethilon suture. The small venotomy incision was closed with Dermabond. The patient tolerated the procedure well. FluoroscopyKa,r = 5 mGyComplications:None. Specimens Removed:None. Est imated Blood Loss:Less than 2 mL. Blood/Blood Products Administered:None. Grafts/Implants:As described in the above report. Impression: Successful fluoroscopic-guided placement of a 19 cm long tip to cuff tunneled hemodialysis catheter via the right internal jugular vein. The catheter tip lies in the right atrium and is ready for use.[facility]-[id number] MethodistSedimentation rate 2019-07-27 08:45:32 Test Item Value Reference Range Interpretation Comments Sedimentation rate (test code = 91 0- 10 mm/hr H 19450-8) Lab Interpretation (test code = Abnormal 79874-6) [facility] MethodistTransthoracic Echocardiogram Complete, (w Contrast, Strain and 3D if needed)2019-07-26 16:06:00Interface, Radiology Results In - 07/26/2019 4:06 PM CDT Echocardiography Report [address] [place] [address] Pat.Name: CLARA LACKEY.ID: [id number].Date: 07/26/2019 Refer.MD: KLELEE BRUNER Exam Time: 2:52:00 PM Study Type:Routine Echo Height: 72in Weight: 266lb BSA: 2.41 m2 Age: 8 1960,58Y Sex: MALE BP: 152/68 HR: 75 bpm Sonogrphr: SUDHAKAR Cheney Pat. Stat.:Inpatient Room: [facility] Study Status:Final Echo Event ID:[id number] Order ID: [id number] Reason forStudy:HF; initial eval with symptomsHistory / Clinical:Chronic Renal Failure, Coronary Artery Disease ,Diabetes, HypertensionProcedures: 2D Echo, Colorflow Doppler, Portable ------SUMMARY: LV EF is normal.RV systolic function is normal.LV filling pressure is normal.Hepatic vein pressure is likely mildly elevated --------FINDINGS: LV: LV size is normal. There is mild concentric LV hypertrophy. LV EF is normal. Overall wall motion is normal.RV: RV size is normal. RV systolic function is normal.LA: LA size is normal.RA: RA size is normal.AO: Aortic root diameter is normal.STEPHANIE: Trace posterior pericardial effusion.AV: No structural AV abnormalities noted.MV: No structural MV abnormalities noted.PV: No structural PV abnormalities noted.TV: No structural TV abnormalities noted.Reynolds: LV relaxation is reduced, appropriate for age. LV filling pressure is normal. Hepatic vein pressure is likely mildly elevated Other: Insufficient TR jet to estimate PA systolic pressure. MEASUREMENTS: 2DParasternal [place] Ao An 2.1 cm LVPWd 1.5 cm Ao Rtd 3.4 cm Index 1.4 cm/m2 LA Ds 4.1 cm IVSd 1.4 cm RWT 0.58 LVIDd 5.1 cm Index 2.1 cm/m2 LV Mass 310 g (122-174) LVIDs 2.8 cm LVM Index 129 g/m2 LV%fs 45 % LVOT 1.9 cm LA Sng Plane LA Area 20 cm2 (8.8-23.4) LA Vol 53 ml Index 22 ml/m2 LA LngAx 6.5 cm RA SngPlane RA Vol 44 ml Index 18 ml/m2 RA LngAx 5.8 cm RA Area 17 cm2 (8.3-19.5)LVOT LVOT Area 2.9 cm2 07/26/2019:06 PMSu Charles Kang M.D.[facility] MethodistUrine eosinophils 2019-07-25 21:32:07 Test Item Value Reference Range Interpretation Comments Eosinophils, urine (test code = PRESENT A 42950-9) Lab Interpretation (test code = Abnormal 88874-3) [facility] MethodistHepatitis B core antibody [id number] 12:57:48 Test Item Value Reference Range Interpretation Comments Hepatitis B core total Ab (test Non-reactive Non-reactive code = 74004-1) [facility] MethodistHepatitis C prbbqvtc5335-20-19 12:57:48 Test Item Value Reference Range Interpretation Comments Hepatitis C Ab (test code = Non-reactive Non-reactive 00527-9) [facility] MethodistHepatitis B surface lnlvojkz1423-39-46 12:35:09 Test Item Value Reference Range Interpretation Comments Hepatitis B surface Ab (test Non-reactive Non-reactive code = 09649-1) [facility] FggxduihkDbhipyof9641-20-84 12:10:32 Test Item Value Reference Range Interpretation Comments Troponin (test code 0.038 ng/mL 0-0.04 In patie nts suspected = 29828-5) of having a jorge cardial infarction, cee wyatt with all other appro priate clinical measur es and actions includi ng ECG and other diagn ostics as appropriate, measure Ultra TnI at 0 hrs and at 3 hrs.Myocar dial infarction VERY LIKELYThe 0 hr TnI level is > 0.10 ng/mL -------- -------- -------- --------Myocard ial infarction LIKE LYThe 0 hr TnI level is > 0.04 ng/mL and 3 hr level is increased or de creased by at least 0.0 20 ng/mL -------- -------- -------- ---Myocardial infarction VERY UNLIKELYBoth th e 0 hr and 3 hr TnI le vels <= 0.04 ng/mL(with in normal limits) OR 0 hr is > 0.04 ng/mL and 3 hr is increased OR decreased by le ss than 0.020 ng/mL [facility] MethodistLipid [id number] 12:03:37 Test Item Value Reference Interpretation Comments Range Cholesterol (test 111 mg/dL <200 code = 2093-3) Triglycerides (test 103 mg/dL <150 code = 2571-8) HDL cholesterol 42 mg/dL >40 (test code = 2085-9) LDL cholesterol 51 mg/dL <100 Result obtai luzma by direct (test code = 2089-1) LDL austyn surement Lipid panel SeeBelow Total Cholester ol (mg/dL) interpretation (test < 200 code = 07853-8) Desirable 200-239 Borderline -high >=240 Hi gh Triglyceri kevin (mg/dL) <150 No rmal 150-199 Borderline-high 200-499 High >=500 Very high HDL Choles terol (mg/dL) <40 Low (male) < 40 Low (female) L DL Cholesterol (mg /dL) <100 Optimal 1 00-129 Near or above o ptimal 130-159 Borderline-high 160-189 High >=190 Very high Risk Cat ergories that modify LDL goals.Risk Catergories LDL goal (mg/dL )CHD and CHD risk equiva lent <100 (10-year risk >20%)Multiple ( 2+) risk factors < 130 (10-year risk = <20%)0-1 risk factors <160 (<10-ye ar risk) Defining levels of lipids in metabolic syndromeTriglyc erides > =150 mg/dLHDL Choles terol Men <40 mg/dL Women <40 mg/dL Non-HDL cholest yolis is a second target f or therapy in personswith high triglycerides ( >=200 mg/dL) [facility] MethodistXR Chest 1 Vw Uwkgzova6012-48-02 08:10:28Hm Interface, Radiology Results 07/25/2019 8:13 AM CDTEXAMINATION: XR CHEST 1 VW PORTABLECLINICAL HISTORY: sobCOMPARISON: None.IMPRESSION:1.Hazy opacities in the lung bases, most likely due to hypoinflation of the lungs/atelectasis. Cannot rule out superimposed infiltrate in the left lung base/retrocardiac region and if clinically indicated dedicated PA and lateral views could provide further assessment.2.Mediastinal contours and cardiac silhouette are unremarkable.3.No acute osseous abnormality.[id number] MethodistUric acid vuxrs7450-27-51 02:11:48 Test Item Value Reference Range Interpretation Comments Uric acid (test code = 3084-1) 10.0 mg/dL 3.4-7 H Lab Interpretation (test code = Abnormal 58482-8) [facility] LdyxzqcyfHBWZTHOMVF1983-42-02 14:28:78646Ebsxothg HermannLABMCMINNVILLETORY 2016-05-08 13:33:06676AopamxqyTexas Health Arlington [facility] Hospital
[2020-04-20] MEDS ORDERED: NA CHLORIDE 0.9% 1,000 ML ONE ×2 (09:18→09:27)
[2020-04-20] MEDS ORDERED: ONDANSETRON 4 MG/2 ML VIAL ONE ×3 (09:18→14:16)
--- NOTE | 2020-04-20 09:51 | RAD REPORT ---
EXAM DESCRIPTION: RAD - Chest Single View - 04/20/2020 9:34 am CLINICAL HISTORY: FEVER Chest pain. COMPARISON: Chest Single View dated 02/04/2020; CHEST SINGLE VIEW dated 04/23/2011; CHEST PA AND LAT 2 VIEW dated 05/27/1999 FINDINGS: Portable technique limits examination quality. The lungs are grossly clear. The heart is normal in size. No displaced fractures. IMPRESSION: No acute intrathoracic process suspected.
[2020-04-20 10:12] LABS: Absolute Lymphocytes (CBC) 0.2 K/uL (0.7-4.9); Basophils % 0.5 % (0-1.3); Lymphocytes % 2.8 % (15.3-44.8); MPV 7.4 fL (7.6-11.3); RBC Red Blood Cell Count 3.26 M/uL (4.33-5.43)
[2020-04-20 10:13] LABS: Protime INR 0.97
[2020-04-20 10:26] LABS: ALT/SGPT 34 U/L (12-78); AST/SGOT 21 U/L (15-37); Albumin 3.7 g/dL (3.4-5.0); Alkaline Phosphatase 158 U/L (45-117); Amylase 75 U/L (25-115); BUN Blood Urea Nitrogen 66 mg/dL (7-18); Bicarbonate 28 mmol/L (21-32); Bilirubin Direct < 0.1 mg/dL (0-0.2); Bilirubin Total 0.4 mg/dL (0.2-1.0); CKMB Creatine Kinase MB < 1.0 ng/mL (0.3-3.6); Creatine Phosphokinase 112 U/L (39-308); Glucose Level 143 mg/dL (74-106); Lipase 57 U/L (73-393); Potassium 3.1 mmol/L (3.5-5.1); Sodium Level 142 mmol/L (136-145); Troponin (Emerg Dept Use Only) < 0.02 ng/mL (0.0-0.045)
[2020-04-20 11:07] LABS: SARS-COV-2 RT PCR NEGATIVE (NEGATIVE)
[2020-04-20] MEDS ORDERED: VANCOMYCIN 1 GM/VIAL ONE (11:26)
[2020-04-20] MEDS ORDERED: NA CHLORIDE 0.9% 250 ML ONE (11:27)
--- NOTE | 2020-04-20 11:32 | RAD REPORT ---
EXAM DESCRIPTION: CT - Chest Abd Pelvis Wo Con - 04/20/2020 11:19 am CLINICAL HISTORY: Chest and abdomen pain. fever and PD patient COMPARISON: No comparisons TECHNIQUE: A limited noncontrast study was performed. All CT scans are performed using dose optimization technique as appropriate and may include automated exposure control or mA/KV adjustment according to patient size. FINDINGS: The lungs are clear.No pleural or pericardial effusion.No intrathoracic adenopathy. The liver, spleen, pancreas, adrenal glands and kidneys are within normal limits. No bowel obstruction, free air, free fluid or abscess. Normal appendix. Peritoneal dialysis catheter coils in the inferior pelvis. No pathologic lymphadenopathy in the abdomen or pelvis. No worrisome osseous finding. IMPRESSION: No acute abnormality is detected.
[2020-04-20 12:31] LABS: Blood Morphology Comment NOTED (NOT SEEN); Platelet Estimate ADEQ; Polychromasia 1+; White Blood Cell Scan OK (OK)
--- NOTE | 2020-04-20 12:57 | EDPHYS ---
Physician Documentation [facility] Name: Dg Camacho Age: 59 yrs Sex: Male : 1960 Arrival Date: 04/20/2020 Time: 08:44 Bed 7 Private MD: ED Physician Cortez Jordan HPI: 04/20 10:04 This 59 yrs old Male presents to ER via EMS with complaints of Fever, kdr Nausea/Vomiting. 10:04 The patient presents to the emergency department with nausea, that is mild, with "dry kdr heaves". Onset: The symptoms/episode began/occurred suddenly, this morning. Possible causes: unknown. The symptoms are aggravated by nothing. The symptoms are alleviated by nothing. Associated signs and symptoms: Pertinent positives: fever, Pertinent negatives: abdominal pain, anorexia, constipation, dysuria, GI bleeding. Historical: - Allergies: 08:46 PENICILLINS; ph - PMHx: 08:46 Diabetes - IDDM; Dialysis; ESRD; Hypertension; ph - Immunization history:: Adult Immunizations unknown. - Social history:: Smoking status: Patient denies any tobacco usage or history of. ROS: 14:15 Constitutional: Negative for weight loss - he has had fever and weight loss Eyes: kdr Negative for injury, pain, redness, and discharge, ENT: Negative for injury, pain, and discharge, Neck: Negative for injury, pain, and swelling, Cardiovascular: Negative for chest pain, palpitations, and edema, Respiratory: Negative for shortness of breath, cough, wheezing, and pleuritic chest pain, Back: Negative for injury and pain, : Negative for injury, bleeding, discharge, and swelling, MS/Extremity: Negative for injury and deformity, Skin: Negative for injury, rash, and discoloration, Neuro: Negative for headache, weakness, numbness, tingling, and seizure activity. Psych: Negative for depression, anxiety, suicide ideation, homicidal ideation, and hallucinations, Allergy/Immunology: Negative for hives, rash, and allergies, Endocrine: Negative for neck swelling, polydipsia, polyuria, polyphagia, and marked weight changes, Hematologic/Lymphatic: Negative for swollen nodes, abnormal bleeding, and unusual bruising. 14:15 Abdomen/GI: Positive for nausea and vomiting, flatulence, Negative for diarrhea, constipation, abdominal cramps, anorexia, dysphagia, hematemesis, black/tarry stool, rectal pain, rectal bleeding. Exam: 10:03 ECG was reviewed by the Attending Physician. kdr 14:15 Constitutional: This is a well developed, well nourished patient who is awake, alert, kdr and in no acute distress. Head/Face: Normocephalic, atraumatic. Eyes: Pupils equal round and reactive to light, extra-ocular motions intact. Lids and lashes normal. Conjunctiva and sclera are non-icteric and not injected. Cornea within normal limits. Periorbital areas with no swelling, redness, or edema. Neck: Trachea midline, no thyromegaly or masses palpated, and no cervical lymphadenopathy. Supple, full range of motion without nuchal rigidity, or vertebral point tenderness. No Meningismus. Chest/axilla: Normal chest wall appearance and motion. Nontender with no deformity. No lesions are appreciated. Cardiovascular: Regular rate and rhythm with a normal S1 and S2. No gallops, murmurs, or rubs. Normal PMI, no JVD. No pulse deficits. Respiratory: Lungs have equal breath sounds bilaterally, clear to auscultation and percussion. No rales, rhonchi or wheezes noted. No increased work of breathing, no retractions or nasal flaring. Back: No spinal tenderness. No costovertebral tenderness. Full range of motion. Skin: Warm, dry with normal turgor. Normal color with no rashes, no lesions, and no evidence of cellulitis. MS/ Extremity: Pulses equal, no cyanosis. Neurovascular intact. Full, normal range of motion. Neuro: Awake and alert, GCS 15, oriented to person, place, time, and situation. Cranial nerves II-XII grossly intact. Motor strength 5/5 in all extremities. Sensory grossly intact. Cerebellar exam normal. Normal gait. Psych: Awake, alert, with orientation to person, place and time. Behavior, mood, and affect are within normal limits. 14:15 Abdomen/GI: Inspection: obese Bowel sounds: diminished, in all quadrants, Palpation: soft, nontender, in all quadrants. Vital Signs: 08:47 BP 166 / 84; Pulse 107; Resp 18; Temp 100.8; Pulse Ox 99% on R/A; Pain 0/10; hb 10:45 BP 142 / 52; Pulse 91; Resp 16; Pulse Ox 98% on R/A; hb 11:30 BP 148 / 54; Pulse 81; Resp 16; Temp 99.7; Pulse Ox 98% on R/A; hb 12:30 BP 112 / 45; Pulse 75; Resp 15; Pulse Ox 97% on R/A; hb 14:00 BP 118 / 58; Pulse 74; Resp 15; Pulse Ox 99% on R/A; Pain 0/10; hb MDM: 12:57 Patient medically screened. kdr 14:17 Data reviewed: vital signs, nurses notes, lab test result(s), radiologic studies. kdr Counseling: I had a detailed discussion with the patient and/or guardian regarding: the historical points, exam findings, and any diagnostic results supporting the discharge/admit diagnosis, lab results, radiology results, the need for outpatient follow up. 04/20 08:58 Order name: Basic Metabolic Panel; Complete Time: 10:41 [facility] 04/20 08:58 Order name: CBC with Diff; Complete Time: 12:40 [facility] 04/20 08:58 Order name: Hepatic Function; Complete Time: 10:41 [facility] 04/20 08:58 Order name: Lipase; Complete Time: 10:41 [facility] 04/20 09:10 Order name: Amylase, Serum; Complete Time: 10:41 [facility] 04/20 09:10 Order name: Blood Culture Adult (2) kdr 04/20 09:10 Order name: Ckmb; Complete Time: 10:41 [facility] 04/20 09:10 Order name: CPK; Complete Time: 10:41 [facility] 04/20 09:10 Order name: Lactate; Complete Time: 10:41 [facility] 04/20 09:10 Order name: Procalcitonin; Complete Time: 11:39 [facility] 04/20 12:04 Interpretation: Procalcitonin 0.55. [facility] 04/20 09:10 Order name: Protime (+inr); Complete Time: 10:41 [facility] 04/20 09:10 Order name: Ptt, Activated; Complete Time: 10:41 [facility] 04/20 09:10 Order name: Troponin (emerg Dept Use Only); Complete Time: 10:41 [facility] 04/20 08:58 Order name: Labs collected and sent; Complete Time: 10:04 [facility] 04/20 09:10 Order name: Chest Single View XRAY; Complete Time: 10:41 [facility] 01/16 09:10 Order name: Accucheck; Complete Time: 10:06 kdr 04/20 09:10 Order name: Cardiac monitoring; Complete Time: 09:37 kdr 04/20 09:10 Order name: EKG - Nurse/Tech; Complete Time: 09:37 kdr 04/20 09:10 Order name: IV Saline Lock - Large Bore; Complete Time: 10:04 kdr 04/20 11:02 Order name: CT Chest Abdomen Pelvis W/O Contrast; Complete Time: 11:39 kdr 04/20 11:07 Order name: COVID-19/FLU A+B; Complete Time: 11:39 EDMS 04/20 12:31 Order name: CBC Smear Scan; Complete Time: 12:40 EDMS 04/20 09:10 Order name: O2 Per Protocol; Complete Time: 09:38 kdr 04/20 09:10 Order name: O2 Sat Monitoring; Complete Time: :38 kdr EC:03 Rate is 95 beats/min. Rhythm is regular, Normal Sinus Rhythm with No ectopy. QRS [place] kdr is Normal. [place] interval is normal. QRS interval is normal. QT interval is normal. Clinical impression: NSR w/ Non-specific ST/T Changes. Administered Medications: 10:00 Drug: NS 0.9% 1000 ml Route: IV; Rate: 1 bolus; Site: right upper arm; ph 10:00 Drug: Zofran (Ondansetron) 4 mg Route: IVP; Site: right upper arm; ph 11:28 Drug: vancoMYCIN 1 grams Route: IVPB; Infused Over: 2 hrs; Site: right antecubital; hb 13:31 Follow up: Response: No adverse reaction; IV Status: Completed infusion ph 13:34 Follow up: Response: No adverse reaction; IV Status: Completed infusion; IV Intake: hb 250ml 14:12 Drug: Potassium Chloride 40 mEq Route: PO; hb 14:12 Follow up: Response: Medication administered at discharge. hb Disposition: 04/20/20 12:57 Discharged to Home. Impression: Fever, unspecified, Viral infection, unspecified. - Condition is Fair. - Discharge Instructions: Nausea and Vomiting, Adult, [id number], Fever, Adult, [id number]. - Prescriptions for Zofran 4 mg Oral Tablet - take 1 tablet by ORAL route every 4-6 hours As needed; 16 tablet. - Medication Reconciliation Form, Thank You Letter form. - Follow up: Private Physician; When: 2 - 3 days; Reason: If symptoms return, Further diagnostic work-up, Recheck today's complaints, Continuance of care, Re-evaluation by your physician. - Problem is new. - Symptoms have improved. Signatures: Dispatcher [employer] [facility] Cortez Jordan MD MD kdr Charley Polanco RN RN ph Shae Campbell RN RN hb Corrections: (The following items were deleted from the chart) 10:04 08:58 IV Saline Lock ordered. kdr sv 10:15 08:47 CORONAVIRUS+MR.LAB.BRZ ordered. [facility] EDGA 10:16 09:15 Influenza Screen (A \\T\\ B)+BA.LAB.BRZ ordered. [facility] 14:14 12:57 04/20/2020 12:57 Discharged to Home. Impression: Fever, unspecified; Viral hb infection, unspecified. Condition is Fair. Forms are Medication Reconciliation Form, Thank You Letter, Antibiotic Education, Prescription Opioid Use. Follow up: Private Physician; When: 2 - 3 days; Reason: If symptoms return, Further diagnostic work-up, Recheck today's complaints, Continuance of care, Re-evaluation by your physician. Problem is new. Symptoms have improved. kdr
--- NOTE | 2020-04-20 12:57 | ER ---
Nurse's Notes [facility] Name: Dg Camacho Age: 59 yrs Sex: Male : 1960 Arrival Date: 04/20/2020 Time: 08:44 Bed 7 Private MD: Diagnosis: Fever, unspecified;Viral infection, unspecified Presentation: 04/20 08:47 Chief complaint: EMS states: Woke with nausea, became worse during peritoneal dialysis. hb Dry heaving upon arrival. T100.3. Zofran 4mg IM administered [employer]ACHINE [employer]. Coronavirus screen: nausea, vomiting. Client presents with at least one sign or symptom that may indicate coronavirus-19. Standard/surgical mask placed on the client. Provider contacted for isolation considerations. Ebola Screen: No symptoms or risks identified at this time. 08:47 Method Of Arrival: EMS: [facility] 08:47 Initial Sepsis Screen: Does the patient meet any 2 criteria? HR > 90 bpm. No. Patient's hb initial sepsis screen is negative. Does the patient have a suspected source of infection? No. Patient's initial sepsis screen is negative. Risk Assessment: Do you want to hurt yourself or someone else? Patient reports no desire to harm self or others. Onset of symptoms was April 20, 2020. 08:47 Acuity: LIZ 2 hb Triage Assessment: 08:50 General: Appears in no apparent distress. Behavior is calm, cooperative. Pain: Denies hb pain. EENT: No signs and/or symptoms were reported regarding the EENT system. Neuro: Level of Consciousness is awake, alert, obeys commands, Oriented to person, place, time, situation. Cardiovascular: Capillary refill < 3 seconds Patient's skin is warm and dry. Respiratory: Airway is patent Respiratory effort is even, unlabored, Respiratory pattern is regular, symmetrical. GI: Reports nausea, vomiting. : No signs and/or symptoms were reported regarding the genitourinary system. Derm: Skin is pink, warm \T\ dry. Musculoskeletal: No signs and/or symptoms reported regarding the musculoskeletal system. Historical: - Allergies: 08:46 PENICILLINS; ph - PMHx: 08:46 Diabetes - IDDM; Dialysis; ESRD; Hypertension; ph - Immunization history:: Adult Immunizations unknown. - Social history:: Smoking status: Patient denies any tobacco usage or history of. Screenin:48 Abuse screen: Denies threats or abuse. Denies injuries from another. Nutritional ph screening: No deficits noted. Tuberculosis screening: No symptoms or risk factors identified. Fall Risk None identified. Assessment: 08:56 General: see triage. hb 09:47 Reassessment: Unable to establish PIV. Charge Nurse Malou BLUE at bedside to attempt hb to establish access. 10:30 Reassessment: Patient appears in no apparent distress at this time. Patient and/or hb family updated on plan of care and expected duration. Pain level reassessed. Patient is alert, oriented x 3, equal unlabored respirations, skin warm/dry/pink. 11:42 Reassessment: Patient appears in no apparent distress at this time. Patient and/or hb family updated on plan of care and expected duration. Pain level reassessed. Patient is alert, oriented x 3, equal unlabored respirations, skin warm/dry/pink. 12:32 Reassessment: Patient appears in no apparent distress at this time. Patient and/or hb family updated on plan of care and expected duration. Pain level reassessed. Patient is alert, oriented x 3, equal unlabored respirations, skin warm/dry/pink. 12:57 Reassessment: Discharge pending completion of IV infusion. hb 14:00 Reassessment: Patient appears in no apparent distress at this time. Patient and/or hb family updated on plan of care and expected duration. Pain level reassessed. Patient is alert, oriented x 3, equal unlabored respirations, skin warm/dry/pink. Vital Signs: 08:47 BP 166 / 84; Pulse 107; Resp 18; Temp 100.8; Pulse Ox 99% on R/A; Pain 0/10; hb 10:45 BP 142 / 52; Pulse 91; Resp 16; Pulse Ox 98% on R/A; hb 11:30 BP 148 / 54; Pulse 81; Resp 16; Temp 99.7; Pulse Ox 98% on R/A; hb 12:30 BP 112 / 45; Pulse 75; Resp 15; Pulse Ox 97% on R/A; hb 14:00 BP 118 / 58; Pulse 74; Resp 15; Pulse Ox 99% on R/A; Pain 0/10; hb ED Course: 08:44 Patient arrived in ED. ph 08:44 Cortez Jordan MD is Attending Physician. kdr 08:46 Arm band placed on Patient placed in an exam room, on a stretcher. ph 08:46 Patient has correct armband on for positive identification. Bed in low position. Call ph light in reach. Side rails up X2. Side rails up X2. Pulse ox on. NIBP on. Door closed. Noise minimized. Warm blanket given. 08:49 Charley Polanco, RN is Primary Nurse. ph 08:50 Triage completed. hb 09:16 Missed attempt(s): 20 gauge in left antecubital area. Bleeding controlled, band aid dh3 applied, catheter tip intact. 09:34 Chest Single View XRAY In Process Unspecified. EDMS 09:34 EKG done, by ED staff, reviewed by Cortez Jordan MD. dh3 09:45 First set of blood cultures drawn by me. Missed attempt(s): 20 gauge in left forearm. sv Bleeding controlled, band aid applied, catheter tip intact. 09:55 Second set of blood cultures drawn by me. Inserted saline lock: 20 gauge in right upper sv arm, using aseptic technique. Blood collected. Flushed right with 5 ml normal saline. 10:28 Notified ED physician of a critical lab result(s). creatinine-11.0. sv 11:19 CT Chest Abdomen Pelvis W/O Contrast In Process Unspecified. EDMS 14:00 No provider procedures requiring assistance completed. IV discontinued, intact, ph bleeding controlled, No redness/swelling at site. Pressure dressing applied. Administered Medications: 10:00 Drug: NS 0.9% 1000 ml Route: IV; Rate: 1 bolus; Site: right upper arm; ph 10:00 Drug: Zofran (Ondansetron) 4 mg Route: IVP; Site: right upper arm; ph 11:28 Drug: vancoMYCIN 1 grams Route: IVPB; Infused Over: 2 hrs; Site: right antecubital; hb 13:31 Follow up: Response: No adverse reaction; IV Status: Completed infusion ph 13:34 Follow up: Response: No adverse reaction; IV Status: Completed infusion; IV Intake: hb 250ml 14:12 Drug: Potassium Chloride 40 mEq Route: PO; hb 14:12 Follow up: Response: Medication administered at discharge. hb Intake: 13:34 IV: 250ml; Total: 250ml. hb Outcome: 12:57 Discharge ordered by . kdr 14:14 Patient left the ED. hb 14:14 Condition: good ph 14:14 Discharged to home ambulatory. ph 14:14 Discharge instructions given to patient, Instructed on discharge instructions, follow up and referral plans. medication usage, Demonstrated understanding of instructions, follow-up care, medications, Prescriptions given X 1. Signatures: Dispatcher [employer] Malou Mcfadden RN RN Cortez Jordan MD MD kdr Hall, Patricia, RN RN Shae Campbell RN RN Libia Blount 3 Corrections: (The following items were deleted from the chart) 08:58 08:47 Chief complaint: EMS states: Woke with nausea, became worse during peritoneal hb dialysis. Dry heaving upon arrival. T100.3 hb 10:06 09:45 NS 0.9% 1000 ml IV at 1 bolus in right antecubital ph ph
[2020-04-20] MEDS ORDERED: POTASSIUM CL SA 10 MEQ TAB PO ONE (14:16)
[2020-04-20 14:33] VITALS: TEMP 99.7
[2020-04-20 14:35] VITALS: BP 118/58; O2SAT 99
== END 2020-04-20 14:14 | disposition home or self-care (01) ==
LOC: ER 08:43
DX: B34.9 Viral infection, unspecified (principal); Z20.822 Contact with and (suspected) exposure to COVID-19; E11.22 Type 2 diabetes mellitus with diabetic chronic kidney disease; I12.0 Hypertensive chronic kidney disease with stage 5 chronic kidney disease or end stage renal disease; N18.6 End stage renal disease; Z99.2 Dependence on renal dialysis; Z88.0 Allergy status to penicillin
CPT/HCPCS: 96365; 93005; 87040 ×2; 85025; 80048; 36415; 82150; 82550; 85610; 80076; 83605; 85730; 84484; 82553; 83690; 84145; 0240U; 71250; 74176; 71045; 96375; 99284; 96366; J3370; J7050; J7030 ×2; J2405 ×3

== ENCOUNTER 2020-10-20 05:36 | Emergency (ER) | payer OTHER ==
--- OUTSIDE RECORDS SUMMARY | 2020-10-20 05:40 | XMS REPORT | Continuity of Care Document ---
:1960 [facility] t Address [address] [place] [address] Care Team Providers Name Role Phone Mikayla LEONARD Primary Care Physician Vic BLUE Attending Clinician Unavailable Roseann STALEY Attending Clinician Unavailable Tuan Degroot MD Attending Clinician Dustin Attending Clinician Unavailable Walter Russo MD Attending Clinician Juliocesar Alcocer MD Attending Clinician Kathie Attending Clinician Unavailable Fabiana Cotton MA Attending Clinician Unavailable Jesus Brar MD Attending Clinician Lennox Foster MD Attending Clinician MD LENNOX FOSTER Attending Clinician Unavailable Chang Pham MD Attending Clinician SANDI Attending Clinician Unavailable MD MARKOS JUNIOR Attending Clinician Unavailable TARUN Attending Clinician Unavailable MD Divya MCNEIL Attending Clinician Unavailable VALENTÍN Attending Clinician Unavailable MAYKEL Admitting Clinician Unavailable MD JESUS BRAR Admitting Clinician Unavailable SANDI Admitting Clinician Unavailable MD MARKOS JUNIOR Admitting Clinician Unavailable TARUN Admitting Clinician Unavailable MD Divya MCNEIL Admitting Clinician Unavailable VALENTÍN Admitting Clinician Unavailable Payers Payer Name Policy Type Policy Effective Expiration Source Number Date Date [facility] [id number] 2020 [place] CHOICE/CHOICE 00:00:00 Confucianism [id number] 2020-Prese ntHMO/PPO [employer] MNGD [id number] 2020 Dawna santillan CAREOPTUM TXP VESNA 00:00:[address] [id number] esentTransplant Problems Condition Condition Condition Status Onset Resolution Last Treating Co mments Source Name Details Category Date Date Treatment Clinician Date Long-term Long-term Problem Active Eric edward current Current 5-25 Family use of Use of 00:00: Practic insulin Insulin 00 e Morbid Morbid Problem Active [place] obesity Obesity 2-22 Family 00:00: Practic 00 e Sepsis Sepsis Disease Active 2019-04 [facility] 04-05 Methodi 00:00: st 00 Peritoneal Peritoneal Disease Active 2019-04 [place] dialysis dialysis 04-05 Method i catheter catheter 00:00: st infection infection 00 ESRD (end ESRD (end Disease Active Dawna santillan stage stage 6-08 Methodi renal renal 00:00: st disease) disease) 00 (HCC) 2020 (HCC) 2020 TTS TTS Type 1 Type 1 Problem Active [facility] diabetes Diabetes 4-30 Family mellitus Mellitus 00:00: Practi c 00 e Essential Essential Problem Active Eric leon hypertensi Hypertensi 4-30 Fa kate on on 00:00: Practic 00 e End-stage End-stage Problem Active Eric villalbae renal Renal 4-30 Family disease Disease 00:00: [...] 00 e 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 1-25 Family 00:00: Practic 00 e General General Problem Active 2018-04 [facility] finding of Finding of 1-25 Fa kate observatio Observatio 00:00: Pr actic n of n of 00 e patient Patient Malignant Malignant Disease Active 2018-04 Dawna santillan hypertensi hypertensi 1-21 Me thodi on on 00:00: st 00 Hypertensi Hypertensi Disease Active 2018-04 [place] ve crisis ve crisis 1-21 Meth vanessa 00:00: st 00 Class 2 Class 2 Disease Active 2018-04 [place] obesity in obesity in 1-10 Me thodi adult adult 00:00: st 00 Mixed Mixed Disease Active 2018-04 [place] hyperlipid hyperlipid 1-10 Me thodi emia emia 00:00: st 00 Type 2 Type 2 Disease Active 2018-04 [place] diabetes diabetes 04-13 Method i mellitus mellitus 00:00: st without without 00 complicati complicati on, with on, with long-term long-term current current use of use of insulin insulin Essential Essential Disease Active 2018-04 Dawna santillan hypertensi hypertensi - Me thodi on on 00:00: st 00 Iron Iron Disease Active 2018-04 [place] deficiency deficiency - Me thodi anemia anemia 00:00: st 00 JANN JANN Disease Active 2018-04 [place] (obstructi (obstructi 04-13 Me thodi ve sleep ve sleep 00:00: st apnea) apnea) 00 Hypothyroi Hypothyroi Disease Active 2018-04 [place] dism dism - Methodi 00:00: st 00 Depressive Depressive Problem Active V ill[facility] disorder Disorder 5-09 Family 00:00: Practic 00 e Hyperlipid Hyperlipid Problem Active V illage emia emia 4-23 Family 00:00: Practic 00 e Chronic Chronic Problem Active [facility] kidney Kidney 1-22 Family disease Disease 00:00: Practic 00 e Diabetes Problem 2016-05-10 Mem oria mellitus 05:01:48 l (disorder) Diabetes He rmann mellitus (disorder) Problem 05/10/2016 [facility] [place] Gastroesop Problem 2016-05-10 M emoria hageal 05:01:48 l reflux Alexx disease Gastroesop (disorder) hageal reflux disease (disorder) Problem 05/10/2016 [facility] [place] Allergies, Adverse Reactions, Alerts Allergy Allergy Status Severity Reaction(s) Onset Inactive Treating Comm ents Source Name Type Date Date Clinician Penicill Propensi Active Other (See 2008- Allergy H regine ins ty to Comments) 3-10 as a Methodi adverse 00:00: child st reaction 00 s to drug penicill penicill Active Memori a in in melita Coffey PENICILL Allergy Active [place] IN to Family substanc Practic e e PENICILL Allergy Active [place] INS to Family substanc Practic e e Family History Family Member Diagnosis Comments Start Date Stop Date Source Natural brother Diabetes Gonzalez Jung ethodist Natural father Cancer Gonzalez Tang thodist Natural mother Cancer Gonzalez Tang thodist Natural mother Heart disease Gonzalez Montague Social History Social Habit Start Date Stop Date Quantity Comments Source History of Cigarette smoker [facility] Confucianism tobacco [facility] (finding) [facility]inks [facility] Alcohol Binge Tobacco use and 2020-09-09 2020-09-09 Former user [facility] Confucianism exposure 00:00:00 00:00:00 Alcohol intake 2020-09-09 2020-09-09 Lifetime Gonzalez Tang thodist 00:00:00 00:00:00 non-drinker (finding) History SDOH 2019-10-11 2019-10-11 1 [facility] Meth odist Alcohol Frequency 00:00:00 00:00:00 Tobacco Comment 2019-10-10 2019-10-10 smokeless tobacco Ho usmarc Confucianism 00:00:00 00:00:00 stopped 02/2019 [birth year] Gonzalez Jung ethodist 00:00:00 00:00:00 Smoking Status Start Date Stop Date Source Never smoker Gonzalez Quiñonesis t Medications Ordered Filled Start Stop Current Ordering Indication Dosage Frequency Signature Comments Components Source Medication Medication Date Date Medication? Clinician (SIG) Name Name allopurinoL Yes 100mg QD Take 100 [place] (ZYLOPRIM) 5-20 mg by Methodi 100 MG 09:44: mouth st tablet 51 daily. INSULIN Yes Inject [facility] SUBCUTANEOU 5-20 under the Met hodi S PUMP, 09:44: skin st HUMALOG, 51 continuous 100 ly. Uses ` UNITS/ML 23 units INSULIN in a 24 PUMP hour INFUSION period (HumaLOG) doxazosin Yes 4mg Q.5D Take 4 mg Dawna ston (CARDURA) 4 5-20 by mouth 2 Me thodi MG tablet 09:44: (two) st 51 times a day. atorvastati Yes 40mg QD Take 40 mg Roth n (LIPITOR) 5-20 by mouth Meth vanessa 40 MG 09:44: nightly. st tablet 51 losartan 2020-0 Yes 100mg QD Take 100 [place] (COZAAR) 5-20 mg by Methodi 100 MG 09:44: mouth st tablet 51 nightly. sevelamer 2020-0 Yes 800mg [id number] Take 800 [facility] (RENAGEL) 5-20 [id number] mg by Met hodi 800 MG 09:44: 3D mouth 3 st tablet 51 (three) times a day with meals. furosemide 2020-0 Yes 80mg Q.5D Take 80 mg [place] (LASIX) 80 5-20 by mouth 2 Met hodi mg tablet 09:44: (two) st 51 times a day. famotidine 2020-0 Yes Q.5D Take by [place] (PEPCID AC 5-20 mouth 2 Method i MAXIMUM 09:44: (two) st STRENGTH 51 times a ORAL) day. carvediloL 2020-0 Yes 12.5mg Q.5D Take 12.5 [facility] (COREG) 5-20 mg by Methodi 12.5 MG 09:44: mouth 2 st tablet 51 (two) times a day with meals. NIFEdipine 2020-0 Yes 30mg Q.5D Take 30 mg [place] XL 5-20 by mouth 2 Methodi (PROCARDIA 09:44: (two) st XL) 30 MG 51 times a 24 hr day. tablet ergocalcife 2020-0 Yes [id number] Q7D Take [place] rol 3-05 50,000 Methodi (VITAMIN 11:10: Units by st D2) 50,000 09 mouth once unit a week. capsule FLUoxetine 2020-0 Yes 10mg QD Take 10 mg [place] (PROzac) 10 3-05 by mouth Meth vanessa MG capsule 11:09: daily. st 52 albuterol 2020-0 Yes 2.5mg Q4H Take 2.5 Dawna ston (ACCUNEB) 3-05 mg by Methodi 2.5 mg /3 11:09: nebulizati st mL (0.083 52 on every 4 %) (four) nebulizer hours as solution needed for wheezing. ALPRAZolam 2020-0 Yes .5mg Take 0.5 Dawna ston (XANAX) 0.5 3-05 mg by Methodi MG tablet 11:09: mouth as st 52 needed for anxiety. vit B Yes 1{tbl} QD Take 1 [facility] complex-vit 3-05 tablet by Met alex [place] 11:09: mouth st C-folic 52 daily. acid (NEPHRO-VIT E OTC) 0.8 mg tablet ondansetron Yes 4mg Q8H Take 4 mg [place] (ZOFRAN) 4 3-05 by mouth Metho di MG tablet 11:09: every 8 st 52 (eight) hours as needed for nausea or vomiting. minimed minimed No minimed Vill age guardian guardian 04-15 guardian Fam marielle sensor 3 sensor 3 00:00: sensor 3 P ractic misc misc 00 misc e diltiazem 2019-04- No 360mg Take 360 [place] (TIAZAC) 04-07-03 mg by Methodi 360 MG 24 16:49: 00:[address] hr capsule 29 :00 valsartan 2019-04- No 320mg QD Take 320 [place] (DIOVAN) 04-07 11-03 mg by Methodi 320 MG 16:49: 00:[address] tablet 29 :00 daily. polyethylen 2019-04 Yes 17g Q24H Take 17 g [place] e glycol 03 by mouth Methodi (MIRALAX) 00:00: daily as st 17 gram 00 needed for packet constipati on. docusate 2019-04- No 100mg Q.5D Take 1 [place] sodium 04-07 capsule Methodi (Colace) 00:00: 23:59 ([address] 100 MG 00 :00 total) by capsule mouth 2 (two) times a day for 30 days. psyllium 2019-04- No .52g QD Take 1 [place] (Metamucil) 04-07 capsule Meth vanessa 0.52 gram 00:00: 23:59 (0.[address] capsule 00 :00 total) by mouth daily for 30 days. doxycycline 2019-04 2020- No 100mg Q.5D Take 1 [place] (VIBRAMYCIN 04-0708 capsule Meth vanessa ) 100 MG 00:00: 23:59 ([address] capsule 00 :00 total) by mouth 2 (two) times a day with meals for 5 days. valsartan 2019-04- No 320mg QD Take 320 [place] (DIOVAN) 04-06 11-02 mg by Methodi 320 MG 11:36: 00:[address] tablet 07 :00 daily. tamsulosin 2020- No .4mg QD Take 1 [place] (Flomax) 10-11 08-08 capsule Methodi 0.4 mg 00:00: 23:59 (0.[address] capsule 00 :00 total) by mouth daily for 30 days. Misc No Alex 105 mL, Memoria Medication 2-03 Quan Soln-IV, l 14:17: IV, Once, first dose 05/08/16 8:17:00 GEODETIC ADVISOR, stop date 05/08/16 8:17:00 GEODETIC ADVISOR propofol No Alex 60 mg = 6 Mem oria 2-03 Quan mL, l 14:11: Emulsion, [place] 00 IV, Once, first dose 05/08/16 8:11:00 GEODETIC ADVISOR, stop date 05/08/16 8:11:00 GEODETIC ADVISOR propofol No Alex 80 mg = 8 Mem oria 2-03 Quan mL, l 14:06: Emulsion, [place] 00 IV, Once, first dose 05/08/16 8:06:00 GEODETIC ADVISOR, stop date 05/08/16 8:06:00 GEODETIC ADVISOR lidocaine No Alex 2 mL, Memori a 2- Quan Injection, l 14:01: IV, Once, first dose 05/08/16 8:01:00 GEODETIC ADVISOR, stop date 05/08/16 8:01:00 GEODETIC ADVISOR propofol No Alex 160 mg = Grady nolvia - Quan 16 mL, l 14:01: Emulsion, [place] 00 IV, Once, first dose 05/08/16 8:01:00 GEODETIC ADVISOR, stop date 05/08/16 8:01:00 GEODETIC ADVISOR LR 1,000 mL Alisa Gifford 1,000 mL, Georgette 05-08 Efren LEONARD IV, 30 l 13:24: mL/hr, [place] 00 start date 05/08/16 7:24:00 GEODETIC ADVISOR Lidocaine Alisa Gifford 0.2 mL, Grady nolvia 2% 0.2 mL 05-08 Efren LEONARD Injection, l IV Start 13:24: Subcutaneo Her downey [[facility]] 00 us, Once PRN for other (see comment), first dose 05/08/16 7:24:00 GEODETIC ADVISOR Patient's Yes See [facility] Own Med 30 Instructio l Insulin 15:52: ns, [place] 00 INSULIN PUMP, 0 Refill(s)I NSULIN PUMP hydroCHLORO Yes 1 tabs, Mem oria thiazide-lo 30 Oral, l sartan 25 15:51: Daily, 0 Herm chace mg-100 mg 00 Refill(s), oral tablet HTN furosemide Yes 20 mg = 1 Me moria 20 mg oral 1-30 tabs, l tablet 15:50: Oral, [place] 00 Daily, 0 Refill(s), HTN FLUoxetine Yes 10 mg = 1 Me moria 10 mg oral 1-30 tabs, l tablet 15:50: Oral, [place] 00 Daily, 0 Refill(s), DEPRESSIVE carvedilol Yes [...] oral 1-30 tabs, l tablet 15:49: Oral, [place] 00 Daily, 0 Refill(s), HTN albuterol albuterol No albuterol [facility] sulfate 2.5 sulfate 2.5 sulfate Family mg/3 mL mg/3 mL 2.5 mg/3 Pract ic (0.083 %) (0.083 %) mL (0.083 e solution solution %) for for solution nebulizatio nebulizatio for n n nebulizati on allopurinol allopurinol No allopurino [facility] 100 mg 100 mg l 100 mg Family tablet TAKE tablet TAKE tablet Practic 1 TABLET BY 1 TABLET BY TAKE 1 e MOUTH ONCE MOUTH ONCE TABLET BY DAILY DAILY MOUTH ONCE DAILY alprazolam alprazolam No alprazolam [facility] 0.5 mg 0.5 mg 0.5 mg Family tablet tablet tablet Practic e atorvastati atorvastati No atorvastat [facility] n 40 mg n 40 mg in 40 mg Famil y tablet Take tablet Take tablet Practic 1 tablet 1 tablet Take 1 e every day every day tablet by oral by oral every day route at route at by oral bedtime for bedtime for route at 90 days. 90 days. bedtime for 90 days. butalbital- butalbital- No 1capsul Q1D butalbital [facility] acetaminoph acetaminoph e(s) -acetamino Family en-caffeine en-caffeine [...] needed for 7 days. carvedilol carvedilol No carvedilol [facility] 12.5 mg 12.5 mg 12.5 mg Family tablet TAKE tablet TAKE tablet Practic 1 TABLET BY 1 TABLET BY TAKE 1 e MOUTH TWICE MOUTH TWICE TABLET BY DAILY DAILY MOUTH TWICE DAILY carvedilol carvedilol No carvedilol [facility] 25 mg 25 mg 25 mg Family tablet tablet tablet Practic e Contour Contour No Contour Villag e Next Test Next Test Next Test Family Strips Take Strips Take Strips Practic 5 strips 5 strips Take 5 e every day every day strips by miscell. by miscell. every day route as route as by directed directed miscell. for 90 for 90 route as days. days. directed for 90 days. Dialyvite Dialyvite No Dialyvite [place] 800 1 qd 800 1 qd 800 1 qd Fam marielle Practic e DOK 100 mg DOK 100 mg No DOK 100 mg [facility] capsule TK capsule TK capsule TK Family ONE C PO ONE C PO ONE C PO Pra ctic BID FOR 30 BID FOR 30 BID FOR 30 e DAYS DAYS DAYS doxazosin 4 doxazosin 4 No doxazosin [place] mg tablet mg tablet 4 mg Famil y TAKE 1 TAKE 1 tablet Practic TABLET BY TABLET BY TAKE 1 e MOUTH TWICE MOUTH TWICE TABLET BY DAILY DAILY MOUTH TWICE DAILY ergocalcife ergocalcife No ergocalcif [facility] rol rol yolis Family (vitamin (vitamin (vitamin Pra ctic D2) 1,250 D2) 1,250 D2) 1,250 e mcg (50,000 mcg (50,000 mcg unit) unit) (50,000 capsule capsule unit) TAKE 1 TAKE 1 capsule CAPSULE BY CAPSULE BY TAKE 1 MOUTH ONCE MOUTH ONCE CAPSULE BY A WEEK A WEEK MOUTH ONCE A WEEK famotidine famotidine No 2 Q1D famotidine [facility] 20 mg 20 mg 20 mg Family tablet Take tablet Take tablet Practic 2 tablets 2 tablets Take 2 e every day every day tablets by oral by oral every day route as route as by oral directed. directed. route as directed. furosemide furosemide No furosemide [place] 80 mg 80 mg 80 mg Family tablet TAKE tablet TAKE tablet Practic 2 TABLETS 2 TABLETS TAKE 2 e BY MOUTH BY MOUTH TABLETS BY ONCE DAILY ONCE DAILY MOUTH ONCE DAILY gentamicin gentamicin No gentamicin [facility] 0.1 % 0.1 % 0.1 % Family topical topical topical Practi c cream APPLY cream APPLY cream e TO EXIT TO EXIT APPLY TO SITE D SITE D EXIT SITE D guardian guardian No guardian Eric edward sensor 3 sensor 3 sensor 3 Fam marielle misc misc misc Practic e Humalog Humalog No Humalog Villag e U-100 U-100 U-100 Family Insulin 100 Insulin 100 Insulin Practic unit/mL unit/mL 100 e subcutaneou subcutaneou unit/mL s solution s solution subcutaneo USE WITH USE WITH us INSULIN INSULIN solution PUMP TOTAL PUMP TOTAL USE WITH DAILY DOSE DAILY DOSE INSULIN 100 100 PUMP TOTAL DAILY DOSE 100 losartan losartan No losartan Eric edward 100 mg 100 mg 100 mg Family tablet TAKE tablet TAKE tablet Practic 1 TABLET BY 1 TABLET BY TAKE 1 e MOUTH ONCE MOUTH ONCE TABLET BY DAILY DAILY MOUTH ONCE DAILY metolazone metolazone No metolazone [place] 5 mg tablet 5 mg tablet 5 mg F amily TAKE 1 TAKE 1 tablet Practic TABLET BY TABLET BY TAKE 1 e MOUTH ONCE MOUTH ONCE TABLET BY DAILY IF DAILY IF MOUTH ONCE NEEDED ( NEEDED ( DAILY IF FOR SEVERE FOR SEVERE NEEDED ( SWELLING OR SWELLING OR FOR SEVERE SHORTNESS SHORTNESS SWELLING OF BREATH) OF BREATH) OR SHORTNESS OF BREATH) Minimed Minimed No Minimed Villag e Infusion Infusion Infusion Fam marielle Set USE Set USE Set USE Practi c WITH WITH WITH e INSULIN INSULIN INSULIN PUMP PUMP PUMP DIRECTED . DIRECTED . DIRECTED . CHANGE CHANGE CHANGE EVERY 2 EVERY 2 EVERY 2 DAYS DAYS DAYS mupirocin 2 mupirocin 2 No mupirocin [place] % topical % topical 2 % Famil y ointment ointment topical Prac tic APPLY APPLY ointment e OINTMENT OINTMENT APPLY EXTERNALLY EXTERNALLY OINTMENT TO ACCESS TO ACCESS EXTERNALLY SITE ONCE SITE ONCE TO ACCESS DAILY DAILY SITE ONCE DAILY nifedipine nifedipine No nifedipine [facility] ER 30 mg ER 30 mg ER 30 mg Fam marielle tablet,exte tablet,exte tablet,ext Practic nded nded ended e release 24 release 24 release 24 hr TAKE 1 hr TAKE 1 hr TAKE 1 TABLET BY TABLET BY TABLET BY MOUTH TWICE MOUTH TWICE MOUTH DAILY DAILY TWICE DAILY ondansetron ondansetron No ondansetro [facility] HCl 4 mg HCl 4 mg n HCl 4 mg F amily tablet TAKE tablet TAKE tablet Practic 1 TABLET BY 1 TABLET BY TAKE 1 e MOUTH EVERY MOUTH EVERY TABLET BY 4 TO 6 4 TO 6 MOUTH HOURS HOURS EVERY 4 TO NEEDED NEEDED 6 HOURS FORNAUSEA FORNAUSEA NEEDED AND AND FORNAUSEA VOMITING VOMITING AND VOMITING Paradigm Paradigm No Paradigm Eric edward [place] 3 [place] 3 [place] Family mL USE WITH mL USE WITH 3 mL USE Practic MEDTRONIC MEDTRONIC WITH e INSULIN INSULIN MEDTRONIC PUMP, PUMP, INSULIN CHANGE CHANGE PUMP, EVERY 2 EVERY 2 CHANGE DAYS DAYS EVERY 2 DAYS [facility] e 25 mg ne 25 mg Famil y tablet TAKE tablet TAKE tablet Practic 1 TABLET BY 1 TABLET BY TAKE 1 e MOUTH EVERY MOUTH EVERY TABLET BY 6 HOURS 6 HOURS MOUTH NEEDED FOR NEEDED FOR EVERY 6 NAUSEA NAUSEA HOURS NEEDED FOR NAUSEA Senokot-S 1 Senokot-S 1 No Senokot-S [place] qd qd 1 qd Family Practic e sevelamer sevelamer No [facility] carbonate carbonate carbonate Family 800 mg 800 mg 800 mg Practic tablet Take tablet Take tablet e 1 tablet as 1 tablet as Take 1 needed by needed by tablet as oral route oral route needed by as as oral route directed. directed. as directed. SIMPLECHOIC SIMPLECHOIC No 45set(s SIMPLECHOI [place] E quick E quick ) CE quick Famil y Q-23-5 Q-23-5 Q-23-5 Practic infusion infusion infusion e set Take 45 set Take 45 set Take sets every sets every 45 sets 3 months by 3 months by every 3 miscell. miscell. months by route as route as miscell. directed. directed. route as directed. tramadol 50 tramadol 50 No tramadol [place] mg tablet mg tablet 50 mg Fami ly TAKE 1 TAKE 1 tablet Practic TABLET BY TABLET BY TAKE 1 e MOUTH EVERY MOUTH EVERY TABLET BY 4 TO 6 4 TO 6 MOUTH HOURS HOURS EVERY 4 TO NEEDED FOR NEEDED FOR 6 HOURS PAIN PAIN NEEDED FOR PAIN triamcinolo triamcinolo No triamcinol [facility] ne one Family acetonide acetonide acetonide Practic 0.1 % 0.1 % 0.1 % e topical topical topical cream APPLY cream APPLY cream CREAM CREAM APPLY EXTERNALLY EXTERNALLY CREAM TO RASH TO RASH EXTERNALLY TWICE DAILY TWICE DAILY TO RASH TWICE DAILY Immunizations Ordered Immunization Filled Immunization Date Status Commen ts Source Name Name SARS-COV-2 SARS-COV-2 2020-04-05 Completed [facility] (COVID-19) vaccine, (COVID-19) vaccine, 00:00:00 Practice UNSPECIFIED UNSPECIFIED tetanus toxoid, tetanus toxoid, 2018-04-[address] [facility] Family unspecified unspecified 00:00:00 Practice formulation formulation pneumococcal pneumococcal 2018-04-05 Completed [facility] Fa kate conjugate PCV 13 conjugate PCV 13 00:00:00 Pr actice Vital Signs Vital Name Observation Time Observation Value Comments Source BP Diastolic 2020-08-27 00:00:00 74 mm[Hg] [facility] Height 2020-08-27 00:00:00 72 [in_i] [facility] BMI (Body Mass 2020-08-27 00:00:00 35.8 kg/m2 [facility] Family Index) Practice BP Systolic 2020-08-27 00:00:00 143 mm[Hg] [facility] Body Weight 2020-08-27 00:00:00 264 [lb_av] [facility] BP Diastolic 2020-05-27 00:00:00 67 mm[Hg] [facility] Height 2020-05-27 00:00:00 72 [in_i] [facility] BMI (Body Mass 2020-05-27 00:00:00 36.5 kg/m2 [facility] e Family Index) Practice BP Systolic 2020-05-27 00:00:00 107 mm[Hg] [facility] Body Weight 2020-05-27 00:00:00 269.2 [lb_av] [facility] BP Diastolic 2020-04-15 00:00:00 65 mm[Hg] [facility] Height 2020-04-15 00:00:00 72 [in_i] [facility] BMI (Body Mass 2020-04-15 00:00:00 36.4 kg/m2 [facility] Family Index) Practice BP Systolic 2020-04-15 00:00:00 125 mm[Hg] [facility] Body Weight 2020-04-15 00:00:00 268.6 [lb_av] [facility] BP Diastolic 2020-01-05 00:00:00 62 mm[Hg] [facility] Height 2020-01-05 00:00:00 72 [in_i] [facility] BMI (Body Mass 2020-01-05 00:00:00 35.1 kg/m2 [facility] Family Index) Practice BP Systolic 2020-01-05 00:00:00 128 mm[Hg] [facility] Body Weight 2020-01-05 00:00:00 258.8 [lb_av] [facility] Body weight 2020-09-09 08:24:00 118.842 kg [facility]ian[facility] BMI 2020-09-09 08:24:00 37.59 kg/m2 [facility]uc[facility] Systolic blood 2020-09-09 08:15:00 168 mm[Hg] [facility] Confucianism pressure Diastolic blood 2020-09-09 08:15:00 74 mm[Hg] [facility] Confucianism pressure Heart rate 2020-09-09 08:15:00 71 /min [place] Confucianism Body temperature 2020-08-22 07:27:00 36.28 Yamileth [facility] ton Confucianism Respiratory rate 2020-08-22 07:27:00 17 /min [place] [facility] Body height 2020-08-22 07:27:00 177.8 cm [place] Confucianism Oxygen saturation in 2020-08-22 07:27:00 99 /min [place] Confucianism Arterial blood by Pulse oximetry Systolic (mm Hg) 2016-05-08 15:18:00 Grady walter [place] Systolic (mm Hg) 2016-05-08 14:30:00 Grady rial [place] Diastolic (mm Hg) 2016-05-08 14:30:00 Mem orial [place] Respitory Rate 2016-05-08 14:30:00 Memori al [place] Heart Rate 2016-05-08 14:30:00 [facility] Respitory Rate 2016-05-08 14:20:00 Memori al [place] Systolic (mm Hg) 2016-05-08 14:20:00 Grady walter [place] Heart Rate 2016-05-08 14:20:00 [facility] Respitory Rate 2016-05-08 14:10:00 Memori al [place] Temperature Oral (F) 2016-05-08 14:10:00 36.7 Yamileth [facility] Heart Rate 2016-05-08 14:10:00 [facility] Weight 2016-05-08 13:21:00 [facility] Height 2016-05-08 13:21:00 184 cm [facility] [place] Temperature Oral (F) 2016-05-08 13:21:00 37 Yamileth [facility] Weight 2016-05-04 15:41:00 [facility] [place] Height 2016-05-04 15:41:00 182.8 cm [facility] [place] Procedures Procedure Date / Time Performing Clinician Source Performed US CAROTID DUPLEX 2020-09-09 10:21:00 Russo, Vandana Montague BILATERAL CT ANGIOGRAM ABDOMEN 2020-09-09 09:23:00 Russo, Vandana Montague PELVIS W AND OR WO CONTRAST XR CHEST 2 VW 2020-09-09 08:21:00 Russo, Vandana pinzon Confucianism CHOLESTEROL 2020-09-09 07:16:00 Russo, Vandana pinzon Confucianism TRIGLYCERIDES 2020-09-09 07:16:00 Russo, Vandana Montague GLUCOSE LEVEL 2020-09-09 07:16:00 Russo, Vandana Montague CREATININE LEVEL 2020-09-09 07:16:00 Russo, Vandana [place] Confucianism PHOSPHORUS LEVEL 2020-09-09 07:16:00 Russo, Vandana [place] Confucianism LDH 2020-09-09 07:16:00 Russo, Vandana Montague CYTOMEGALOVIRUS AB, IGG 2020-09-09 07:16:00 Russo, Vandana Montague CYTOMEGALOVIRUS AB, IGM 2020-09-09 07:16:00 Russo, Vandana Montague JAE-NGO VIRUS 2020-09-09 07:16:00 Russo, Vandana Montague ANTIBODY TEST HSV TYPE 1/2 COMBINED AB, 2020-09-09 07:16:00 Russo, Vandana Montague IGM HSV 1 & 2 GLYCOPROTEIN G 2020-09-09 07:16:00 Russo, Vandana Montague AB, IGG PARATHYROID HORMONE 2020-09-09 07:16:00 Russo, Vandana Montague TB T-SPOT 2020-09-09 07:16:00 Russo, Vandana Montague ABORH - TRANSPLANT 2020-09-09 07:16:00 Russo, Vandana Montague HLA TRANSPLANT EVALUATION 2020-09-09 07:16:00 Russo, Vandana [place] ESTIMATED GFR 2020-09-09 07:16:00 Russo, Vandana Montague LOW RESOLUTION FULL TYPING 2020-09-09 07:16:00 Russo, Vandana [place]ague BY SSO SINGLE ANTIGEN BEADS 2020-09-09 07:16:00 Russo, Vandana [place]ague C1Q CLASS 1 & 2 ANTIBODY 2020-09-09 07:16:00 Russo, Vandana Montague URINE CULTURE 2020-08-22 07:08:00 Russo, Vandana Montague ZINC TRANSPORTER 8 2020-08-22 07:08:00 Russo, Vandana Montague ANTIBODY COMPREHENSIVE METABOLIC 2020-08-22 07:08:00 Russo, Vandana Montague PANEL URINALYSIS SCREEN AND 2020-08-22 07:08:00 Russo, Vandana Montague MICROSCOPY, WITH REFLEX TO CULTURE HIV AG/AB COMBINATION 2020-08-22 07:08:00 Russo, Vandana Montague HEPATITIS A ANTIBODY TOTAL 2020-08-22 07:08:00 Russo, Vandana Montague HEPATITIS B CORE ANTIBODY 2020-08-22 07:08:00 Russo, Vandana Montague TOTAL HEPATITIS B SURFACE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
[2020-10-20 06:37] LABS: Absolute Lymphocytes (CBC) 0.1 K/uL (0.7-4.9); Basophils % 0.4 % (0-1.3); Hematocrit 28.9 % (39.6-49.0); Lymphocytes % 1.1 % (15.3-44.8); MPV 7.5 fL (7.6-11.3); RBC Red Blood Cell Count 2.91 M/uL (4.33-5.43)
[2020-10-20] MEDS ORDERED: ONDANSETRON 4 MG/2 ML VIAL ONE (06:48)
[2020-10-20 06:55] LABS: Albumin 3.7 g/dL (3.4-5.0); Bilirubin Direct 0.1 mg/dL (0-0.2); Bilirubin Total 0.6 mg/dL (0.2-1.0); Potassium 4.5 mmol/L (3.5-5.1)
[2020-10-20] MEDS ORDERED: NA CHLORIDE 0.9% 500 ML ONE (07:00)
--- NOTE | 2020-10-20 07:37 | RAD REPORT ---
EXAM DESCRIPTION: CT - Abdomen Pelvis Wo Contrast - 10/20/2020 7:09 am CLINICAL HISTORY: Abdominal pain. Abd pain;Nausea / vomiting COMPARISON: No comparisons TECHNIQUE: CT imaging of the abdomen and pelvis was performed without contrast. Solid organ, bowel a nd vascular assessment is limited due to lack of IV and oral contrast. All CT scans are performed using dose optimization technique as appropriate and may include automated exposure control or mA/KV adjustment according to patient size. FINDINGS: The lower lung pickett are clear. The liver, spleen, pancreas, adrenal glands and kidneys are within normal limits for a limited non-co ntrast examination. No bowel obstruction, free air, free fluid or abscess. Dialysis catheter noted colon in the anterior pelvis without abnormal finding. The appendix is normal. The osseous structures are within normal limits. IMPRESSION: No acute intra-abdominal or pelvic findings. A limited non-contrast examination was performed as detailed.
[2020-10-20] MEDS ORDERED: INSULIN -REGULAR HUMAN 50 UNIT/0.5 ML ML ONE (07:46)
[2020-10-20] MEDS ORDERED: PROMETHAZINE INJ 25 MG/ML AMP ONE (07:47)
[2020-10-20 08:11] LABS: Blood Morphology Comment NOT SEEN (NOT SEEN); Platelet Estimate ADEQ; White Blood Cell Scan OK (OK)
[2020-10-20] MEDS ORDERED: DICYCLOMINE HCL 20 MG/2 ML AMP IM ONE (10:08)
--- NOTE | 2020-10-20 10:37 | ER ---
Nurse's Notes [facility] Name: Dg Camacho Age: 59 yrs Sex: Male : 1960 Arrival Date: 10/20/2020 Time: 05:42 Bed 6 Private MD: Diagnosis: Vomiting;Diarrhea, unspecified;Abdominal pain, unspecified Presentation: 10/20 05:42 Chief complaint: Patient states: N/V since last night, hx of peritoneal dialysis, was em not about to do dialysis yesterday due to N/V, was given 4 mg Zofran IM, BGL 401. Coronavirus screen: Client denies travel out of the [place] in the last 14 days. Ebola Screen: Patient negative for fever greater than or equal to 101.5 degrees Fahrenheit, and additional compatible Ebola Virus Disease symptoms Patient denies exposure to infectious person. Patient denies travel to an Ebola-affected area in the 21 days before illness onset. No symptoms or risks identified at this time. Initial Sepsis Screen: Does the patient meet any 2 criteria? HR > 90 bpm. No. Patient's initial sepsis screen is negative. Does the patient have a suspected source of infection? No. Patient's initial sepsis screen is negative. Risk Assessment: Do you want to hurt yourself or someone else? Patient reports no desire to harm self or others. Onset of symptoms was October 20, 2020. 05:42 Method Of Arrival: EMS: [facility] em 05:42 Acuity: LIZ 3 em Historical: - Allergies: 05:44 PENICILLINS; em - PMHx: 05:44 Diabetes - IDDM; Dialysis; ESRD; Hypertension; em - PSHx: 05:44 peritoneal cath.; em - Immunization history:: Adult Immunizations up to date. - Social history:: Smoking status: Patient denies any tobacco usage or history of. Screenin:45 Abuse screen: Denies threats or abuse. Nutritional screening: No deficits noted. em Tuberculosis screening: No symptoms or risk factors identified. Fall Risk None identified. Assessment: 05:42 General: Appears in no apparent distress. uncomfortable, Behavior is calm, cooperative, em appropriate for age. Pain: Complains of pain in abdomen Pain began 1 day ago. Neuro: Level of Consciousness is awake, alert, obeys commands, Oriented to person, place, time, situation, Appropriate for age. Cardiovascular: Capillary refill < 3 seconds Patient's skin is warm and dry. Respiratory: Airway is patent Respiratory effort is even, unlabored, Respiratory pattern is regular, symmetrical. GI: Abdomen is flat, Reports nausea, vomiting. Derm: Skin is intact, Skin is pink, warm \\T\\ dry. Musculoskeletal: Capillary refill < 3 seconds, Range of motion: intact in all extremities. 07:20 Reassessment: Patient appears in no apparent distress at this time. Patient and/or ph family updated on plan of care and expected duration. Pain level reassessed. Patient is alert, oriented x 3, equal unlabored respirations, skin warm/dry/pink. Pt c/o nausea, additional nausea medication given, ERP also ordered IV insulin, pt reports that he has an insulin pump and will self administer insulin, ERP notified. 09:36 Reassessment: Patient appears in no apparent distress at this time. Patient and/or ph family updated on plan of care and expected duration. Pain level reassessed. Patient is alert, oriented x 3, equal unlabored respirations, skin warm/dry/pink. ERP at bedside to speak w/ pt about results. Vital Signs: 05:42 BP 180 / 65; Pulse 94; Resp 16; Temp 97.8; Pulse Ox 98% on R/A; Weight 117.93 kg; em Height 6 ft. 0 in. (182.88 cm); 06:51 BP 170 / 65; Pulse 86; Resp 14; Pulse Ox 98% on R/A; em 07:57 BP 164 / 64; Pulse 88; Resp 18; Pulse Ox 98% on R/A; ph 09:36 BP 153 / 57; Pulse 88; Resp 16; Pulse Ox 97% on R/A; ss 10:35 BP 140 / 71; Pulse 78; Resp 18; Pulse Ox 99% on R/A; ph 05:42 Body Mass Index 35.26 (117.93 kg, 182.88 cm) em ED Course: 05:42 Patient arrived in ED. em 05:44 Triage completed. em 05:44 Arm band placed on. em 05:45 Patient has correct armband on for positive identification. Bed in low position. Call em light in reach. Pulse ox on. NIBP on. 05:50 Inserted saline lock: 20 gauge in left antecubital area, using aseptic technique. Blood bb collected. 05:59 Avelino Liu, RN is Primary Nurse. em 06:09 [facility] Rus[facility]. pm1 06:09 Seven Corona MD is Attending Physician. pm1 06:56 Notified Nurse Practitioner and/or Physician Cmm Programmer of a critical lab result(s), bb creatinine of 14.1 Saqib Russo [employer] notified. 07:09 CT Abd/Pelvis - Without Contrast In Process Unspecified. EDMS 07:57 Primary Nurse role handed off by Avelino Liu RN ph 07:57 Charley Polanco RN is Primary Nurse. ph 08:27 COVID-19 : Document "Date of Symptom Onset" if Symptomatic. Sent. sv 08:27 Flu Sent. sv 08:28 Basic Metabolic Panel Sent. sv 10:55 No provider procedures requiring assistance completed. IV discontinued, intact, ph bleeding controlled, No redness/swelling at site. Pressure dressing applied. Administered Medications: 06:30 Drug: Zofran (Ondansetron) 4 mg Route: IVP; Site: left antecubital; em 07:41 Follow up: Response: No adverse reaction ph 06:44 Drug: NS 0.9% 500 ml Volume: 500 ml; Route: IV; Rate: 1 bolus; Site: left antecubital; em 07:30 Follow up: Response: No adverse reaction; IV Status: Completed infusion; IV Intake: ph 500ml 07:38 Drug: Phenergan (promethazine) 12.5 mg Route: IVP; Site: left antecubital; ph 09:51 Follow up: Response: No adverse reaction; Nausea is decreased ph 07:42 Not Given (Pt self administered via insulin pumpp): Insulin Regular Human 5 units IVP ph once 09:51 Drug: Bentyl (dicyclomine) 20 mg Route: IM; Site: right deltoid; ph 10:55 Follow up: Response: No adverse reaction ph Intake: 07:30 IV: 500ml; Total: 500ml. ph Outcome: 10:37 Discharge ordered by . pm1 10:55 Discharged to home ambulatory. ph 10:55 Condition: good 10:55 Discharge instructions given to patient, Instructed on discharge instructions, follow up and referral plans. medication usage, Demonstrated understanding of instructions, follow-up care, medications, Prescriptions given X 2. 10:55 Patient left the ED. ph Signatures: Dispatcher [employer] Malou Mcfadden, RN Avelino Mendoza, RN RN Abbey Weaver RN MIRZA bb Riddhi Araujo RN RN ss Charley Polanco RN RN ph Saqib Russo, [employer]ER [employer]ER pm1
--- NOTE | 2020-10-20 10:37 | EDPHYS ---
Physician Documentation [facility] Name: Dg Camacho Age: 59 yrs Sex: Male : 1960 Arrival Date: 10/20/2020 Time: 05:42 Bed 6 Private MD: ED Physician Seven Corona HPI: 10/20 06:25 This 59 yrs old Male presents to ER via EMS with complaints of pm1 Nausea/Vomiting. 06:25 The patient presents to the emergency department with nausea, vomiting. Onset: The pm1 symptoms/episode began/occurred yesterday. Possible causes: unknown. The symptoms are aggravated by nothing. The symptoms are alleviated by nothing. Associated signs and symptoms: Pertinent positives: abdominal pain, Pertinent negatives: constipation, dysuria, fever. Severity of symptoms: in the emergency department the symptoms are unchanged. The patient has not recently seen a physician. Patient did not perform his peritoneal dialysis yesterday. Historical: - Allergies: 05:44 PENICILLINS; em - PMHx: 05:44 Diabetes - IDDM; Dialysis; ESRD; Hypertension; em - PSHx: 05:44 peritoneal cath.; em - Immunization history:: Adult Immunizations up to date. - Social history:: Smoking status: Patient denies any tobacco usage or history of. ROS: 06:25 Constitutional: Negative for fever, chills, and weight loss, Cardiovascular: Negative pm1 for chest pain, palpitations, and edema, Respiratory: Negative for shortness of breath, cough, wheezing, and pleuritic chest pain. 06:25 Back: Negative for injury and pain, : Negative for injury, bleeding, discharge, and swelling, MS/Extremity: Negative for injury and deformity, Skin: Negative for injury, rash, and discoloration, Neuro: Negative for headache, weakness, numbness, tingling, and seizure. 06:25 Abdomen/GI: Positive for abdominal pain, nausea, vomiting, and diarrhea, Negative for constipation. 06:25 All other systems are negative. Exam: 06:25 Constitutional: This is a well developed, well nourished patient who is awake, alert, pm1 and in no acute distress. Head/Face: Normocephalic, atraumatic. 06:25 Skin: Warm, dry with normal turgor. Normal color with no rashes, no lesions, and no evidence of cellulitis. MS/ Extremity: Pulses equal, no cyanosis. Neurovascular intact. Full, normal range of motion. 06:25 Cardiovascular: Rate: normal, Rhythm: regular, Pulses: no pulse deficits are appreciated. 06:25 Respiratory: Exam negative for acute changes, respiratory distress, shortness of breath, Breath sounds: are clear throughout. 06:25 Abdomen/GI: Inspection: obese Peritoneal dialysis site without any signs of cellulitis or infection, Palpation: soft, in all quadrants, mild abdominal tenderness, in the right upper quadrant and left upper quadrant. 06:25 Neuro: Exam negative for acute changes, Orientation: is normal, Mentation: is normal, Motor: is normal, moves all fours. Vital Signs: 05:42 BP 180 / 65; Pulse 94; Resp 16; Temp 97.8; Pulse Ox 98% on R/A; Weight 117.93 kg; em Height 6 ft. 0 in. (182.88 cm); 06:51 BP 170 / 65; Pulse 86; Resp 14; Pulse Ox 98% on R/A; em 07:57 BP 164 / 64; Pulse 88; Resp 18; Pulse Ox 98% on R/A; ph 09:36 BP 153 / 57; Pulse 88; Resp 16; Pulse Ox 97% on R/A; ss 10:35 BP 140 / 71; Pulse 78; Resp 18; Pulse Ox 99% on R/A; ph 05:42 Body Mass Index 35.26 (117.93 kg, 182.88 cm) em MDM: 06:19 Patient medically screened. pm1 07:32 Data reviewed: vital signs. Data interpreted: Pulse oximetry: on room air is 98 %. pm1 Interpretation: normal. 09:43 ED course: Patient does not want me to access the PD port and obtain fluid since we do pm1 not have the bags and fluids for PD here. He intends to have the fluids checked on Wednesday with his dialysis nurse. Patient's pain comes and goes. Negative CT. Does not appear to be peritonitis. Impression is viral gastroenteritis. Educated the patient on return precautions. 10:36 Counseling: I had a detailed discussion with the patient and/or guardian regarding: the pm1 historical points, exam findings, and any diagnostic results supporting the discharge/admit diagnosis, lab results, radiology results, the need for outpatient follow up, to return to the emergency department if symptoms worsen or persist or if there are any questions or concerns that arise at home. 10/20 06:19 Order name: Basic Metabolic Panel pm1 10/20 06:19 Order name: CBC with Diff; Complete Time: 08:13 pm1 10/20 06:19 Order name: Hepatic Function; Complete Time: 06:58 pm1 10/20 06:19 Order name: Lipase; Complete Time: 06:58 pm1 10/20 06:19 Order name: Basic Metabolic Panel; Complete Time: 06:58 EDMS 10/20 06:36 Order name: Flu pm1 10/20 06:35 Order name: CT Abd/Pelvis - Without Contrast; Complete Time: 07:44 pm1 10/20 06:36 Order name: COVID-19 : Document "Date of Symptom Onset" if Symptomatic. pm1 10/20 06:37 Order name: Influenza Screen (A ; Complete Time: 07:44 EDMS 10/20 06:44 Order name: CBC Smear Scan; Complete Time: 08:13 EDMS 10/20 08:07 Order name: SARS-COV-2 RT PCR; Complete Time: 08:13 EDMS 10/20 09:31 Order name: Glucose, Ancillary Testing; Complete Time: 09:43 EDMS 10/20 06:19 Order name: IV Saline Lock; Complete Time: 06:25 pm1 10/20 06:19 Order name: Labs collected and sent; Complete Time: 06:25 pm1 10/20 08:49 Order name: Glucose Level; Complete Time: 09:25 pm1 Administered Medications: 06:30 Drug: Zofran (Ondansetron) 4 mg Route: IVP; Site: left antecubital; em 07:41 Follow up: Response: No adverse reaction ph 06:44 Drug: NS 0.9% 500 ml Volume: 500 ml; Route: IV; Rate: 1 bolus; Site: left antecubital; em 07:30 Follow up: Response: No adverse reaction; IV Status: Completed infusion; IV Intake: ph 500ml 07:38 Drug: Phenergan (promethazine) 12.5 mg Route: IVP; Site: left antecubital; ph 09:51 Follow up: Response: No adverse reaction; Nausea is decreased ph 07:42 Not Given (Pt self administered via insulin pumpp): Insulin Regular Human 5 units IVP ph once 09:51 Drug: Bentyl (dicyclomine) 20 mg Route: IM; Site: right deltoid; ph 10:55 Follow up: Response: No adverse reaction ph Disposition Summary: 10/20/20 10:37 Discharge Ordered Location: Home pm1 Problem: new pm1 Symptoms: have improved pm1 Condition: Stable pm1 Diagnosis - Vomiting pm1 - Diarrhea, unspecified pm1 - Abdominal pain, unspecified pm1 Followup: pm1 - With: Emergency Department - When: As needed - Reason: Worsening of condition Followup: pm1 - With: Private Physician - When: 2 - 3 days - Reason: Recheck today's complaints, Continuance of care, Re-evaluation by your physician Discharge Instructions: - Discharge Summary Sheet pm1 - Abdominal Pain, Adult pm1 - Diarrhea, Adult pm1 - Nausea and Vomiting, Adult pm1 - Viral Gastroenteritis, Adult pm1 Forms: - Medication Reconciliation Form pm1 - Thank You Letter pm1 - Antibiotic Education pm1 - Prescription Opioid Use pm1 Prescriptions: - promethazine 25 mg Oral Tablet - take 1 tablet by ORAL route every 6 hours As needed; 20 tablet; Refills: 0, pm1 Product Selection Permitted - dicyclomine 20 mg Oral Tablet - take 1 tablet by ORAL route every 6 hours As needed; 20 tablet; Refills: 0, pm1 Product Selection Permitted Signatures: Dispatcher [employer] Avelino Mondragon, RN Charley Reese RN RN ph Marinas, Patrick, WAITER/WAITRESS DINING CAR WAITER/WAITRESS DINING CAR pm1 Corrections: (The following items were deleted from the chart) 07:07 06:37 CORONAVIRUS ordered. ENRIQUE NUNEZ
[2020-10-20 11:02] VITALS: TEMP 97.8
[2020-10-20 11:10] VITALS: BP 140/71; O2SAT 99
== END 2020-10-20 10:55 | disposition home or self-care (01) ==
LOC: ER 05:36
DX: R19.7 Diarrhea, unspecified (principal); R10.9 Unspecified abdominal pain; E11.22 Type 2 diabetes mellitus with diabetic chronic kidney disease; I12.0 Hypertensive chronic kidney disease with stage 5 chronic kidney disease or end stage renal disease; N18.6 End stage renal disease; Z99.2 Dependence on renal dialysis; Z88.0 Allergy status to penicillin; Z20.822 Contact with and (suspected) exposure to COVID-19
CPT/HCPCS: 96361; 85025; 80048; 36415; 82947; 80076; 83690; 87804 ×2; 74176; 96375; 96372; 96374; 99284; U0003; J2550; J0500; J7040; J2405

== ENCOUNTER 2021-04-12 17:03 | Emergency (ER) | payer OTHER ==
--- OUTSIDE RECORDS SUMMARY | 2021-04-12 17:07 | XMS REPORT | Continuity of Care Document ---
:1960 Author Organization [facility] t Address [address] [place] [address] Care Team Providers Name Role Phone TUAN WADSWORTH Primary Care Physician Unavailable Nathan LEONARD Attending Clinician Rishidanielle GIRALDO Attending Clinician RISHI Attending Clinician Unavailable TUAN WADSWORTH Attending Clinician Unavailable Rupesh_Sirisha Attending Clinician Unavailable Tuan Wadsworth MD Attending Clinician Doctor Unassigned, Name Attending Clinician Unavailable Jared DODSON Attending Clinician Unavailable GIRMA Attending Clinician Unavailable RADHA Attending Clinician Unavailable JOHNNY Attending Clinician Unavailable MD LENNOX TURNER Attending Clinician Unavailable GARRETT Attending Clinician Unavailable SANDI Attending Clinician Unavailable MD MARKOS JUNIOR Attending Clinician Unavailable TARUN Attending Clinician Unavailable MD Divya MCNEIL Attending Clinician Unavailable VALENTÍN Attending Clinician Unavailable Rupesh_Sirisha Admitting Clinician Unavailable JAMES Admitting Clinician Unavailable MD SIS RAMIREZ Admitting Clinician Unavailable SANDI Admitting Clinician Unavailable MD MARKOS JUNIOR Admitting Clinician Unavailable TARUN Admitting Clinician Unavailable MD Divya MCNEIL Admitting Clinician Unavailable VALENTÍN Admitting Clinician Unavailable Payers Payer Name Policy Type Policy Number Effective Date Expiration Date Mara reynoso [facility] [id number] 2020 PPO/POS 00:00:00 [facility] [id number] (PPO) [place] [id number] 2019 (PPO) 00:00:00 Problems Condition Condition Condition Status Onset Resolution Last Treating Co mments Source Name Details Category Date Date Treatment Clinician Date Long-term Long-term Problem Active Eric leon current Current 5-25 Family use of Use of 00:00: Practic insulin Insulin 00 e Morbid Morbid Problem Active [facility] obesity Obesity 2-22 Family 00:00: Practic 00 e Type 1 Type 1 Problem Active [facility] diabetes Diabetes 4-30 Family mellitus Mellitus 00:00: [...] 00 e 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 1-25 Family 00:00: Practic 00 e General General Problem Active 2018-04 [facility] finding of Finding of 1-25 Fa kate observatio Observatio 00:00: Pr actic n of n of 00 e patient Patient Troponin I Troponin I Disease Active 2018-04 U nivers above above 1-05 [place] 00 [place] JANN on JANN on Disease Active 2018-04 Univers CPAP CPAP 1-05 ity of 00:00: [place] 00 Medical Branch Dyspnea Dyspnea Disease Active 2018-04 Univers 1-04 ity of 00:00: [place] 00 Medical Branch Obesity Obesity Disease Active 2018-04 Univers (BMI (BMI 1-04 ity of 30-39.9) 30-39.9) 00:00: Medical Branch Hypertensi Hypertensi Disease Active 2018-04 U nivers ve ve 1-04 [place] of emergency emergency 00[place] IDDM IDDM Disease Active 2018-04 Univers (insulin (insulin 04 ity of dependent dependent 00:00: diabetes diabetes 00 Medica l mellitus) mellitus) Bran ch Stage 4 Stage 4 Disease Active 2018-04 Univers chronic chronic 04 ity of kidney kidney 00:00: [place] disease disease Medical Branch RENATA (acute RENATA (acute Disease Active 2018-04 U nivers kidney kidney 04-08 ity of injury) injury) 00:00: Medical Branch Positive D Positive D Disease Active 2018-04 U nivers dimer dimer 04-08 ity of 00:00: Medical Branch Depressive Depressive Problem Active [facility] disorder Disorder 5-09 Family 00:00: Practic 00 e Hyperlipid Hyperlipid Problem Active V illage emia emia 4-23 Family 00:00: Practic 00 e Chronic Chronic Problem Active [facility] kidney Kidney 1-22 Family disease Disease 00:00: Practic 00 e Uncontroll Uncontroll Disease Active Overview : Univers ed type 1 ed type 1 05-06 Formattin i ty of diabetes diabetes 00:00: g of this Jose Enrique as mellitus mellitus 00 note Medica l with with might be Branch ophthalmic ophthalmic different manifestat manifestat from the ions ions original. ICD10 Diagnosis Term [place] Dispatcher Utility Essential Essential Disease Active Uni vers hypertensi hypertensi 3-27 it y of on, benign on, benign 00:[place]: [place] Allergies, Adverse Reactions, Alerts Allergy Allergy Status Severity Reaction(s) Onset Inactive Treating Comm ents Source Name Type Date Date Clinician PENICILL Drug Active Unknown-Cmnt Un shai INS Class 3-10 ity of 00:00: Medical Branch Penicill Propensi Active Other - See Allergy Univers ins ty to comments 3-10 as a ity of adverse 00:00: childAlle [place] reaction 00 rgy as a Medica l s child Branch PENICILL Allergy Active [place] IN to Family substanc Practic e e PENICILL Allergy Active [place] INS to Family substanc Practic e e Social History Social Habit Start Date Stop Date Quantity Comments Source Exposure to Not sure [facility] SARS-CoV-2 [place] Medical (event) Branch Alcohol intake 2021-04-11 2021-04-11 Current University of 00:00:00 00:00:00 non-drinker of [facility] alcohol Branch (finding) Tobacco Comment 2019-11-06 2019-11-06 quit Unive rsity of 00:00:00 00:00:00 [facility] Tobacco use and 2015-02-07 2015-02-07 Former user Universi ty of exposure 00:00:00 00:00:00 [facility] Sex [birth year] At [birth year] Universit y of 00:00:00 00:00:00 [facility] Smoking Status Start Date Stop Date Source Never smoker [facility] Medications Ordered Filled Start Stop Current Ordering Indication Dosage Frequency Signature Comments Components Source Medication Medication Date Date Medication? Clinician (SIG) Name Name chlorhexidi Yes [id number] Apply to [facility] 4 % 04-11 area(s) ity of external 00:00: once daily Jose Enrique as liquid 00 as needed Medical for Wound Branch care. doxycycline 2021- Yes [id number] 100mg Take 1 Univers hyclate 100 04-11 tablet by it y of mg tablet 00:00: 05:59 mouth 2 [place] :[place] (two) Medical times Branch daily for 10 days. vitamin b 2020-04 Yes 1{tbl} Take 1 Univ ers complex-vit 1-23 tablet by ity of [place] 15:35: mouth. [place] c-folic 52 Medical acid 0.8 mg Branch tablet vitamin b 2020-04 Yes 1{tbl} Take 1 Univ ers complex-vit 1-23 tablet by [place] of [place] 15:35: mouth. [place] c-folic 52 Medical acid 0.8 mg Branch tablet vitamin b 2020-04 Yes 1{tbl} Take 1 Univ ers complex-vit 1-23 tablet by [place] of [place] 15:35: mouth. [place] c-folic 52 Medical acid 0.8 mg Branch tablet vitamin b 2020-04 Yes 1{tbl} Take 1 Univ ers complex-vit 1-23 tablet by [place] of [place] 15:35: mouth. [place] c-folic 52 Medical acid 0.8 mg Branch tablet doxazosin 8 2020-04- No 8mg Take 8 mg Univers mg tablet 04-27 by mouth 2 ity of 15:34: 00:00 (two) [place] 23 :00 times Medical daily. Branch butalbital- 2020-04- No 1{capsu Take 1 Univers acetaminoph 04-27 le} capsule by i ty of en-caffeine 15:34: 00:00 mouth. [facility] as 50-325-40-3 13 :00 Medical 0 mg per Branch capsule ALPRAZolam 2020-04- No .5mg Take 0.5 Un shai 0.5 mg 04-27- mg by ity of tablet 15:33: 00:00 mouth. [place] 36 :00 [facility] Branch busPIRone 5 2020-04 Yes [id number] 5mg Take 1 Univers mg tablet -23 tablet by ity o f 00:00: mouth 2 [place] 00 (two) Medical times Branch daily. busPIRone 5 2020-04 Yes [id number] 5mg Take 1 Univers mg tablet -23 tablet by ity o f 00:00: mouth 2 [place] (two) Medical times Branch daily. busPIRone 5 2020-04 Yes [id number] 5mg Take 1 Univers mg tablet 1-23 tablet by ity o f 00:00: mouth 2 [place] (two) Medical times Branch daily. busPIRone 5 2020-04 Yes [id number] 5mg Take 1 Univers mg tablet -23 tablet by ity o f 00:00: mouth 2 [place] (two) Medical times Branch daily. proMETHazin Yes Univer s e 25 mg 4-12 ity of tablet 00:00: [place] [facility] proMETHazin Yes Univer s e 25 mg 4-12 ity of tablet 00:00: [place] [facility] proMETHazin Yes Univer s e 25 mg 4-12 ity of tablet 00:00: [place] [facility] Branch proMETHazin Yes Univer s e 25 mg 4-12 ity of tablet 00:00: [address] Branch mupirocin 2 2020- No [id number] Apply Univers % nasal 4-12 11-23 twice ity of ointment 00:00: 00:00 daily to Nasim kiser 00 :00 nares with Medical qtip. Branch prednisoLON 2020- Unive rs E acetate 1 06-28 ity of % 00:00: 00:00 [place] ophthalmic 00 :00 Medical suspension Branch drops ergocalcife Yes [id number] Take [facility] ers rol, 3 50,000 ity of vitamin d2, 00:00: [place] 1,250 mcg 00 mouth Medical (50,000 weekly. Branch unit) capsule ergocalcife Yes [id number] Take [facility] ers rol, 3- 50,000 ity of vitamin d2, 00:00: Units [place] 1,250 mcg 00 mouth Medical (50,000 weekly. Branch unit) capsule ergocalcife Yes [id number] Take [facility] ers rol, 3 50,000 ity of vitamin d2, 00:00: Units [place] 1,250 mcg 00 mouth Medical (50,000 weekly. Branch unit) capsule ergocalcife Yes [id number] Take [facility] ers rol, 3 50,000 ity of vitamin d2, 00:00: Units [place] 1,250 mcg 00 mouth Medical (50,000 weekly. Branch unit) capsule minimed minimed No minimed Vill age guardian guardian 11 guardian Fam marielle sensor 3 sensor 3 00:00: sensor 3 P ractic misc misc 00 misc e polyethylen 2019-04 No 17g Take 17 g Univers e glycol 04-07 by mouth. ity o f [id number] 17 00:00: 00:00 [place] gram powder 00 :00 [facility] FAMOTIDINE 2019-04 Yes Take by Uni vers ORAL 0-24 mouth. ity of 15:19: [address] FAMOTIDINE 2019-04 Yes Take by Uni vers ORAL 0-24 mouth. ity of 15:19: [address] FAMOTIDINE 2019-04 Yes Take by Uni vers ORAL 0-24 mouth. ity of 15:19: [address] FAMOTIDINE 2019-04 Yes Take by Uni vers ORAL 0-24 mouth. ity of 15:19: [address] azithromyci 2019-2020- No [id number] 250mg Take 1 Univers n 250 mg 0-24 - tablet by ity o f tablet 00:00: 00:00 mouth [place] 00 :00 daily. Medical Take 500 Branch mg day 1, then 250 mg days 2 to 5. losartan 2020-0 Yes 100mg Take 100 Univ ers 100 mg 9-28 mg by ity of tablet 00:00: mouth [place] 00 daily. Medical Branch losartan 2020-0 Yes 100mg Take 100 Univ ers 100 mg 9-28 mg by ity of tablet 00:00: mouth [place] 00 daily. Medical Branch losartan 2020-0 Yes 100mg Take 100 Univ ers 100 mg 9-28 mg by ity of tablet 00:00: mouth [place] 00 daily. Medical Branch losartan 2020-0 Yes 100mg Take 100 Univ ers 100 mg 9-28 mg by ity of tablet 00:00: mouth [place] 00 daily. Medical Branch sevelamer 2020-0 Yes Univers 800 mg 9-18 ity of tablet 00:00: [place] 00 Medical Branch sevelamer 2020-0 Yes Univers 800 mg 9-18 ity of tablet 00:00: [place] 00 Medical Branch sevelamer 2020-0 Yes Univers 800 mg 9-18 ity of tablet 00:00: [place] 00 Medical Branch sevelamer 2020-0 Yes Univers 800 mg 9-18 ity of tablet 00:00: [place] 00 Medical Branch albuterol 2020-0 Yes 2.5mg Inhale 2.5 U nivers 2.5 mg /3 9-08 mg. ity of mL (0.083 13:15: [place] %) 13 Medical nebulizer Branch solution NIFEdipine 2020-0 Yes 30mg Take 30 mg U nivers ER 30 mg 9-08 by mouth 2 ity o f tablet 13:15: (two) [place] 13 times Medical daily. Branch furosemide 2020-0 Yes 80mg Take 80 mg U nivers 80 mg 9-08 by mouth ity of tablet 13:15: every [place] 13 morning Medical and Branch evening. atorvastati 2020-0 Yes 40mg Take 40 mg Univers n 40 mg 9-08 by mouth ity of tablet 13:15: daily. [place] 13 Medical Branch carvediloL 2020-0 Yes 12.5mg Take 12.5 Univers 25 mg 9-08 mg by ity of tablet 13:15: mouth 2 [place] 13 (two) Medical times [place] daily with meals. albuterol 2020-0 Yes 2.5mg Inhale 2.5 U nivers 2.5 mg /3 9-08 mg. ity of mL (0.083 13:15: [place] %) 13 Medical nebulizer Branch solution NIFEdipine 2020-0 Yes 30mg Take 30 mg U nivers ER 30 mg 9-08 by mouth 2 ity o f tablet 13:15: (two) [place] [address] times Medical daily. Branch furosemide 2020-0 Yes 80mg Take 80 mg U nivers 80 mg 9-08 by mouth ity of tablet 13:15: every [place] 13 morning Medical and Branch evening. atorvastati 2020-0 Yes 40mg Take 40 mg Univers n 40 mg 9-08 by mouth ity of tablet 13:15: daily. [place] [address] Medical Branch carvediloL 2020-0 Yes 12.5mg Take 12.5 Univers 25 mg 9-08 mg by ity of tablet 13:15: mouth 2 [place] [address] ([facility]) Medical times [place] daily with meals. albuterol 2020-0 Yes 2.5mg Inhale 2.5 U nivers 2.5 mg /3 9-08 mg. ity of mL (0.083 13:15: [place] %) 13 Medical nebulizer Branch solution NIFEdipine 2020-0 Yes 30mg Take 30 mg U nivers ER 30 mg 9-08 by mouth 2 ity o f tablet 13:15: (two) [place] [address] times Medical daily. Branch furosemide 2020-0 Yes 80mg Take 80 mg U nivers 80 mg 9-08 by mouth ity of tablet 13:15: every [place] [address] morning Medical and Branch evening. atorvastati 2020-0 Yes 40mg Take 40 mg Univers n 40 mg 9-08 by mouth ity of tablet 13:15: daily. [place] [address] Medical Branch carvediloL 2020-0 Yes 12.5mg Take 12.5 Univers 25 mg 9-08 mg by ity of tablet 13:15: mouth 2 [place] [address] (two) Medical times [place] daily with meals. albuterol 2020-0 Yes 2.5mg Inhale 2.5 U nivers 2.5 mg /3 9-08 mg. ity of mL (0.083 13:15: [place] %) 13 Medical nebulizer Branch solution NIFEdipine 2020-0 Yes 30mg Take 30 mg U nivers ER 30 mg 9-08 by mouth 2 ity o f tablet 13:15: (two) [place] [address] times Medical daily. Branch furosemide 2020-0 Yes 80mg Take 80 mg U nivers 80 mg 9-08 by mouth ity of tablet 13:15: every [place] [address] morning Medical and Branch evening. atorvastati 2020-0 Yes 40mg Take 40 mg Univers n 40 mg 9-08 by mouth ity of tablet 13:15: daily. [place] [address] Medical Branch carvediloL 2020-0 Yes 12.5mg Take 12.5 Univers 25 mg 9-08 mg by ity of tablet 13:15: mouth 2 [place] [address] (two) Medical times Branch daily with meals. insulin 2020-0 Yes 25U inject 25 Unive rs lispro 8-05 Units ity of (HUMALOG 09:20: [place] the [place] U-100 25 skin Medical INSULIN SC) daily. Branch Indication s: Pt has insulin pump insulin 2020-0 Yes 25U inject 25 Unive rs lispro 8-05 Units ity of (HUMALOG 09:20: [place] the [place] U-100 25 skin Medical INSULIN [place]) daily. Branch Indication s: Pt has insulin pump insulin 2020-0 Yes 25U inject 25 Unive rs lispro 8-05 Units ity of (HUMALOG 09:20: [place] the [place] U-100 25 skin Medical INSULIN [place]) daily. Branch Indication s: Pt has insulin pump insulin 2020-0 Yes 25U inject 25 Unive rs lispro 8-05 Units ity of (HUMALOG 09:20: [place] the [place] U-100 25 skin Medical INSULIN SC) daily. Branch Indication s: Pt has insulin pump ondansetron 2019-0 2020- No TK 1 T PO Univers 4 mg tablet 11-01-23 Q 6 H PRN it y of 00:00: 00:00 [place] 00 :00 Medical Branch albuterol albuterol No albuterol [place] sulfate 2.5 sulfate 2.5 sulfate Family mg/3 mL mg/3 mL 2.5 mg/3 Pract ic (0.083 %) (0.083 %) mL (0.083 e solution solution %) for for solution nebulizatio nebulizatio for n USE 1 n USE 1 nebulizati VIAL VIA VIAL VIA on USE 1 NEBULIZER NEBULIZER VIAL VIA EVERY 6 EVERY 6 NEBULIZER HOURS HOURS EVERY 6 NEEDED NEEDED HOURS NEEDED allopurinol allopurinol No allopurino [facility] 100 mg 100 mg l 100 mg Family tablet TAKE tablet TAKE tablet Practic 1 TABLET BY 1 TABLET BY TAKE 1 e MOUTH ONCE MOUTH ONCE TABLET BY DAILY DAILY MOUTH ONCE DAILY alprazolam alprazolam No alprazolam [facility] 0.5 mg 0.5 mg 0.5 mg Family tablet tablet tablet Practic e atorvastati atorvastati No atorvastat [facility] n 40 mg n 40 mg in 40 mg Famil y tablet Take tablet Take tablet Practic 1 tablet 1 tablet Take 1 e every day every day tablet by oral by oral every day route at route at by oral bedtime for bedtime for route at 90 days. 90 days. bedtime for 90 days. butalbital- butalbital- No 1capsul Q1D butalbital [place] acetaminoph acetaminoph e(s) -acetamino Family en-caffeine en-caffeine [...] for 7 days. carvedilol carvedilol No carvedilol [facility] 12.5 mg 12.5 mg 12.5 mg Family tablet TAKE tablet TAKE tablet Practic 1 TABLET BY 1 TABLET BY TAKE 1 e MOUTH TWICE MOUTH TWICE TABLET BY DAILY DAILY MOUTH TWICE DAILY Contour Contour No 5strip( Q1D Contour Eric [...] 800 1 qd Fam marielle Practic e dicyclomine dicyclomine No dicyclomin [facility] 20 mg 20 mg e 20 mg Family tablet TAKE tablet TAKE tablet Practic 1 TABLET BY 1 TABLET BY TAKE 1 e MOUTH EVERY MOUTH EVERY TABLET BY 6 HOURS 6 HOURS MOUTH NEEDED NEEDED EVERY 6 HOURS NEEDED DOK 100 mg DOK 100 mg No [...] MOUTH TWICE DAILY ergocalcife ergocalcife No ergocalcif [facility] [place] Family (vitamin (vitamin (vitamin Pra ctic D2) 1,250 D2) 1,250 D2) 1,250 e mcg (50,000 mcg (50,000 mcg unit) unit) (50,000 capsule capsule unit) TAKE 1 TAKE 1 capsule CAPSULE BY CAPSULE BY TAKE 1 MOUTH ONCE MOUTH ONCE CAPSULE BY A WEEK A WEEK MOUTH ONCE A WEEK famotidine famotidine No 2 Q1D famotidine [facility] 20 mg 20 mg 20 mg Family tablet Take tablet Take tablet Practic 2 tablets 2 tablets Take 2 e every day every day tablets by oral by oral every day route as route as by oral directed. directed. route as directed. furosemide furosemide No furosemide [facility] 80 mg 80 mg 80 mg Family tablet TAKE tablet TAKE tablet Practic 2 TABLETS 2 TABLETS TAKE 2 e BY MOUTH BY MOUTH TABLETS BY ONCE DAILY ONCE DAILY MOUTH ONCE DAILY gentamicin gentamicin No gentamicin [facility] 0.1 % 0.1 % 0.1 % [facility] topical topical topical Practi c cream APPLY cream APPLY cream e TO EXIT TO EXIT APPLY TO SITE D SITE D EXIT SITE D guardian guardian No guardian Eric edward sensor 3 sensor 3 sensor 3 Fam marielle misc misc misc Practic e Humalog Humalog No Humalog [place] U-100 U-100 U-100 [facility] Insulin 100 Insulin 100 Insulin Practic unit/mL unit/mL 100 e subcutaneou subcutaneou unit/mL s solution s solution subcutaneo USE WITH USE WITH us INSULIN INSULIN solution PUMP TOTAL PUMP TOTAL USE WITH DAILY DOSE DAILY DOSE INSULIN 100 100 PUMP TOTAL DAILY DOSE 100 losartan losartan No 1 Q1D losartan Eric edward 100 mg 100 mg 100 mg Family tablet Take tablet Take tablet Practic 1 tablet 1 tablet Take 1 e every day every day tablet by oral by oral every day route as route as by oral directed directed route as for 90 for 90 directed days. days. for 90 days. metolazone metolazone No metolazone [facility] 5 mg tablet 5 mg tablet 5 [...] SITE ONCE DAILY nifedipine nifedipine No nifedipine [place] ER 60 mg ER 60 mg ER 60 mg Fam marielle tablet,exte tablet,exte tablet,ext Practic nded nded ended e release release release ondansetron ondansetron No ondansetro [facility] HCl 4 mg HCl 4 mg [...] VOMITING Paradigm Paradigm No Paradigm Eric edward [place] 3 [place] 3 [place] Family mL USE WITH mL USE WITH 3 mL USE Practic MEDTRONIC MEDTRONIC WITH e INSULIN INSULIN MEDTRONIC PUMP, PUMP, INSULIN CHANGE CHANGE PUMP, EVERY 2 EVERY 2 CHANGE DAYS DAYS EVERY 2 DAYS Senokot-S 1 Senokot-S 1 No Senokot-S [place] qd qd 1 qd Family Practic e sevelamer sevelamer No sevelamer [facility] carbonate carbonate carbonate Family 800 mg 800 mg 800 mg Practic tablet TAKE tablet TAKE tablet e 1 TABLET BY 1 TABLET BY TAKE 1 MOUTH THREE MOUTH THREE TABLET BY TIMES DAILY TIMES DAILY MOUTH WITH MEALS WITH MEALS THREE FOR 6 DAYS FOR 6 DAYS TIMES DAILY WITH MEALS FOR 6 DAYS SIMPLECHOIC SIMPLECHOIC No 45set(s SIMPLECHOI [place] E quick E quick ) CE quick Famil y Q-23-5 Q-23-5 Q-23-5 Practic infusion infusion infusion e set Take 45 set Take 45 set Take sets every sets every 45 sets 3 months by 3 months by every 3 miscell. miscell. months by route as route as miscell. directed. directed. route as directed. triamcinolo triamcinolo No triamcinol [facility] ne ne one Family acetonide acetonide acetonide Practic 0.1 % 0.1 % 0.1 % e topical topical topical cream APPLY cream APPLY cream CREAM CREAM APPLY EXTERNALLY EXTERNALLY CREAM TO RASH TO RASH EXTERNALLY TWICE DAILY TWICE DAILY TO RASH TWICE DAILY Immunizations Ordered Immunization Filled Immunization Date Status Commen ts Source Name Name COVID-19 COVID-19 2020-05-06 Completed [facility] (SARS-COV-2) (SARS-COV-2) 00:00:00 Practice vaccine, unspecified vaccine, unspecified COVID-19 COVID-19 2020-04-05 Completed [place] [facility] (SARS-COV-2) (SARS-COV-2) 00:00:00 Practice vaccine, unspecified vaccine, unspecified tetanus toxoid, tetanus toxoid, 2018-04-05 Completed Vill age Family unspecified unspecified 00:00:00 Practice formulation formulation pneumococcal pneumococcal 2018-04-05 Completed [facility] Fa kate conjugate PCV 13 conjugate PCV 13 00:00:00 Pr actice Vital Signs Vital Name Observation Time Observation Value Comments Source Systolic blood 2021-04-11 22:34:00 158 mm[Hg] [facility]iver [facility] Diastolic blood 2021-04-11 22:34:00 73 mm[facility]Hg[facility] 2021-04-11 22:31:00 80 /min [facility] Body temperature 2021-04-11 22:31:00 36.94 [place] [facility] Respiratory rate 2021-04-11 22:31:00 16 /min [facility] Body height 2021-04-11 22:31:00 182.9 cm [facility] Body weight 2021-04-11 22:31:00 120.203 kg [facility] BMI 2021-04-11 22:31:00 35.94 kg/m2 [facility] Oxygen saturation in 2021-04-11 22:31:00 99 /min [facility] blood by [facility] Pulse oximetry Branch Systolic blood 2021-02-25 21:17:00 119 mm[Hg] Univer sity of pressure [facility] Diastolic blood 2021-02-25 21:17:00 70 mm[Hg] Unive rsity of [facility] Heart rate 2021-02-25 21:17:00 78 /min Universi ty [facility] Body temperature 2021-02-25 21:17:00 37.33 [facility] Body height 2021-02-25 21:17:00 182.9 cm Universi ty [facility] Body weight 2021-02-25 21:17:00 117.028 kg Universi [facility] BMI 2021-02-25 21:17:00 34.99 kg/m2 [facility] BP Diastolic 2021-02-20 00:00:00 78 mm[Hg] [facility] Height 2021-02-20 00:00:00 72 [in_i] [facility] BMI (Body Mass 2021-02-20 00:00:00 35.6 kg/m2 [facility]) Practice BP Systolic 2021-02-20 00:00:00 143 mm[Hg] [facility] Body Weight 2021-02-20 00:00:00 262.4 [lb_av] [facility] BP Diastolic 2020-11-27 00:00:00 76 mm[Hg] [facility] Height 2020-11-27 00:00:00 72 [in_i] [facility] BMI (Body Mass 2020-11-27 00:00:00 35.3 kg/m2 [facility] BP Systolic 2020-11-27 00:00:00 156 mm[Hg] [facility] Body Weight 2020-11-27 00:00:00 260 [lb_av] [facility] BP Diastolic 2020-08-27 00:00:00 74 mm[Hg] [facility] Height 2020-08-27 00:00:00 72 [in_i] [facility] BMI (Body Mass 2020-08-27 00:00:00 35.8 kg/m2 [facility] Practice BP Systolic 2020-08-27 00:00:00 143 mm[Hg] [facility] Body Weight 2020-08-27 00:00:00 264 [lb_av] [facility] Practice BP Diastolic 2020-05-27 00:00:00 67 mm[Hg] [facility] Practice Height 2020-05-27 00:00:00 72 [in_i] [facility] Practice BMI (Body Mass 2020-05-27 00:00:00 36.5 kg/m2 [facility]) Practice BP Systolic 2020-05-27 00:00:00 107 mm[Hg] [facility] Practice Body Weight 2020-05-27 00:00:00 269.2 [lb_av] [facility] Practice BP Diastolic 2020-04-15 00:00:00 65 mm[Hg] [facility] Practice Height 2020-04-15 00:00:00 72 [in_i] [facility] Practice BMI (Body Mass 2020-04-15 00:00:00 36[facility] BP Systolic 2020-04-15 00:00:00 125 mm[Hg] [facility] Body Weight 2020-04-15 00:00:00 268.6 [lb_av] [facility] BP Diastolic 2020-01-05 00:00:00 62 mm[Hg] [facility] Height 2020-01-05 00:00:00 72 [in_i] [facility] BMI (Body Mass 2020-01-05 00:00:00 35.1 kg/m2 [facility]) Practice BP Systolic 2020-01-05 00:00:00 128 mm[Hg] [facility] Body Weight 2020-01-05 00:00:00 258.8 [lb_av] [facility] Procedures Procedure Date / Time Performing Clinician Source Performed DME/SUPPLY JUSTIFICATION 2021-02-25 06:01:00 Doctor Unassigned, No [facility] Plan of Care Planned Activity Planned Date Details Comments Source Diagnostic Test 2021-02-20 glucose, fingerstick, Eric leon Family Pending 00:00:00 blood [code = Practice glucose, fingerstick, blood] Diagnostic Test 2021-02-20 hemoglobin A1C, Beau douglas Pending 00:00:00 fingerstick [code = Practice hemoglobin A1C, fingerstick] Future Appointment 2021-05-23 Brett [facility]ivas [facility] 00:00:[address]; Practice [address], [place] [address] Future Appointment 2021-05-22 Brett Rivas [facility] 15:30:[address]; Practice [address], [place] [address] Encounters Start End Encounter Admission Attending Care Care Encounter Source Date/Time Date/Time Type Type Clinicians Facility Department ID 2021-04-11 2021-04-11 Urgent Adri Evans [email or web address] [id number] Univers 16:20:00 16:40:[address] [facility] [id number] [facility] [id number] Jose Enrique as KENJI?BLEA [id number] [address] MEDICAL OFFICE BUILDING 2021-04-11 2021-04-11 Outpatient R [facility] [id number] Univers 16:20:00 16:20:00 [id number] [facility] 2021-04-11 2021-04-11 Outpatient R RISHITHE [facility] [id number] Univers 16:20:00 16:20:00 [facility] 2021-03-27 2021-03-27 [facility] [id number] Univers 10:00:00 10:00:00 WALTER [facility] 2021-03-25 2021-03-25 [facility] [id number] Univers 14:00:00 14:00:00 WALTER [facility] 2021-03-13 2021-03-13 Outpatient Daniel_T VFP VFP [id number] [id number] [facility] 09:28:00 09:28:00 [id number] Family Practic e 2021-03-04 2021-03-04 Outpatient Daniel_T VFP VFP [id number] [id number] [facility] 07:30:00 07:30:00 [id number] Family Practic e 2021-02-25 2021-02-25 [facility] [id number] Univers 14:54:27 15:43:[address] [facility] [id number] it y of Edward [facility] [id number] Jose Enrique as KENJI?BLEA [id number] [address] MEDICAL OFFICE BUILDING 2021-02-25 2021-02-25 Telephone STEVENSON [facility] [id number] Univers 00:00:00 00:00:[address] [facility] [id number] it y of Edward ANGLERADHA [id number] Jose Enrique as KENJI?BLEA [id number] [address] MEDICAL OFFICE [facility] 2021-02-25 2021-02-25 Orders Doctor BRITTANY [id number] Univers 00:00:00 00:00:00 Only Unassigned, MARICRUZ [id number] ity of [place] [facility] [id number] Jose Enrique as [id number] [address] 2021-02-20 2021-02-20 Outpatient Daniel_T VFP [facility] [id number] [address] [place] [address] 04:26:00 04:26:00 [id number] Family Practic e 2021-02-20 2021-02-20 Estuardo [facility] [place] - [id number] V illage 00:00:00 00:00:00 [facility] Deann Riggs - Pracnidia mejias MD: [id number] VM_DREW_Kamlesh e [facility], [address], [place] [address] , Ph. 2020-12-27 2020-12-27 Outpatient WEST, FB MHFB [id number] MHFB 08:00:00 23:59:00 MAMADOU 2020-12-04 2020-12-04 Outpatient WEST [facility] [id number] MHSW 07:47:00 23:59:00 MAMADOU 2020-11-28 2020-11-28 Outpatient Daniel_T VFP VFP [id number] [address] [place] [address] 09:59:00 09:59:00 [id number] Family Practic e 2020-11-28 2020-11-28 Outpatient Daniel_T VFP VFP [id number] [address] [place] [address] 09:59:00 09:59:00 [id number] Family Practic e 2020-11-28 2020-11-28 Outpatient Daniel_T VFP VFP [id number] [address] [place] [address] 09:58:00 09:58:00 [id number] Family Practic e 2020-11-27 2020-11-27 Outpatient Daniel_T VFP VFP [id number] [address] [place] [address] 05:28:00 05:28:00 [id number] Family Practic e 2020-11-27 2020-11-27 Estuardo VFP [place] - [id number] V illage 00:00:00 00:00:00 [facility] Family [place], Medical - Mateusz mejias MD: [id number] VM_HOU_Shad e Shadow [address], [address], [place] [address] , Ph. 2020-09-24 2020-09-24 [facility] [id number] Univers 14:15:00 14:34:45 WALTER [facility] 2020-09-24 2020-09-24 Office [facility] [id number] 14:03:43 14:18:43 Visit [facility] [id number] Tuan Rosenthal [id number] Profkimmyio [id number] nal [address] One 2020-09-09 2020-09-09 Outpatient RAYO, [facility] [id number] [place] 00:00:00 00:00:00 VANDANA 633 Method i 2020-09-09 2020-09-09 Outpatient RAYO, [facility] [id number] [place] 00:00:00 00:00:00 VANDANA 949 Method i 2020-09-09 2020-09-09 Outpatient RAYO, [facility] [id number] [place] 00:00:00 00:00:00 VANDANA 735 Method i 2020-09-09 2020-09-09 Outpatient RAYO, [facility] [id number] [place] 00:00:00 00:00:00 VANDANA 766 Method i 2020-08-29 2020-08-29 Outpatient Daniel_T VFP VFP [id number] [address] [place] [address] 02:15:00 02:15:00 [id number] Family Practic e 2020-08-29 2020-08-29 Outpatient Daniel_T VFP VFP [id number] [address] [place] [address] 02:15:00 02:15:00 [id number] Family Practic e 2020-08-27 2020-08-27 Outpatient Daniel_T VFP VFP [id number] [address] [place] [address] 05:07:00 05:07:00 [id number] Family Practic e 2020-08-27 2020-08-27 Estuardo VFP [place] - [id number] V illage 00:00:00 00:00:00 [facility] Rupesh, Deann - Mateusz mejias MD: [id number] VM_HOU_Shaemily e [facility], [address], [place] [address] , Ph. 2020-08-22 2020-08-22 Outpatient RAYO, [facility] [id number] [address] [place] 00:00:00 00:00:00 VANDANA 516 Method i 2020-08-22 2020-08-22 Outpatient RAYO, [facility] [id number] [address] [place] 00:00:00 00:00:00 VANDANA 568 Method i 2020-08-22 2020-08-22 Outpatient RAYO, [facility] [id number] [place] 00:00:00 00:00:00 VANDANA 778 Method i 2020-08-22 2020-08-22 Outpatient RAYO, [facility] [id number] [address] [place] 00:00:00 00:00:00 VANDANA 409 Method i 2020-08-22 2020-08-22 Outpatient RAYO, [facility] [id number] [address] [place] 00:00:00 00:00:00 VANDANA 285 Method i 2020-08-22 2020-08-22 Outpatient RAYO, [facility] [id number] [address] [place] 00:00:00 00:00:00 VANDANA [address] 2020-07-15 2020-07-15 Outpatient Jemal GARCIA [facility] [id number] Univers 19:40:00 19:58:52 LATHA melo [facility] 2020-06-08 2020-06-08 Outpatient Daniel_T VFP VFP [id number] [address] [place] [address] 03:30:00 03:30:00 [id number] Family Practic e 2020-05-29 2020-05-29 Outpatient Daniel_T VFP VFP [id number] [address] [place] [address] 10:02:00 10:02:00 [id number] Family Practic e 2020-05-27 2020-05-27 Outpatient Daniel_T VFP VFP [id number] [address] [place] [address] 05:54:00 05:54:00 [id number] Family Practic e 2020-05-27 2020-05-27 Estuardo VFP [place] - [id number] V illage 00:00:00 00:00:00 [facility] Deann - Pracnidia mejias MD: [id number] Jack mcguire [facility], [address], [place] [address] , Ph. 2020-05-10 2020-05-10 Outpatient Daniel_T VFP VFP [id number] [address] [place] [address] 01:04:00 01:04:00 [id number] Family Practic e 2020-04-17 2020-04-17 Outpatient Daniel_T VFP VFP [id number] [address] [place] [address] 04:52:00 04:52:00 [id number] Family Practic e 2020-04-15 2020-04-15 Outpatient Daniel_T VFP VFP [id number] [address] [place] [address] 04:49:00 04:49:00 [id number] Family Practic e 2020-04-15 2020-04-15 Estuardo VFP [place] - [id number] V illage 00:00:00 00:00:00 [facility] Family GoddardDeann - Pracnidia mejias MD: [id number] Jack mcguire [facility], [address], [place] [address] , Ph. 2020-04-04 2020-04-04 Outpatient Daniel_T VFP VFP [id number] [address] [place] [address] 10:35:00 10:35:00 [id number] Family Practic e 2020-04-03 2020-04-03 Outpatient Daniel_T VFP VFP [id number] [address] [place] [address] 09:51:00 09:51:00 Family Practic e 2020-04-02 2020-04-02 Outpatient Daniel_T VFP VFP [id number] [address] [place] [address] 11:47:00 11:47:00 [id number] Family Practic e 2020-02-04 2020-02-06 Inpatient MICKY TURNER [facility] [id number] [place] 00:00:00 00:00:[address] 2020-01-18 2020-01-18 Outpatient Daniel_T VFP VFP [id number] [address] [place] [address] 05:21:00 05:21:00 [id number] Family Practic e 2020-01-12 2020-01-12 Outpatient Daniel_T VFP VFP [id number] [address] [place] [address] 04:24:00 04:24:00 Family Practic e 2020-01-05 2020-01-05 Outpatient Daniel_T VFP VFP [id number] [address] [place] [address] 04:08:00 04:08:00 Family Practic e 2020-01-05 2020-01-05 Estuardo VFP [place] - [id number] V illage 00:00:00 00:00:00 [facility] [place], Deann - Mateusz mejias MD: [id number] VM_HOU_Dani e [facility], [address] [address] , Ph. 2020-01-04 2020-01-04 Outpatient Daniel_T VFP VFP [id number] [address] [place] [address] 05:32:00 05:32:00 Family Practic e 2019-12-13 2019-12-13 Outpatient daniel_t VFP VFP [id number] [address] [place] [address] 05:07:00 05:07:00 Family Practic e 2019-11-28 2019-11-29 Emergency TU, JENA [facility] [id number] [place] 00:00:00 00:00:[address] 2019-10-12 2019-10-12 Emergency SANDRA TUCKER-TE [facility] [id number] [place] 00:00:00 00:00:[address] 2019-10-11 2019-10-11 Outpatient CLARA JUNIOR [facility] [id number] [place] 00:00:00 00:00:[address] 2019-10-09 2019-10-09 Outpatient SANDI, CLARA [facility] [id number] [place] 00:00:00 00:00:[address] 2019-09-11 2019-09-11 Outpatient SANDI, CLARA [facility] [id number] [place] 00:00:00 00:00:[address] 2019-07-25 2019-07-30 Inpatient TARUN, [facility] [id number] [place] 00:00:00 00:00:00 CHEAL [address] 2019-02-10 2019-02-16 Inpatient VALENTÍN, [facility] [id number] 98 [place] 00:00:00 00:00:00 WALTER [address] [facility] Results Test Description Test Time Test Comments Results Result Comments Source Hemoglobin A1c measurement device panel 2021-02-20 16:27:03 Test Item Value Reference Range Interpretation Comme nts Hemoglobin A1C Fingerstick: (test code = Hemoglobin A1C Fingerstick :) 8.7 [facility] PracticeHemoglobin A1c measurement device [id number] 16:27:03 Test Item Value Reference Range Interpretation Comments Hemoglobin A1C Fingerstick: (test code 8.7 = Hemoglobin A1C Fingerstick:) [facility] PracticeGlucose [Mass/volume] in Capillary [id number] 16:26:03 Test Item Value Reference Range Interpretation Comments Blood Glucose: mg/dl (test code = Blood 267 Glucose: mg/dl) [facility] [id number] 16:26:03 Test Item Value Reference Range Interpretation Comments Blood Glucose: mg/dl (test code = Blood 267 Glucose: mg/dl) [facility] RNA [Presence] in Respiratory specimen by ESAU with probe [id number] 23:47:43 Test Item Value Reference Range Interpretation Comments SARS-CoV-2 (COVID-19) RNA Not detected Not-Detected [Presence] in Respiratory specimen by ESAU with probe detection (test code = 53098-0) SARS coronavirus 2 RNA [Presence] in Respiratory specimen by ESAU with probe [id number] 02:49:39 Test Item Value Reference Range Interpretation Comments SARS coronavirus 2 RNA Not detected Not-Detected [Presence] in Respiratory specimen by ESAU with probe detection (test code = 56569-1) SARS coronavirus 2 RNA [Presence] in Respiratory specimen by ESAU with probe [id number] 08:09:07 Test Item Value Reference Range Interpretation Comments SARS coronavirus 2 RNA Not detected Not-Detected [Presence] in Respiratory specimen by ESAU with probe detection (test code = 72266-0) SARS coronavirus 2 RNA [Presence] in Respiratory specimen by ESAU with probe [id number] 18:12:06 Test Item Value Reference Range Interpretation Comments SARS coronavirus 2 RNA Not detected Not-Detected [Presence] in Respiratory specimen by ESAU with probe detection (test code = 29358-2)
[2021-04-12] MEDS ORDERED: ONDANSETRON 4 MG/2 ML VIAL ONE (17:37)
[2021-04-12 17:59] LABS: Lymphocytes % 14.3 % (15.3-44.8); MPV 7.7 fL (7.6-11.3); RBC Red Blood Cell Count 3.25 M/uL (4.33-5.43)
[2021-04-12 18:07] LABS: Protime INR 0.95
--- NOTE | 2021-04-12 18:37 | RAD REPORT ---
EXAM DESCRIPTION: RAD - Chest Single View - 04/12/2021 6:29 pm CLINICAL HISTORY: CHEST PAIN Chest pain. COMPARISON: Chest Single View dated 04/20/2020; Chest Single View dated 02/04/2020; CHEST SINGLE VIEW dated 04/23/2011; CHEST PA AND LAT 2 VIEW dated 05/27/1999 FINDINGS: Portable technique limits examination quality. The lungs are grossly clear. The heart is upper limit of normal in size. No displaced fractures.
[2021-04-12 18:38] LABS: ALT/SGPT 33 U/L (12-78); AST/SGOT 11 U/L (15-37); Albumin 3.6 g/dL (3.4-5.0); Alkaline Phosphatase 156 U/L (45-117); BUN Blood Urea Nitrogen 75 mg/dL (7-18); Bicarbonate 26 mmol/L (21-32); Bilirubin Direct 0.1 mg/dL (0-0.2); Bilirubin Total 0.5 mg/dL (0.2-1.0); Glucose Level 153 mg/dL (74-106); Magnesium 2.4 mg/dL (1.8-2.4); NT PRO-BNP 600 pg/mL (<125); Protein, Total 7.3 g/dL (6.4-8.2); Sodium Level 138 mmol/L (136-145); Troponin (Emerg Dept Use Only) < 0.02 ng/mL (0.0-0.045)
[2021-04-12 19:30] LABS: SARS-COV-2 RT PCR NEGATIVE (NEGATIVE)
--- NOTE | 2021-04-12 21:57 | ER ---
Nurse's Notes [facility] Name: Dg Camacho Age: 60 yrs Sex: Male : 1960 Arrival Date: 04/12/2021 Time: 17:04 Bed 7 Private MD: Balta Degroot Diagnosis: Chest pain, unspecified Presentation: 04/12 17:11 Chief complaint: Patient states: I am having dizziness, chest pressure, sob, and nausea jg9 today, I just don't feel right. I have a potential staph infection to my left butt cheek that I am on abx for. Patient also is on peritoneal dialysis but missed yesterday. Coronavirus screen: Vaccine status: Patient reports receiving the 2nd dose of the covid vaccine. Patient reports receiving the 1st dose of the Covid vaccine. Ebola Screen: Patient negative for fever greater than or equal to 101.5 degrees Fahrenheit, and additional compatible Ebola Virus Disease symptoms Patient denies exposure to infectious person. Patient denies travel to an Ebola-affected area in the 21 days before illness onset. Initial Sepsis Screen: Does the patient meet any 2 criteria? No. Patient's initial sepsis screen is negative. Does the patient have a suspected source of infection? No. Patient's initial sepsis screen is negative. Risk Assessment: Do you want to hurt yourself or someone else? Patient reports no desire to harm self or others. 17:11 Method Of Arrival: Ambulatory 9 17:11 Acuity: LIZ 3 j9 17:15 Onset of symptoms is unknown. 9 17:15 Chief complaint:. jg9 Triage Assessment: 17:14 General: Appears in no apparent distress. Behavior is calm, cooperative. Pain: jg9 Complains of pain in chest-chest pressure. Cardiovascular: Reports pressure. Historical: - Allergies: 17:13 PENICILLINS; jg9 - PMHx: 17:13 Diabetes - IDDM; Dialysis; ESRD; Hypertension; jg9 - PSHx: 17:13 peritoneal cath.; jg9 - Immunization history:: Adult Immunizations Client reports receiving the 2nd dose of the Covid vaccine, Client reports receiving the 1st dose of the Covid vaccine, Pneumococcal vaccine is not up to date, Flu vaccine is not up to date. - Social history:: Smoking status: Patient denies any tobacco usage or history of. Screenin:15 Abuse screen: Denies threats or abuse. Denies injuries from another. Nutritional jg9 screening: No deficits noted. Tuberculosis screening: No symptoms or risk factors identified. Fall Risk None identified. Assessment: 17:15 General: SEE TRIAGE NOTE. bp 17:45 Pain: Pain does not radiate. Pain began 1 day ago. tw2 18:13 Reassessment: Patient appears in no apparent distress at this time. No changes from tw2 previously documented assessment. Patient and/or family updated on plan of care and expected duration. Pain level reassessed. Patient is alert, oriented x 3, equal unlabored respirations, skin warm/dry/pink. 19:45 General: Appears in no apparent distress. Behavior is appropriate for age. Neuro: No sm5 deficits noted. Level of Consciousness is awake, alert, Oriented to person, place, time, situation. Cardiovascular: Capillary refill < 3 seconds Patient's skin is warm and dry. Respiratory: Airway is patent Trachea midline Respiratory effort is even, unlabored. 20:45 Reassessment: No changes from previously documented assessment. Patient and/or family sm5 updated on plan of care and expected duration. Pain level reassessed. 21:45 Reassessment: No changes from previously documented assessment. sm5 22:29 Reassessment: No changes from previously documented assessment. 5 Vital Signs: 17:11 BP 162 / 78; Pulse 86; Resp 20 S; Temp 99.2(TE); Pulse Ox 100% ; Weight 117.48 kg; jg9 Height 6 ft. 0 in. (182.88 cm) (R); 17:30 BP 125 / 62; Pulse 73; Resp 12; Pulse Ox 99% ; bp 18:13 BP 146 / 58; Pulse 72; Resp 17; Pulse Ox 98% on R/A; tw2 18:47 BP 140 / 60; Pulse 72; Resp 12; Pulse Ox 99% on R/A; tw2 19:30 BP 153 / 57; Pulse 77; Resp 12; Pulse Ox 99% ; sm5 20:30 BP 148 / 58; Pulse 78; Resp 15; Pulse Ox 100% ; sm5 21:30 BP 149 / 59; Pulse 75; Resp 17; Pulse Ox 100% ; sm5 22:20 BP 151 / 78; Pulse 70; Resp 17; Pulse Ox 99% ; sm5 17:11 Body Mass Index 35.13 (117.48 kg, 182.88 cm) jg9 ED Course: 17:04 Patient arrived in ED. as 17:05 Balta Degroot MD is Private Physician. as 17:13 Triage completed. jg9 17:15 Arm band placed on right wrist. jg9 17:15 Patient has correct armband on for positive identification. jg9 17:17 Saqib Russo NP is PHCP. pm1 17:17 Melvina Mary MD is Attending Physician. pm1 17:29 Jesus Virk, MIRZA is Primary Nurse. bp 17:34 Inserted saline lock: 22 gauge in left antecubital area, using aseptic technique. jg9 17:45 monitoring coordinator on. Pulse ox on. NIBP on. Warm blanket given. tw2 17:45 Patient maintains SpO2 saturation greater than 95% on room air. tw2 18:29 XRAY Chest (1 view) In Process Unspecified. EDMS 19:17 Primary Nurse role handed off by Jesus Virk, MIRZA 9 19:37 Rena Fuentes, MIRZA is Primary Nurse. sm5 21:29 Troponin (emerg Dept Use Only) Sent. sm5 21:56 Balta Degroot MD is Referral Physician. pm1 22:32 No provider procedures requiring assistance completed. IV discontinued, intact, sm5 bleeding controlled, No redness/swelling at site. Pressure dressing applied. Administered Medications: 17:45 Drug: Zofran (Ondansetron) 4 mg Route: IVP; Site: left antecubital; tw2 Outcome: 21:57 Discharge ordered by . pm1 22:32 Discharged to home ambulatory. sm5 22:32 Condition: good 22:32 Discharge instructions given to patient, Instructed on discharge instructions, follow up and referral plans. Demonstrated understanding of instructions, follow-up care. 22:33 Patient left the ED. sm5 Signatures: Dispatcher [employer] EDMS Frida Hlil as Saqib Russo NP ASSISTANT PURCHASING MANAGER pm1 Ally Cope RN RN tw2 Jesus Virk, RN Jannie Pino cs9 Rena Fuentes RN RN sm5 Danni Dobson RN RN jg9 Corrections: (The following items were deleted from the chart) 17:14 17:11 Chief complaint: Patient states: I am having dizziness, chest pressure and nausea jg9 today, I just don't feel right. I have a potential staph infection to my left butt cheek. jg9 17:16 17:11 Chief complaint: Patient states: I am having dizziness, chest pressure and nausea jg9 today, I just don't feel right. I have a potential staph infection to my left butt cheek. Patient also is on peritoneal dialysis but missed yesterday. jg9
--- NOTE | 2021-04-12 21:57 | EDPHYS ---
Physician Documentation [facility] Name: Dg Camacho Age: 60 yrs Sex: Male : 1960 Arrival Date: 04/12/2021 Time: 17:04 Bed 7 Private MD: Balta Degroot ED Physician Melvina Mary HPI: 04/12 17:36 This 60 yrs old Male presents to ER via Ambulatory with complaints of Dizziness, Chest pm1 Pressure, Shortness Of Breath. 17:36 The patient presents with dizziness. Onset: The symptoms/episode began/occurred this pm1 morning. Context: occurred at home. Modifying factors: The symptoms are alleviated by nothing, the symptoms are aggravated by possibly missing dialysis treatment last night, peritoneal dialysis. Associated signs and symptoms: Pertinent positives: chest pressure and shortness of breath relieved with breathing treatment. Severity of symptoms: in the emergency department the symptoms are unchanged. The patient has not recently seen a physician. Patient missed his dialysis treatment due to taking his pet dog to the ER last night. Historical: - Allergies: 17:13 PENICILLINS; jg9 - PMHx: 17:13 Diabetes - IDDM; Dialysis; ESRD; Hypertension; jg9 - PSHx: 17:13 peritoneal cath.; jg9 - Immunization history:: Adult Immunizations Client reports receiving the 2nd dose of the Covid vaccine, Client reports receiving the 1st dose of the Covid vaccine, Pneumococcal vaccine is not up to date, Flu vaccine is not up to date. - Social history:: Smoking status: Patient denies any tobacco usage or history of. ROS: 17:36 Constitutional: Negative for fever, chills, and weight loss. pm1 17:36 Back: Negative for injury and pain, : Negative for injury, bleeding, discharge, and swelling, MS/Extremity: Negative for injury and deformity, Skin: Negative for injury, rash, and discoloration. 17:36 Cardiovascular: Positive for chest pain, Negative for edema, palpitations. 17:36 Respiratory: Positive for shortness of breath, Negative for cough. 17:36 Abdomen/GI: Positive for nausea, Negative for abdominal pain, vomiting, diarrhea, constipation. 17:36 Neuro: Positive for dizziness, Negative for headache. 17:36 All other systems are negative. Exam: 17:36 Constitutional: This is a well developed, well nourished patient who is awake, alert, pm1 and in no acute distress. Head/Face: Normocephalic, atraumatic. 17:36 Abdomen/GI: Soft, non-tender, with normal bowel sounds. No distension or tympany. No guarding or rebound. No evidence of tenderness throughout. Back: No spinal tenderness. No costovertebral tenderness. Full range of motion. Skin: Warm, dry with normal turgor. Normal color with no rashes, no lesions, and no evidence of cellulitis. MS/ Extremity: Pulses equal, no cyanosis. Neurovascular intact. Full, normal range of motion. 17:36 Eyes: Exam is negative for acute changes, Extraocular movements: intact throughout, Conjunctiva: no acute changes, no injection. 17:36 ENT: Exam is negative for acute changes, Mouth: no acute changes, Lips: normal, moist, Oral mucosa: normal, pink and intact, moist. 17:36 Cardiovascular: Exam negative for acute changes, Rate: normal, Rhythm: regular, Pulses: no pulse deficits are appreciated, Heart sounds: normal, Edema: is not appreciated. 17:36 Respiratory: Exam negative for acute changes, respiratory distress, shortness of breath, Breath sounds: are clear throughout. 17:36 Neuro: Exam negative for acute changes, Orientation: is normal, Mentation: is normal, Motor: is normal, moves all fours. Vital Signs: 17:11 BP 162 / 78; Pulse 86; Resp 20 S; Temp 99.2(TE); Pulse Ox 100% ; Weight 117.48 kg; jg9 Height 6 ft. 0 in. (182.88 cm) (R); 17:30 BP 125 / 62; Pulse 73; Resp 12; Pulse Ox 99% ; bp 18:13 BP 146 / 58; Pulse 72; Resp 17; Pulse Ox 98% on R/A; tw2 18:47 BP 140 / 60; Pulse 72; Resp 12; Pulse Ox 99% on R/A; tw2 19:30 BP 153 / 57; Pulse 77; Resp 12; Pulse Ox 99% ; sm5 20:30 BP 148 / 58; Pulse 78; Resp 15; Pulse Ox 100% ; sm5 21:30 BP 149 / 59; Pulse 75; Resp 17; Pulse Ox 100% ; sm5 22:20 BP 151 / 78; Pulse 70; Resp 17; Pulse Ox 99% ; sm5 17:11 Body Mass Index 35.13 (117.48 kg, 182.88 cm) jg9 MDM: 17:19 Patient medically screened. pm1 21:16 Data reviewed: vital signs. Data interpreted: Pulse oximetry: on room air is 99 %. pm1 Interpretation: normal. Counseling: I had a detailed discussion with the patient and/or guardian regarding: the historical points, exam findings, and any diagnostic results supporting the discharge/admit diagnosis, lab results, radiology results, the need for outpatient follow up, to return to the emergency department if symptoms worsen or persist or if there are any questions or concerns that arise at home. 04/12 17:30 Order name: Basic Metabolic Panel pm1 04/12 17:30 Order name: CBC with Diff; Complete Time: 18:15 pm1 04/12 17:30 Order name: LFT's; Complete Time: 18:42 pm1 04/12 17:30 Order name: Magnesium; Complete Time: 18:42 pm1 04/12 17:30 Order name: NT PRO-BNP; Complete Time: 18:42 pm1 04/12 17:30 Order name: PT-INR; Complete Time: 18:15 pm1 04/12 17:30 Order name: Troponin (emerg Dept Use Only); Complete Time: 18:42 pm1 04/12 17:30 Order name: XRAY Chest (1 view); Complete Time: 18:42 pm1 04/12 17:30 Order name: EKG; Complete Time: 17:31 pm1 04/12 17:30 Order name: Cardiac monitoring; Complete Time: 17:35 pm1 04/12 17:31 Order name: Basic Metabolic Panel; Complete Time: 18:42 EDMS 04/12 17:31 Order name: COVID-19/FLU A+B (Document "Date of Onset" if Symptomatic); Complete Time: pm1 19:31 04/12 21:17 Order name: Troponin (emerg Dept Use Only); Complete Time: 21:55 pm1 04/12 17:30 Order name: EKG - Nurse/Tech; Complete Time: 17:35 pm1 04/12 17:30 Order name: IV Saline Lock; Complete Time: 17:34 pm1 04/12 17:30 Order name: Labs collected and sent; Complete Time: 17:34 pm1 04/12 17:30 Order name: O2 Per Protocol; Complete Time: 17:34 pm1 04/12 17:30 Order name: O2 Sat Monitoring; Complete Time: 17:34 pm1 Administered Medications: 17:45 Drug: Zofran (Ondansetron) 4 mg Route: IVP; Site: left antecubital; tw2 Disposition Summary: 04/12/21 21:57 Discharge Ordered Location: Home pm1 Problem: new pm1 Symptoms: have improved pm1 Condition: Stable pm1 Diagnosis - Chest pain, unspecified pm1 Followup: pm1 - With: Emergency Department - When: As needed - Reason: Worsening of condition Followup: pm1 - With: Balta Degroot MD - When: 2 - 3 days - Reason: Recheck today's complaints, Continuance of care, Re-evaluation by your physician Discharge Instructions: - Discharge Summary Sheet pm1 - Nonspecific Chest Pain, Adult pm1 Forms: - Medication Reconciliation Form pm1 - Thank You Letter pm1 - Antibiotic Education pm1 - Prescription Opioid Use pm1 Signatures: Dispatcher [employer] EDMS Saqib Russo, ZAK PROJECT ACCOUNT MANAGER pm1 Ally Cope, RN RN tw2 Danni Dobson RN RN jg9
[2021-04-12 22:59] VITALS: BP 151/78; O2SAT 99
[2021-04-12 23:00] VITALS: TEMP 99.2
== END 2021-04-12 22:33 | disposition home or self-care (01) ==
LOC: ER 17:03
DX: R07.9 Chest pain, unspecified (principal); R42 Dizziness and giddiness; I12.0 Hypertensive chronic kidney disease with stage 5 chronic kidney disease or end stage renal disease; E11.22 Type 2 diabetes mellitus with diabetic chronic kidney disease; N18.6 End stage renal disease; Z20.822 Contact with and (suspected) exposure to COVID-19
CPT/HCPCS: 93005; 85025; 80048; 36415; 83735; 85610; 80076; 84484 ×2; 83880; 0240U; 71045; 96374; 99285; J2405